=== PATIENT | female | born 1945 | race Caucasian/White ===

== ENCOUNTER 2016-08-13 10:20 | Outpatient (CLI) | payer OTHER ==
[2016-01-28 12:23] VITALS: BMI 27.9
--- NOTE | 2016-08-13 12:55 | DI ---
EXAM: Left shoulder three view HISTORY: Right shoulder pain COMPARISON: None FINDINGS: The bones are normal. The glenohumeral joint and acromioclavicular joint are normal. No f ocal soft tissue abnormality. Vi there is atherosclerosis in the aortic arch. There are surgical cl ips right neck. IMPERSSION: Normal examination right shoulder.
--- NOTE | 2016-08-13 13:04 | DI ---
EXAM: Two views of the right hip HISTORY: Right hip pain with no known injury. COMPARISON: Pelvic x-ray 10/23/2008 FINDINGS: There is no lytic or blastic lesion of the right hip. There is no displaced fracture or di slocation. Joint spaces are maintained. There is scattered osteophyte formation of the hip joint. The soft tissues are normal. IMPRESSION: Mild degenerative change of the right hip with no displaced fracture or dislocation.
--- NOTE | 2016-08-13 13:06 | DI ---
EXAM: Lumbar spine three view HISTORY: Back pain COMPARISON: 04/29/2015 TECHNIQUE: Three views lumbar spine were performed FINDINGS: Sacroiliac joints intact. Sacral arcuate intact. Mild leftward curvature lumbar spine. There are mild chronic compression deformities of L1, possibly L2 and L3, and L4, appear unchanged. Bones appear demineralized. No acute fracture. No subluxation. Multilevel marginal osteophyte fo rmation. Suggestion of facet arthrosis in the lower lumbar spine. Atherosclerotic vascular calcifi cation. IMPRESSION: 1. Chronic discogenic degenerative disease and facet arthrosis. 2. Multiple chronic compression deformities, unchanged. 3. Bones appear demineralized.
== END 2016-08-13 10:21 | disposition home or self-care (01) ==
LOC: RAD 10:20
PROVIDERS: ATTEND Internal Medicine
DX: M25.511 Pain in right shoulder (principal); M25.551 Pain in right hip; M54.9 Dorsalgia, unspecified

== ENCOUNTER 2016-10-21 09:06 | Outpatient (CLI) ==
[2016-01-28 12:23] VITALS: BMI 27.9
[2016-10-21] MEDS ORDERED: PROLIA SUBCUT STA (09:18)
[2016-10-21 09:19] VITALS: TEMP 98.4
== END 2016-10-21 09:07 | disposition home or self-care (01) ==
LOC: OPMED 09:06
PROVIDERS: ATTEND Internal Medicine
DX: M81.0 Age-related osteoporosis without current pathological fracture (principal)
CPT/HCPCS: 96372

== ENCOUNTER 2017-05-06 08:32 | Outpatient (CLI) ==
[2016-01-28 12:23] VITALS: BMI 27.9
[2017-05-06] MEDS ORDERED: PROLIA SUBCUT STA (09:11)
[2017-05-06 09:13] VITALS: BP 126/76; TEMP 97.8
== END 2017-05-06 08:33 | disposition home or self-care (01) ==
LOC: OPMED 08:32
PROVIDERS: ATTEND Internal Medicine
DX: M81.0 Age-related osteoporosis without current pathological fracture (principal)
CPT/HCPCS: 96372

== ENCOUNTER 2017-09-20 13:03 | Emergency (ER) ==
[2017-09-20 13:18] VITALS: TEMP 97; BMI 28.9
--- NOTE | 2017-09-20 13:50 | ED.PDOC ---
General ED Provider: Dr. ANTONIO ODOM Chief Complaint: Hypertension Stated Complaint: In to ER due to her Blood pressure noted to be elevated this am. She took her Morning dose of hyzaar 1/2 tablet 100/25 but when BP remained elevated additional therapy was take until total dosing of 200/50 mg Hyzar administerer. Time Seen by Physician: 15:15 Mode of Arrival: Walk-In Information Source: Patient, Family Primary Care Provider: RANDY GOEL Nursing and Triage Documentation Reviewed and Agree: Yes Reviewed sepsis parameters & appropriate labs ordered?: Yes System Inflammatory Response Syndrome: Not Applicable Sepsis Protocol: For patient's 13 years and over: Temp is 96.8 and below OR 101 and greater Pulse >90 BPM Resp >20/minute Acutely Altered Mental Status Are patient's symptoms suggestive of a new infection, such as: -Pneumonia -Skin, Soft Tissue -Endocarditis -UTI -Bone, Joint Infection -Implantable Device -Acute Abdominal Infection -Wound Infection -Meningitis -Blood Stream Catheter Infection -Unknown System Inflammatory Response Syndrome: Not Applicable Cardiovascular Complaint Exam - Hypertension Complaint/Exam Symptoms Are: Still present Timing: Intermittent Aggravating: Reports: Exertion, Position Alleviating: Reports: Rest Associated Signs and Symptoms: Reports: Anxiety, Headache (Head fullness). Denies: Chest pain, Vision changes, Recent stress, Numbness, Tingling, Weakness , Dizziness, Short of air, Swelling Related History: Reports: Similar episode, Current ARBs Related Surgical History: Reports: None Cardiac Risk Factors: Reports: Hypertension Recent Change in Medications: Yes (was recently started on prednisone for pleurodynia) A/V Nicking: No Review of Systems - Review Of Systems Constitutional: Reports: No symptoms Eyes: Reports: No symptoms Ears, Nose, Mouth, Throat: Reports: No symptoms Respiratory: Reports: No symptoms Cardiac: Reports: No symptoms GI: Reports: No symptoms : Reports: No symptoms Musculoskeletal: Reports: No symptoms Skin: Reports: No symptoms, Dryness Neurological: Reports: Headache All Other Systems: Reviewed and Negative Past Medical History - Past Medical History Previously Healthy: Yes Endocrine: Reports: Dyslipidemia Cardiovascular: Reports: Hypertension Respiratory: Reports: None Hematological: Reports: None Gastrointestinal: Reports: None Genitourinary: Reports: None Neuro/Psych: Reports: None Musculoskeletal: Reports: None Cancer: Reports: None Last Menstrual Period: Unknown - Surgical History General Surgical History: Reports: Hysterectomy, Cholecystectomy, Other ( Carotid endarterectomy november 2011) - Family History Family History: Reports: Hypertension - Social History Smoking Status: Former smoker Hx Substance Use: No Alcohol Screening: None - Immunizations Tetanus Shot up to Date: Yes Physical Exam - Physical Exam Appearance: Well-appearing Ill-appearing: Mild Pain Distress: None Eyes: EDWARD, EOMI, Conjunctiva clear, Conjunctiva inflammed ENT: Ears normal, Nose normal, Oropharynx normal Neck: Supple Respiratory: Airway patent, Breath sounds clear, Breath sounds equal Cardiovascular: RRR, Pulses normal, No rub, No murmur GI/: Soft, Nontender, No masses, Bowel sounds normal Musculoskeletal: Normal strength, ROM intact, No edema Skin: Warm, Dry, Normal color Neurological: Sensation intact, Motor intact, Alert, Oriented Psychiatric: Affect appropriate, Mood appropriate Critical Care Note - Critical Care Note Total Time (mins): 0 Course - Course Hematology/Chemistry: 09/20/17 15:53 09/20/17 15:53 Orders, Labs, Meds: Lab Review 09/20/17 09/20/17 15:53 15:53 WBC 12.39 H RBC 4.42 Hgb 13.1 Hct 38.5 MCV 87.1 MCH 29.6 MCHC 34.0 RDW Coeff of Cristiane 13.5 Plt Count 378 Immature Gran % (Auto) 0.6 Neut % (Auto) 84.4 Lymph % (Auto) 11.5 Sabine % (Auto) 3.1 Eos % (Auto) 0.1 Baso % (Auto) 0.3 Immature Gran # (Auto) 0.1 Neut # (Auto) 10.4 H Lymph # (Auto) 1.4 Sabine # (Auto) 0.4 Eos # (Auto) 0.0 Baso # (Auto) 0.0 Sodium 143 Potassium 3.7 Chloride 104 Carbon Dioxide 26 Anion Gap 16.7 BUN 19 H Creatinine 0.79 Estimated GFR (MDRD) 71.00 BUN/Creatinine Ratio 24.05 Glucose 122 H Calcium 9.8 Total Bilirubin 0.7 AST 13 L ALT 15 Alkaline Phosphatase 63 Total Protein 6.7 Albumin 3.1 L Globulin 3.6 Albumin/Globulin Ratio 0.86 Orders Category Date Time Status EKG-(ED ONLY) Stat CARDIO 09/20/17 15:33 Completed CBC W/ AUTO DIFF Stat LAB 09/20/17 15:53 Completed CMP [COMPREHENSIVE METABOLIC PANEL] Stat LAB 09/20/17 15:53 Completed Amlodipine Besylate [Norvasc] MEDS 09/20/17 17:58 Discontinued 5 mg PO ONCE STA CT HEAD W/O CONTRAST Stat RADS 09/20/17 17:20 Completed Medications Discontinued Medications Generic Name Dose Route Start Last Admin Trade Name Evan PRN Reason Stop Dose Admin Amlodipine Besylate 5 mg 09/20/17 17:58 09/20/17 18:05 Norvasc PO 09/20/17 17:59 5 mg ONCE STA Administration Vital Signs: Temp Pulse Resp BP Pulse Ox 09/20/17 18:45 186/78 H 09/20/17 18:38 197/86 H 09/20/17 18:00 149/69 H 09/20/17 17:45 186/71 H 09/20/17 17:30 179/92 H 09/20/17 17:15 178/71 H 09/20/17 17:00 178/79 H 09/20/17 13:05 97.0 F L 69 18 153/81 H 90 L FREDERIC Risk Score FREDERIC Risk Score: Risk Score Odds of by 30D 0 0.1 (0.1-0.2) 1 0.3 (0.2-0.3) 2 0.4 (0.3-0.5) 3 0.7 (0.6-0.9) 4 1.2 (1.0-1.5) 5 2.2 (1.9-2.6) 6 3.0 (2.5-3.6) 7 4.8 (3.8-6.1) Departure - Departure Time of Disposition: 19:00 Disposition: HOME SELF-CARE Discharge Problem: Uncontrolled hypertension Instructions: Hypertension (ED) Condition: Good Pt referred to PMD for follow-up: Yes (1 week) IPMP verified?: No Prescriptions: Amlodipine Besylate [Norvasc] 5 mg PO BEDTIME #30 tablet Allergies/Adverse Reactions: Allergies cefaclor [From Ceclor] Adverse Reaction (Verified 09/20/17 13:18) chlorzoxazone [From Parafon Forte] Adverse Reaction (Verified 09/20/17 13:18) Iodinated Contrast- Oral and IV Dye [Iodinated Contrast Media - IV Dye] Adverse Reaction (Verified 09/20/17 13:18) latex Adverse Reaction (Verified 09/20/17 13:18) nitrofurantoin macrocrystal [From Macrodantin] Adverse Reaction (Verified 13:18) Home Medications: Ambulatory Orders Calcium Carbonate [Calcium] 500 mg PO DAILY 10/08/13 Clopidogrel Bisulfate [Plavix] 75 mg PO DAILY 10/08/13 Carvedilol [Coreg] 12.5 mg PO BIDWM #30 tablet 10/10/13 Escitalopram Oxalate [Lexapro] 20 mg PO DAILY 10/01/14 Amlodipine Besylate [Norvasc] 5 mg PO BEDTIME #30 tablet 09/20/17 Ciprofloxacin HCl [Cipro] 250 mg PO DAILY 09/20/17 Losartan/Hydrochlorothiazide [Hyzaar 50-12.5 mg Tab] 1 tab PO BID 09/20/17 Prednisone 10 mg PO DAILYWM 09/20/17 Disposition Discussed With: Patient, Family (Instructed to attempt relaxation techniques as home) Additional Information: Recommended adding Amlodipine 5 mg daily beginning in ER department to better stabilize BP. Apparently pt has been taking 1/2 tablet Hyzar 100/[address] Goel who concurs with the addition of the Amlodipine 5 mg 1 dailyi in PM with 1 hyzar in the AM daily Discussed with Patient and her daughter.
[2017-09-20] MEDS ORDERED: NORVASC PO STA (17:58)
--- NOTE | 2017-09-20 18:27 | CT ---
EXAM: CT head without contrast 09/20/2017. Sagittal and coronal reformatted images obtained HISTORY: Head fullness. Elevated blood pressure COMPARISON: 02/05/2014 FINDINGS: There is no evidence of intracranial hemorrhage. The midline is maintained. There is no h ydrocephalus. Generalized atrophy and chronic small vessel ischemic changes. Chronic right basal ga nglia calcifications appear stable. No cerebellar tonsillar ectopia. Evaluation of the calvarium sh ows no fracture. The mastoid air cells are normally pneumatized. IMPRESSION: No acute intracranial abnormality. Stable chronic findings as described above.
[2017-09-20] MEDS ORDERED: CATAPRES PO STA (19:43)
[2017-09-20] MEDS ORDERED: CATAPRES ONE (19:44)
[2017-09-20 20:18] VITALS: BP 156/74
== END 2017-09-20 20:22 | disposition home or self-care (01) ==
LOC: ED 13:03
DX: I10 Essential (primary) hypertension (principal); R51 Headache; E78.5 Hyperlipidemia, unspecified; Z79.899 Other long term (current) drug therapy
CPT/HCPCS: 36415; 80053; 85025; 93005; 93010; 99283

== ENCOUNTER 2017-09-23 08:55 | Outpatient (CLI) ==
--- NOTE | 2017-09-23 11:10 | NM ---
EXAM: Renal flow and function study HISTORY: Hypertension COMPARISON: None. TECHNIQUE: Patient was injected 9 mCi of technetium 99m labeled Mag III intravenously. Renal flow an d function study was acquired. FINDINGS: Renal perfusion is normal. Left kidney functions normally. There is dilatation of the rig ht renal pelvis. The left renogram curve was normal. Right renogram curves suggests obstruction. S plit renal function is 42% on the right and 58% on the left. IMPRESSION: 1. Renal perfusion is normal. 2. Normally functioning left kidney. 3. Right hydronephrosis. Correlate with ultrasound.
== END 2017-09-23 08:56 | disposition home or self-care (01) ==
LOC: RAD 08:55
PROVIDERS: ATTEND Internal Medicine
DX: I10 Essential (primary) hypertension (principal); I70.1 Atherosclerosis of renal artery

== ENCOUNTER 2017-09-28 09:49 | Outpatient (CLI) ==
--- NOTE | 2017-09-28 12:35 | US ---
EXAM: Ultrasound retroperitoneal complete. HISTORY: Right hydronephrosis. COMPARISON: Nuclear medicine renal scan 09/23/2017. Abdominal CT 11/30/2011. TECHNIQUE: Multiple brito scale and color Doppler images. FINDINGS: Right kidney measures 9.7 x 3.4 x 3.5 cm. The left kidney measures 10.3 x 5.2 x 3.4 cm. There is mild right renal pelviectasis without caliectasis. Focal hyperechoic area in the lateral as pect of the mid left renal cortex noted which demonstrates posterior shadowing. There is no left hyd ronephrosis.. Urinary bladder is unremarkable. IMPRESSION: 1. Mild right pelviectasis which could represent an extrarenal pelvis given lack of caliectasis. Th ere is no significant right hydronephrosis to correspond to the abnormality on recent nuclear medicin e scan. 2. Left renal cortical calcification, not well characterized by ultrasound. 3. Abdominal CT would provide further characterization of the above findings.
== END 2017-09-28 09:50 | disposition home or self-care (01) ==
LOC: RAD 09:49
PROVIDERS: ATTEND Internal Medicine
DX: N13.30 Unspecified hydronephrosis (principal)
CPT/HCPCS: 76770

== ENCOUNTER 2017-09-30 07:56 | Outpatient (CLI) ==
--- NOTE | 2017-09-30 09:55 | CT ---
EXAM: CT ABDOMEN AND PELVIS HISTORY: Abnormal renal ultrasound indicating possible right hydronephrosis and left renal calculus. TECHNIQUE: CT abdomen and pelvis without intravenous contrast. Images were reconstructed using 3 mm section thickness. Reformations were prepared. COMPARISON: 11/30/2011 CT, review of recent ultrasound report. FINDINGS: Liver and spleen are within normal limits on this unenhanced exam. There is a round 4.3 mm calcificat ion in the splenic hilum which may represent a vascular calcification or a tiny splenic arterial aneu rysm. This is grossly stable since 2012. Gallbladder is absent. Pancreas and adrenal glands within normal limits. There is a round 5 mm calcification of the lateral left renal cortex. No other renal calcifications. Ureters are clear. No hydronephrosis. Moderate vascular calcifications. Tiny sliding hiatal hernia. Appendix has been removed per history. Normal bowel gas pattern. Minimal sigmoid diverticulosis. Urinary bladder is normal. No uterus is seen. There is no ascites. No ventral abdominal wall hernia. Degenerative disc and facet disease of the spine. Moderate Schmor l's node L1 superior endplate. Lung bases are clear. No pneumoperitoneum. IMPRESSION: 1. No right hydronephrosis identified. 2. There is a 5 mm calcification of the left kidney which is most likely parenchymal rather than a r enal stone. 3. Round 4.3 mm calcification in the splenic hilum which may represent a vascular calcification or a tiny splenic arterial aneurysm. This is grossly stable since 2012. 4. Tiny sliding hiatal hernia. 5. Moderate vascular calcifications especially of the aorta and iliac vessels may represent diabetic angiopathy and / or atherosclerosis.
== END 2017-09-30 07:57 | disposition home or self-care (01) ==
LOC: RAD 07:56
PROVIDERS: ATTEND Internal Medicine
DX: R93.429 Abnormal radiologic findings on diagnostic imaging of unspecified kidney (principal)

== ENCOUNTER 2018-01-09 10:44 | Outpatient (CLI) | payer OTHER ==
[2018-01-09 10:58] VITALS: BP 106/70; TEMP 97.2
[2018-01-09] MEDS ORDERED: PROLIA SUBCUT STA (11:01)
--- NOTE | 2018-01-09 12:02 | MAMMO ---
EXAM: Digital screening mammogram with tomosynthesis HISTORY: Screening COMPARISON: Screening FINDINGS: Digital MLO and CC views of the right and left breast were performed. Tomosynthesis was p erformed. Computer aided detection utilized. There are scattered fibroglandular densities. There is no evidence for mass, asymmetry, distortion, or suspicious calcifications in either breast. IMPRESSION: 1. No evidence of malignancy in the right or left breast. 2. Annual screening mammogram is recommended in one year. BIRADS category 1, negative examination
== END 2018-01-09 10:45 | disposition home or self-care (01) ==
LOC: RAD 10:44
PROVIDERS: ATTEND Internal Medicine
DX: Z12.31 Encounter for screening mammogram for malignant neoplasm of breast (principal); M81.0 Age-related osteoporosis without current pathological fracture
CPT/HCPCS: 77067; 96372

== ENCOUNTER 2018-03-13 15:00 | Outpatient (CLI) | payer OTHER ==
--- NOTE | 2018-03-13 16:56 | DI ---
EXAM: Three views of the left ankle. History: Left ankle swelling. Findings: No acute fracture or dislocation. No abnormal calcifications or radiopaque foreign bodies . Joint spaces are preserved. Mild diffuse subcutaneous edema. Impression: No acute osseous abnormality. Mild diffuse subcutaneous edema
== END 2018-03-13 15:01 | disposition home or self-care (01) ==
LOC: RAD 15:00
PROVIDERS: ATTEND Internal Medicine
DX: M25.572 Pain in left ankle and joints of left foot (principal); M25.472 Effusion, left ankle

== ENCOUNTER 2018-07-14 09:00 | Outpatient (CLI) ==
--- NOTE | 2018-07-14 09:53 | CT ---
EXAM: CT of the chest without contrast History: Chest pain. Comparison: Chest radiograph 07/06/2018, chest CT 06/21/2014 Technique: Multiplanar CT images through the thorax were obtained without the administration of IV c ontrast. 3-D reconstructions were also acquired Findings: Heart size is normal. No thoracic aortic aneurysm. No pericardial effusion. Atherosclero tic vascular calcifications of the thoracic aorta. No axillary lymphadenopathy. No pathologically e nlarged mediastinal or hilar lymph nodes. Calcified granulomas again seen within the thorax. Biapic al lung scarring again noted. Mild to moderate emphysema again appreciated. Scattered areas of subs egmental atelectasis similar to the prior study. No consolidated pneumonia. No pleural fluid and no pneumothorax. No suspicious lung masses or lung nodules. Within the visualized upper abdomen, status post cholecystectomy. No acute osseous abnormalities. A few old chronic compression deformities seen within the spine. Impression: 1. No acute intrathoracic process. 2. Emphysema. 3. No change in the biapical lung scarring and scattered areas of subsegmental atelectasis.
== END 2018-07-14 09:01 | disposition home or self-care (01) ==
LOC: RAD 09:00
PROVIDERS: ATTEND Internal Medicine
DX: R91.8 Other nonspecific abnormal finding of lung field (principal); R07.81 Pleurodynia
CPT/HCPCS: 36415

== ENCOUNTER 2018-07-21 10:09 | Outpatient (CLI) ==
[2018-07-21] MEDS ORDERED: PROLIA SUBCUT STA (10:25)
[2018-07-21 10:41] VITALS: BP 154/83; TEMP 97.2
== END 2018-07-21 10:33 | disposition home or self-care (01) ==
LOC: OPMED 10:09
PROVIDERS: ATTEND Internal Medicine
DX: M81.0 Age-related osteoporosis without current pathological fracture (principal)
CPT/HCPCS: 96372

== ENCOUNTER 2018-09-20 07:49 | Outpatient (CLI) | END 2018-09-20 07:50 | disposition home or self-care (01) | LOC: AMBL 07:49 | PROVIDERS: ATTEND Internal Medicine | DX: R42 Dizziness and giddiness (principal) ==

== ENCOUNTER 2019-03-06 08:08 | Outpatient (CLI) ==
--- NOTE | 2019-03-06 09:31 | DEXA ---
EXAM: Bone Densitometry DEXA HISTORY: Postmenopausal FINDINGS: DEXA scan of the lumbar spine was performed. Quality of the study is good. Bone mineral density is 0.85 a grams per square centimeter. T-score is negative 2.7. Z-score is negative 1.0. DEXA scan left hip was performed. Quality of the study is good. Bone marrow density is 0.875 with a T-score of negative 1.1 and a Z-score of 0.6. Bone marrow density of the femoral neck is 0.776 with a T-score of negative 1.9 and a Z-score of 0.0. DEXA scan right hip was performed. Quality of the study is good. Bone marrow density is 0.884 with a T-score of negative 1.0 and a Z-score of 0.7. Bone marrow density of the femoral neck is 0.777 wit h a T-score of negative 1.9 and a T-score of 0.0. IMPRESSION: 1. Lumbar spine: Osteoporosis. 2. Left hip: Osteopenia 3. Left femoral neck: Osteopenia 4. Right hip: Borderline osteopenia 5. Right femoral neck: Osteopenia 6. 10 year risk for major osteoporotic fracture is 19.3% and for hip fracture is 4.5%. Reference Values according to World Health Organization criteria: T score greater than -1 is normal T score -1 to -2.5 is osteopenia T score less than -2.5 is osteoporosis.
--- NOTE | 2019-03-07 09:25 | MAMMO ---
EXAM: Digital screening mammogram with Tomosynthesis HISTORY: Screening COMPARISON: 01/09/2018 FINDINGS: Digital MLO and CC views of the right and left breast were performed. Tomosynthesis was performed. Computer aided detection utilized. There are scattered fibroglandular densities. There i s no evidence for mass, asymmetry, distortion, or suspicious calcifications in either breast. IMPRESSION: 1. No evidence of malignancy in the right or left breast. 2. Annual screening mammogram is recommended in one year. BIRADS category 1, negative examination
== END 2019-03-06 08:09 | disposition home or self-care (01) ==
LOC: RAD 08:08
PROVIDERS: ATTEND Internal Medicine
DX: Z12.31 Encounter for screening mammogram for malignant neoplasm of breast (principal); Z78.0 Asymptomatic menopausal state

== ENCOUNTER 2019-03-09 12:17 | Emergency (ER) | payer OTHER ==
--- NOTE | 2019-03-09 12:20 | ED.PDOC ---
General ED Provider: Dr. ESPERANZA HENNING Chief Complaint: Back Pain Stated Complaint: Back pain - lower thoracic - pain radiating to bilateral ribs - hurts to take deep breath. Started 3 days ago - twisting getting out of car and felt an instantaneous pain. Hx of osteoporosis - on Prolia X 3 years. Time Seen by Physician: 12:37 Mode of Arrival: Wheelchair Information Source: Patient Exam Limitations: No limitations Primary Care Provider: RANDY GOEL Nursing and Triage Documentation Reviewed and Agree: Yes Does patient meet sepsis criteria?: No System Inflammatory Response Syndrome: Not Applicable Sepsis Protocol: For patient's 13 years and over: Temp is 96.8 and below OR 101 and greater Pulse >90 BPM Resp >20/minute Acutely Altered Mental Status Are patient's symptoms suggestive of a new infection, such as: -Pneumonia -Skin, Soft Tissue -Endocarditis -UTI -Bone, Joint Infection -Implantable Device -Acute Abdominal Infection -Wound Infection -Meningitis -Blood Stream Catheter Infection -Unknown Review of Systems - Review Of Systems Constitutional: Reports: No symptoms Respiratory: Reports: No symptoms Musculoskeletal: Reports: Back pain (Thoracic) All Other Systems: Reviewed and Negative Past Medical History - Past Medical History Previously Healthy: Yes Endocrine: Reports: Dyslipidemia Cardiovascular: Reports: Hypertension Respiratory: Reports: None Hematological: Reports: None Gastrointestinal: Reports: None Genitourinary: Reports: None Neuro/Psych: Reports: None Musculoskeletal: Reports: None Cancer: Reports: None - Surgical History General Surgical History: Reports: Hysterectomy, Cholecystectomy, Other ( Carotid endarterectomy november 2011) - Family History Family History: Reports: Hypertension - Social History Smoking Status: Former smoker Hx Substance Use: No Alcohol Screening: None Physical Exam - Physical Exam Appearance: Well-appearing Ill-appearing: None Pain Distress: Moderate (When lying still on exam bed) Respiratory: Airway patent, Breath sounds clear, Breath sounds diminished Cardiovascular: RRR, Pulses normal GI/: Soft, Nontender, No masses Musculoskeletal: Normal strength, ROM intact, No edema Skin: Warm, Dry, Normal color Neurological: Sensation intact, Motor intact, Alert, Oriented Psychiatric: Affect appropriate, Mood appropriate Interpretation - Radiology Interpretation Radiology Interpretation By: Radiologist Radiology Results: Positive (Age inderterminate compression FX T9 (new from )) Exam Interpreted: CT Scan (Thoracic) Critical Care Note - Critical Care Note Total Time (mins): 15 Course - Course Orders, Labs, Meds: Orders Category Date Time Status CT THORACIC SPINE W/O CONTRAST Stat RADS 03/09/19 12:47 Completed Vital Signs: Temp Pulse Resp BP Pulse Ox 03/09/19 12:17 97.8 F 67 20 160/84 H 91 L Departure - Departure Time of Disposition: 14:42 Disposition: HOME SELF-CARE Discharge Problem: Compression fracture of body of thoracic vertebra Osteoporosis Qualifiers: Osteoporosis type: unspecified Presence of current pathological fracture: unspecified Qualified Code(s): M81.0 - Age-related osteoporosis without current pathological fracture Instructions: Osteoporosis (ED) Condition: Stable Pt referred to PMD for follow-up: Yes (Make appointment) IPMP verified?: No (N/A) Additional Instructions: Follow up with Dr. Goel; call for appointment. Use pain medications as prescribed. Discuss with primary care provider the probability of a new compression fracture suggested by CT scan. Prescriptions: Tramadol HCl [Ultram] 50 mg PO Q6H #20 tablet Allergies/Adverse Reactions: Allergies cefaclor [From Ceclor] Adverse Reaction (Verified 03/09/19 12:26) chlorzoxazone [From Parafon Forte] Adverse Reaction (Verified 03/09/19 12:26) Iodinated Contrast Media [Iodinated Contrast Media - IV Dye] Adverse Reaction ( Verified 03/09/19 12:26) latex Adverse Reaction (Verified 03/09/19 12:26) nitrofurantoin macrocrystal [From Macrodantin] Adverse Reaction (Verified 12:26) Home Medications: Ambulatory Orders Calcium Carbonate [Calcium] 500 mg PO DAILY 10/08/13 Clopidogrel Bisulfate [Plavix] 75 mg PO DAILY 10/08/13 Escitalopram Oxalate [Lexapro] 20 mg PO DAILY 10/01/14 Carvedilol [Coreg] 12.5 mg PO BIDWM PRN 03/09/19 Denosumab [Prolia] 60 mg SQ DIRECTED 03/09/19 Ezetimibe [Zetia] 10 mg PO DAILY 03/09/19 Tramadol HCl [Ultram] 50 mg PO Q6H #20 tablet 03/09/19 Disposition Discussed With: Patient
[2019-03-09 12:25] VITALS: BP 160/84; TEMP 97.8; BMI 29.2
--- NOTE | 2019-03-09 14:19 | CT ---
EXAM: CT thoracic spine without contrast HISTORY: Upper back pain COMPARISON: CT chest 07/04/2018 TECHNIQUE: CT thoracic spine performed without intravenous contrast. Coronal and sagittal reformatt ed images obtained. FINDINGS: Bones appear demineralized. Mild chronic compression deformity L1 superior endplate. Mil d chronic compression deformity T7. Mild to moderate chronic compression deformity T8. Mild parveen ara fracture deformity T9 is age indeterminate and new from 07/04/2018. Mild multilevel chronic dis cogenic degenerative disease with intervertebral disc space narrowing and marginal osteophyte formati on. Several hemangiomas suggested. Mild rightward curvature thoracic spine. Emphysematous change. Atherosclerosis. Status post cholecystectomy. IMPRESSION: 1. Mild age indeterminate compression fracture T9 is new from 07/04/2018. 2. Additional mild to moderate chronic compression deformities T7, T8, L1. 3. Chronic discogenic degenerative disease. 4. Bones appear demineralized. 5. Emphysema.
== END 2019-03-09 15:20 | disposition home or self-care (01) ==
LOC: ED 12:17
DX: S22.070A Wedge compression fracture of T9-T10 vertebra, initial encounter for closed fracture (principal); S22.060A Wedge compression fracture of T7-T8 vertebra, initial encounter for closed fracture; S32.010A Wedge compression fracture of first lumbar vertebra, initial encounter for closed fracture; M81.0 Age-related osteoporosis without current pathological fracture
CPT/HCPCS: 99282

== ENCOUNTER 2023-08-10 02:05 | Inpatient (IN) ==
--- NOTE | 2023-08-10 02:40 | ED.PDOC ---
General ED Provider: Dr. MICHA ECHOLS DO Chief Complaint: Hypertension Stated Complaint: 78-year-old female presents to the ER complaining of elevated blood pressure. Blood pressure is 220s over 110s on presentation. She reports that she took her blood pressure because she started to get a headache tonight just prior to arrival. She has had a longstanding problem with hypertension and uncontrolled hypertension. She sees Dr. Goel. She reports compliance with her medications to include bisoprolol and triamterene hydrochlorothiazide. She denies chest pain or shortness of breath. Denies recent illness or fever. Denies any syncope, vision changes, hearing changes neck pain or other constitutional symptoms. She is on Plavix for carotid artery disease for which she has had 3 different surgeries the most recent one on July 02. Time Seen by Provider: 08/10/23 02:07 Mode of Arrival: Walk-In Information Source: Patient Primary Care Provider: RANDY GOEL MD Nursing and Triage Documentation Reviewed and Agree: Yes What is Opioid Naive?: *Opioid Naive implies the patient is not already taking opioids or not chronically receiving opioids on a daily basis. *PRN dosing is not "usually" associated with tolerance. *Patients are at higher risk of over-sedation and aspiration. What is Opioid Tolerant?: *Opioid Tolerance implies less than the expected response to an opioid. *Acquired tolerance is defined by the patient taking 60mg of oral morphine daily (or equianalgesic dose of another opioid) for 1 week or more. *Often associated with chronic pain. *May take more than usual dose to achieve desired pain control. Review of Systems Review Of Systems Constitutional: Reports No symptoms Eyes: Reports No symptoms Ears, Nose, Mouth, Throat: Reports No symptoms Respiratory: Reports No symptoms Cardiac: Reports No symptoms : Reports No symptoms Musculoskeletal: Reports No symptoms Skin: Reports No symptoms Neurological: Reports Headache; Denies Numbness, Tingling or Weakness Endocrine: Reports No symptoms Hematologic/Lymphatic: Reports No symptoms [facility] Medical History Hypertension 2013 I10 - Essential (primary) hypertension (ICD-10) Hyperlipidemia for a few years E78.5 - Hyperlipidemia, unspecified (ICD-10) Personal history of mental disorder of pain a few years Z86.59 - Personal history of other mental and behavioral disorders (ICD-10) Social History Smoking and tobacco status: Former smoker History of recent travel: No Surgical History History of gastrointestinal surgery 2012 gall bladder Z98.890 - Other specified postprocedural states (ICD-10) Female Reproductive History Menstrual Hx Hysterectomy: Yes Hx Tubal Ligation: No Physical Exam Physical Exam Appearance: Reports Well-appearing, No pain distress and Well-nourished Eyes: Reports EDWARD and EOMI ENT: Reports Nose normal and Oropharynx normal Neck: Supple Respiratory: Reports Airway patent and Breath sounds clear Cardiovascular: Reports RRR, Pulses normal and Other (Hypertensive) Musculoskeletal: Reports Normal strength, ROM intact and No edema Skin: Reports Warm, Dry and Normal color Neurological: Reports Sensation intact and Motor intact Psychiatric: Reports Affect appropriate and Mood appropriate Interpretation EKG Interpretation Time of EKG #1: 02:15 Rate: Normal Rhythm: Sinus Ectopy: None [place]: NL ST Segment: Normal Interpretation: Nonischemic EKG Course Course 08/10/23 02:08 08/10/23 02:08 Orders, Labs, Meds: Lab Review 08/10/23 08/10/23 08/10/23 02:08 03:14 Unknown WBC 7.10 RBC 4.55 Hgb 13.2 Hct 42.2 MCV 92.7 MCH 29.0 MCHC 31.3 L RDW Coeff of Cristiane 13.7 Plt Count 248 Immature Gran % (Auto) 0.3 Neut % (Auto) 59.3 Lymph % (Auto) 28.6 Humphreys % (Auto) 7.7 Eos % (Auto) 3.8 Baso % (Auto) 0.3 Neut # (Auto) 4.2 Lymph # (Auto) 2.0 Humphreys # (Auto) 0.6 Eos # (Auto) 0.3 Baso # (Auto) 0.0 Immature Gran # (Auto) 0.0 Sodium 138.8 Potassium 4.77 Chloride 106.4 Carbon Dioxide 20.1 L Anion Gap 17.07 BUN 17.0 Creatinine 0.67 Estimated GFR (MDRD) 85.00 BUN/Creatinine Ratio 25.37 Glucose 100.4 Calcium 9.15 Total Bilirubin 1.88 H AST 42.5 H ALT 17.6 Alkaline Phosphatase 41.3 L Troponin I 0.028 NT-Pro-B Natriuret Pep 589 H Total Protein 7.55 Albumin 4.30 Globulin 3.25 Albumin/Globulin Ratio 1.32 Urine Color Yellow Urine Clarity Clear Urine pH 6.5 Ur Specific Lookout 1.025 Urine Protein Negative Urine Glucose (UA) Negative Urine Ketones Negative Urine Blood Trace-intact H Urine Nitrite Negative Urine Bilirubin Negative Urine Urobilinogen 1.0 H Ur Leukocyte Esterase Trace H Urine Microscopic RBC 2-5 Ur Squamous Epith Cells 0-2 Orders Category Date Time Status EKG-(ED ONLY) Stat CARDIO 08/10/23 02:07 Completed CBC W/ AUTO DIFF Stat LAB 08/10/23 02:08 Completed CMP [COMPREHENSIVE METABOLIC PANEL] Stat LAB 08/10/23 02:08 Completed PROBNP ED [NT-PROBNP(ED)] Stat LAB 08/10/23 Completed TROPONIN I Stat LAB 08/10/23 02:08 Completed URINALYSIS C & S IF INDICATED Stat LAB 08/10/23 03:14 Completed Acetaminophen [Tylenol] Meds 08/10/23 02:44 Discontinued 500 mg PO ONCE ONE Clonidine HCl [Catapres] Meds 08/10/23 02:37 Discontinued 0.2 mg PO ONCE ONE Furosemide [Lasix] Meds 08/10/23 03:29 Stat 60 mg IVP ONCE STA Lorazepam [Ativan] Meds 08/10/23 02:40 Discontinued 0.25 mg IVP ONCE STA CHEST, 1V AP ONLY Stat RADS 08/10/23 02:08 Completed Medications Discontinued Medications Generic Name Dose Route Start Last Admin Trade Name Iftikharq PRN Reason Stop Dose Admin Acetaminophen 500 mg 08/10/23 02:44 08/10/23 03:01 Acetaminophen 500 Mg Tablet PO 08/10/23 02:45 500 mg ONCE ONE Administration Clonidine 0.2 mg 08/10/23 02:37 08/10/23 03:01 Clonidine Hcl 0.1 Mg Tablet PO 08/10/23 02:38 0.2 mg ONCE ONE Administration Lorazepam 0.25 mg 08/10/23 02:40 08/10/23 03:00 Lorazepam Inj 2 Mg/Ml Vial IVP 08/10/23 02:41 0.25 mg ONCE STA Administration Vital Signs: Temp Pulse Resp BP Pulse Ox 08/10/23 02:13 98.2 F 60 18 230/120 H 99 AMI Core Aspirin Reason for not ordering Aspirin: not indicated FREDERIC Risk Score Age >/= 65: Yes >/= 3 CAD Risk Factors: No Known CAD (Stenosis >/= 50%): Yes ASA Use in Past 7 Days: Yes Severe Angina (>/= 2 episodes in 24 hours): No EKG ST Changes >/= 0.5mm: No Postive Cardiac Marker: No FREDERIC Total Score: 3 FREDERIC Risk Score: Risk Score Odds of by 30D 0 0.1 (0.1-0.2) 1 0.3 (0.2-0.3) 2 0.4 (0.3-0.5) 3 0.7 (0.6-0.9) 4 1.2 (1.0-1.5) 5 2.2 (1.9-2.6) 6 3.0 (2.5-3.6) 7 4.8 (3.8-6.1) Physician Progress Note: 78-year-old female with history of hypertension presents to the ER hypertensive with headache. Nonfocal neuroexam with respect to cranial nerves, peripheral sensorimotor. Low suspicion for acute neurologic event to include but not limited to CVA, TIA, SAH, SDH, ICH. Afebrile nontoxic doubt infectious etiology. Denies chest pain or shortness of breath. Doubt acute cardiopulmonary processes to include not limited to ACS, MD, PE, pneumothorax, dissection or tamponade. Given age and risk factors however, will evaluate cardiac enzymes in addition to laboratory workup to assess for endorgan damage. Will trial clonidine initially as this was discussed with her in the past for breakthrough hypertension. Her headache is nearly gone but will give a dose of Tylenol as well as the clonidine. Will consider nitroglycerin. The patient has a heart rate between 60 and 65, suspect secondary to her beta-mandi usage, therefore other medications may drop the pulse more than I would prefer in the emergency department this evening. Will review her workup for disposition planning [] 0329: BNP mildly increased. Will give a dose of Lasix. She is currently on a diuretic at home as well. She does have some cardiomegaly on her chest x-ray. Otherwise no evidence of altagracia CHF exacerbation. She is not hypoxic in any distress. Her blood pressure has improved significantly with the clonidine. 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 She does have access to her primary physician as well therefore I feel this patient is stable for discharge at this time. Discharge Plan Discharge Patient Disposition: HOME SELF-CARE Discharge Problem: Hypertensive urgency, Elevated brain natriuretic peptide (BNP) level Instructions: Heart Failure (ED), Hypertensive Crisis (ED) Prescriptions: New clonidine HCl 0.1 mg tablet 0.1 mg PO Q8H PRN (Reason: breakthrough hypertention) Qty: 30 0RF No Action escitalopram oxalate 20 mg tablet See Rx Instructions .ROUTE .COMPLEX Qty: 30 2RF Dose Instruction: TAKE ONE TABLET DAILY GENERIC FOR LEXAPRO Rx Instructions: TAKE ONE TABLET DAILY GENERIC FOR LEXAPRO triamterene-hydrochlorothiazid 37.5-25 mg capsule See Rx Instructions .ROUTE .COMPLEX Qty: 15 3RF Dose Instruction: TAKE ONE CAPSULE THREE TO FOUR TIMES A WEEK FOR LEG EDEMA GENERIC FOR DYAZIDE Rx Instructions: TAKE ONE CAPSULE THREE TO FOUR TIMES A WEEK FOR LEG EDEMA GENERIC FOR DYAZIDE diphenoxylate-atropine [Lomotil] 2.5-0.025 mg tablet 1 tab PO TID PRN (Reason: diarrhea) Qty: 10 0RF clopidogrel [Plavix] 75 MG tablet 75 mg PO DAILY calcium carbonate [Calcium 500] 500 MG tablet 500 mg PO DAILY oxycodone-acetaminophen [Percocet] 2.5-325 mg Tablet 1 tab PO Q6H PRN (Reason: Pain) ferrous sulfate 325 mg (65 mg iron) tablet 325 mg PO BID omeprazole 20 mg capsule,delayed release(DR/EC) 20 mg PO QDAY bisoprolol fumarate 5 mg tablet 5 mg PO QDAY Qty: 30 2RF pravastatin 10 mg tablet 10 mg PO QDAY Did you review [place] 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
--- NOTE | 2023-08-10 02:41 | DI ---
EXAM: AP CHEST. HISTORY: Weakness. FINDINGS: The bones are unremarkable. The cardiac silhouette is enlarged. The pulmonary vasculature is within normal limits. There are calcified granulomas. There is minimal left basilar atelectasis . There is eventration of the right hemidiaphragm. Impression: Left basilar atelectasis. Cardiomegaly.
[2023-08-10 02:50] LABS: BASOPHILS % (AUTO) 0.3 % (0.0-3.0); EOSINOPHILS # (AUTO) 0.3 K/ul (0.0-0.7); EOSINOPHILS % (AUTO) 3.8 % (0.0-7.0); HEMATOCRIT 42.2 % (37.0-47.0); HEMOGLOBIN 13.2 g/dl (12.0-16.0); IMMATURE GRANULOCYTE % (AUTO) 0.3 % (0.0-5.0); LYMPHOCYTES % (AUTO) 28.6 (10.0-50.0); MEAN CORPUSCULAR HGB CONC 31.3 (31.8-35.4); MEAN CORPUSCULAR VOLUME 92.7 fl (81.0-99.0); MONOCYTES # (AUTO) 0.6 K/uL (0.4-2.0); MONOCYTES % (AUTO) 7.7 (0-10); NEUTROPHILS # (AUTO) 4.2 K/ul (2.0-6.9); NEUTROPHILS % (AUTO) 59.3 % (42.2-75.2); PLATELET COUNT 248 10^3/uL (140-440); RDW COEFFICIENT OF VARIATION 13.7 % (11.6-14.8); RED BLOOD COUNT 4.55 10^6/ul (4.20-5.40)
[2023-08-10] MEDS: ATIVAN IVP STA (03:00)
[2023-08-10] MEDS: CATAPRES PO ONE (03:01)
[2023-08-10] MEDS: TYLENOL PO ONE (03:01)
[2023-08-10 03:03] LABS: ALANINE AMINOTRANSFERASE 17.6 U/L (0-35); ALBUMIN 4.3 g/dL (3.5-5.0); ALKALINE PHOSPHATASE 41.3 U/L (53-141); ASPARTATE AMINO TRANSFERASE 42.5 U/L (14-36); BILIRUBIN,TOTAL 1.88 mg/dL (0.2-1.3); CALCIUM 9.15 mg/dL (8.4-10.2); CARBON DIOXIDE 20.1 mmol/L (22-30.0); CHLORIDE 106.4 mmol/L (98-107); CREATININE 0.67 mg/dL (0.60-1.30); GLUCOSE 100.4 mg/dL (74-106); POTASSIUM 4.77 mmol/L (3.5-5.1); SODIUM 138.8 mmol/L (134.5-145); TOTAL PROTEIN 7.55 g/dL (6.3-8.2)
[2023-08-10 03:14] LABS: TROPONIN I 0.028 ng/ml (0.0000-0.120)
[2023-08-10 03:21] LABS: BILIRUBIN,URINE Negative (NEGATIVE); CLARITY,URINE Clear (CLEAR); COLOR,URINE Yellow (YELLOW); GLUCOSE, URINE (UA) Negative (NEGATIVE); KETONES,URINE Negative (NEGATIVE); LEUKOCYTE ESTERASE ,URINE Trace (NEGATIVE); NITRITE,URINE Negative (NEGATIVE); PH,URINE 6.5 (5-9); PROTEIN,URINE Negative (NEGATIVE); URINE, BLOOD Trace-intact (NEGATIVE)
[2023-08-10 03:24] LABS: SQUAMOUS EPITHELIAL CELL,UR 0-2 (0-5)
[2023-08-10] MEDS: LASIX IVP STA (03:38)
[2023-08-10] MEDS: SODIUM CHLORIDE 500 ML IV ONE (04:12)
[2023-08-10] MEDS: ZOFRAN 4 MG/2 ML IVP STA (05:03)
[2023-08-10] MEDS: GLUCAGEN IVP STA (05:04)
[2023-08-10] MEDS: EPINEPHRINE 1 MG/10 ML SYRINGE ONE (05:10)
[2023-08-10] MEDS: SODIUM CHLORIDE IV SCH (05:44)
[2023-08-10] MEDS: EPINEPHRINE IV SCH (05:44)
[2023-08-10] MEDS: EPINEPHRINE 1 MG/ML AMP ONE (05:45)
[2023-08-10] MEDS: LEVOPHED 4 MG/250 ML NS 4 MG/250 ML BAG IV SCH (06:00)
[2023-08-10] MEDS: LEVOPHED 4 MG/250 ML NS 4 MG/250 ML BAG IV ONE (06:03)
[2023-08-10 06:38] LABS: SARS COV-2 RNA RAPID NAAT NEGATIVE (NEGATIVE)
[2023-08-10] MEDS: SODIUM CHLORIDE 1,000 ML IV ONE (07:05)
[2023-08-10 08:31] VITALS: BMI 28.9
[2023-08-10] MEDS: EPINEPHRINE 1 MG/10 ML SYRINGE IVP STA (09:18)
[2023-08-10] MEDS: DOPAMINE 400 MG/250 ML D5W 400 MG/250 ML BAG IV SCH (10:03)
[2023-08-10] MEDS: SODIUM CHLORIDE 1,000 ML IV SCH (10:13)
[2023-08-10] MEDS ORDERED: LOMOTIL PO PRN (11:05)
[2023-08-10] MEDS: PROTONIX PO SCH (15:22)
[2023-08-10] MEDS: PRILOSEC PO SCH (15:43)
[2023-08-10] MEDS: PRAVACHOL PO SCH ×2 (15:43→17:35)
[2023-08-10] MEDS: FERROUS SULFATE PO SCH (17:34)
[2023-08-10] MEDS: PLAVIX PO SCH (17:34)
[2023-08-10] MEDS ORDERED: NON-FORMULARY MEDICATION (Ferrous Sulfate 325 mg (65 mg iron) tablet) PO SCH (21:00)
[2023-08-11 06:30] LABS: BASOPHILS # (AUTO) 0.1 K/uL (0-0.2); BASOPHILS % (AUTO) 0.9 % (0.0-3.0); EOSINOPHILS # (AUTO) 0.3 K/ul (0.0-0.7); EOSINOPHILS % (AUTO) 4.5 % (0.0-7.0); HEMATOCRIT 37.1 % (37.0-47.0); HEMOGLOBIN 11.8 g/dl (12.0-16.0); IMMATURE GRANULOCYTE % (AUTO) 0.2 % (0.0-5.0); LYMPHOCYTES # (AUTO) 1.8 K/uL (0.60-3.4); MEAN CORPUSCULAR HEMOGLOBIN 29.5 pg (27.0-31.0); MEAN CORPUSCULAR HGB CONC 31.8 (31.8-35.4); MEAN CORPUSCULAR VOLUME 92.8 fl (81.0-99.0); MONOCYTES # (AUTO) 0.5 K/uL (0.4-2.0); MONOCYTES % (AUTO) 7.1 (0-10); NEUTROPHILS # (AUTO) 3.9 K/ul (2.0-6.9); NEUTROPHILS % (AUTO) 59.3 % (42.2-75.2); PLATELET COUNT 215 10^3/uL (140-440); RDW COEFFICIENT OF VARIATION 13.6 % (11.6-14.8); WHITE BLOOD COUNT 6.51 K/ul (4.6-10.2)
[2023-08-11 06:44] LABS: ALANINE AMINOTRANSFERASE 13.6 U/L (0-35); ALBUMIN 3.57 g/dL (3.5-5.0); ALKALINE PHOSPHATASE 51.8 U/L (53-141); ASPARTATE AMINO TRANSFERASE 26.5 U/L (14-36); BILIRUBIN,TOTAL 1.94 mg/dL (0.2-1.3); BLOOD UREA NITROGEN 14.1 mg/dL (7-17); CALCIUM 8.81 mg/dL (8.4-10.2); CHLORIDE 105.9 mmol/L (98-107); CREATININE 0.63 mg/dL (0.60-1.30); GLUCOSE 104.6 mg/dL (74-106); POTASSIUM 3.62 mmol/L (3.5-5.1); SODIUM 139.1 mmol/L (134.5-145); TOTAL PROTEIN 6.06 g/dL (6.3-8.2)
[2023-08-11 06:54] LABS: CARBON DIOXIDE 28.8 mmol/L (22-30.0)
[2023-08-11] MEDS: CALCIUM 500 + VIT D 5 MCG (200 IU) TABLET PO SCH (08:09)
[2023-08-11] MEDS: LEXAPRO PO SCH (08:10)
[2023-08-11] MEDS ORDERED: CALCIUM CARBONATE 500 MG PO SCH (09:00)
[2023-08-11] MEDS: DYAZIDE PO SCH (09:23)
[2023-08-11] MEDS: DECADRON IM ONE (09:24)
[2023-08-11] MEDS: COZAAR PO SCH (09:24)
--- NOTE | 2023-08-11 14:01 | HP ---
DATE OF SERVICE: 08/10/23 REASON FOR HOSPITALIZATION: Hypertension HISTORY OF PRESENT ILLNESS: 78 year old white female was seen in the emergency room early in the morning 08/10/23 with complaint of having severe hypertension noted at home. The patient's blood pressure was 220-240 at home. In the emergency room it was noted to be 230/120. Also had headache with it. The patient was given 0.2mg of Clonidine. The blood pressure bottomed out and was systolic of 60. The patient had mild dizziness with it. The patient had taken Clonidine PRN 0.1mg a couple of time a day for blood pressure over 160 in the past. PAST MEDICAL HISTORY/PAST SURGICAL HISTORY: History of labile hypertension for number of years Severe chronic lung disease from smoking in the past Compression fracture T9, T7 and T8 Back pain Severe osteoporosis Right carotid endarterectomy followed by vascular surgeon History of bilateral lung nodule Anemia followed by Dr. Baker Dyslipidemia Depression treated with Lexapro Status post cholecystectomy History of renal artery stenosis History of noncompliance REVIEW OF SYSTEMS: CONSTITUTIONAL: No night sweats. No fatigue, malaise, lethargy. No fever or chills. HEENT: Eyes: No visual changes. No eye pain. No eye discharge. ENT: No runny nose. No epistaxis. No sinus pain. No sore throat. No odynophagia. No ear pain. No congestion. RESPIRATORY: No cough, no congestion. No hemoptysis. No shortness of breath. CARDIOVASCULAR: No angina symptoms. No CHF symptoms. No atypical chest pain for CAD. No palpitations. No PND. No orthopnea. GASTROINTESTINAL: No abdominal pain. No nausea or vomiting. No diarrhea or constipation. No hematemesis. No hematochezia. GENITOURINARY: No urgency. No frequency. No dysuria. No hematuria. No obstructive symptoms. No discharge. No pain. No significant abnormal bleeding. MUSCULOSKELETAL: No musculoskeletal pain. No joint swelling. No arthritis. NEUROLOGICAL: No headache. No neck pain. No syncope. No seizures. No dizziness. PSYCHIATRIC: Not anxious. No depression. No suicidal thoughts. No homicidal thoughts. SKIN: No rash. No lesions. No wounds. ENDOCRINE: No unexplained weight loss. No weight gain. HEMATOLOGIC/LYMPHATIC: No anemia. No purpura. No petechiae. No prolonged or excessive bleeding. No palpable lymph nodes. PERSONAL/FAMILY/SOCIAL HISTORY: The patient is nonsmoker, used to be heavy smoker. Quit a few years ago. no alcohol abuse, , lives with the . She does all activity of daily living. MEDICATIONS: Calcium Carbonate Clopidogrel oxycodone Ferrous sulfate Omeprazole Lexapro Dyazide Lomotil Bisoprolol Pravastatin Clonidine PRN Oxycodone ALLERGIES: Cefaclor Iodinated contrast Latex Nitrofurantoin Sulfa Keflex PHYSICAL EXAMINATION: GENERAL: The patient is oriented to time, place and person. VITAL SIGNS: Temperature 97.6, pulse 70, respiratory rate 18, blood pressure 104/50 and pulse ox 95% on room air. The patient is on 2mcg Levophed drip. HEENT: Head normocephalic, atraumatic. Eyes: Extraocular muscles are intact. Pupils are equal, round and reactive to light and accommodation. Ears: No lesions. Nose appeared normal. Throat: No exudate or erythema. Kyphosis present. NECK: Supple. No JVD, no carotid bruit. No lymphadenopathy or thyromegaly. LUNGS: Decreased breath sounds with good air entry. Clear to auscultation. Percussion note normal. Chest symmetrical. HEART: S1, S2, no S3. No murmur. No cyanosis or clubbing. No ascites. Pulses: Dorsalis pedis and posterior tibial pulses +1 to +2 bilaterally. ABDOMEN: Soft. Nontender. Bowel sounds active. No CVA tenderness. No mass felt. EXTREMITIES: No edema. Full range of motion of all extremities, equal. NEUROLOGIC: No focal deficit. Cranial nerves II through XII are grossly intact. No headache, no double vision or headache. SKIN: Not dry. Intact. Turgor - normal. LYMPHATIC: No palpable lymph nodes/no lymphedema. MUSCULOSKELETAL: Normal joints with no swelling. Muscle tone is normal. LABS: EKG sinus rhythm, possible LVH. no acute changes. Hgb 13, hct 42, WBC 7,100 normal differential, creatinine 0.6, BUN 17, potassium 2.7, liver profile normal. PRO BNP 589. The patient was given IV Lasix and then Clonidine 0.2mg which blood pressure dropped to systolic 60. The patient is being given IV fluids. The patient is on Levophed drip with blood pressure systolic more than 100. Hypotension induced by Clonidine ASSESSMENT: 1. Hypotension induced by Clonidine 1. Hypertensive emergency systolic blood pressure of 220 in emergency room. 3. Labile hypertension 4. Severe generalized atherosclerosis 5. Dyslipidemia 6. Severe chronic lung disease with history of smoking 7. Compression fracture T7, [address] Ponce 8. Right carotid endarterectomy followed by vascular surgeon 9. Chronic anemia followed by Dr. Baker 10. Depression controlled with Lexapro PLAN: 1. Admit the patient to special care unit 2. Routine telemetry orders 3. Discontinue Levophed 4. Start the patient on Dopamine drip 5mcg per KG per minute, keep the systolic more than 100 5. The patient will undergo Artery blood flow studies. 6. The daughter is present in the room. 7. The patient is oriented to time, place and person. Discussed all the problems. At the present time the patient's condition it stable. Will follow. TIME SPENT: More than 75 minutes. ALAN
[2023-08-11] MEDS: TYLENOL PO ONE (20:37)
[2023-08-12 05:30] LABS: BASOPHILS % (AUTO) 0.4 % (0.0-3.0); EOSINOPHILS # (AUTO) 0.1 K/ul (0.0-0.7); EOSINOPHILS % (AUTO) 0.7 % (0.0-7.0); HEMATOCRIT 38.8 % (37.0-47.0); HEMOGLOBIN 12.3 g/dl (12.0-16.0); IMMATURE GRANULOCYTE % (AUTO) 0.4 % (0.0-5.0); LYMPHOCYTES # (AUTO) 1.9 K/uL (0.60-3.4); LYMPHOCYTES % (AUTO) 20.5 (10.0-50.0); MEAN CORPUSCULAR HEMOGLOBIN 28.9 pg (27.0-31.0); MEAN CORPUSCULAR HGB CONC 31.7 (31.8-35.4); MEAN CORPUSCULAR VOLUME 91.1 fl (81.0-99.0); MONOCYTES # (AUTO) 0.6 K/uL (0.4-2.0); MONOCYTES % (AUTO) 6.1 (0-10); NEUTROPHILS # (AUTO) 6.7 K/ul (2.0-6.9); NEUTROPHILS % (AUTO) 71.9 % (42.2-75.2); PLATELET COUNT 234 10^3/uL (140-440); RDW COEFFICIENT OF VARIATION 13.5 % (11.6-14.8); RED BLOOD COUNT 4.26 10^6/ul (4.20-5.40); WHITE BLOOD COUNT 9.35 K/ul (4.6-10.2)
[2023-08-12 05:41] LABS: ALANINE AMINOTRANSFERASE 14.9 U/L (0-35); ALBUMIN 4.23 g/dL (3.5-5.0); ALKALINE PHOSPHATASE 59.9 U/L (53-141); ASPARTATE AMINO TRANSFERASE 26.9 U/L (14-36); BILIRUBIN,TOTAL 1.53 mg/dL (0.2-1.3); BLOOD UREA NITROGEN 17.6 mg/dL (7-17); CALCIUM 9.71 mg/dL (8.4-10.2); CARBON DIOXIDE 27.3 mmol/L (22-30.0); CHLORIDE 104.4 mmol/L (98-107); CREATININE 0.68 mg/dL (0.60-1.30); POTASSIUM 4.07 mmol/L (3.5-5.1); SODIUM 136.9 mmol/L (134.5-145); TOTAL PROTEIN 7.08 g/dL (6.3-8.2)
[2023-08-12] MEDS: NORVASC PO ONE (12:39)
[2023-08-12] MEDS: ATIVAN PO SCH (20:30)
[2023-08-12] MEDS: NORVASC PO SCH (20:30)
[2023-08-13 05:47] LABS: BASOPHILS # (AUTO) 0.1 K/uL (0-0.2); BASOPHILS % (AUTO) 0.9 % (0.0-3.0); EOSINOPHILS # (AUTO) 0.3 K/ul (0.0-0.7); EOSINOPHILS % (AUTO) 3.7 % (0.0-7.0); HEMATOCRIT 39.8 % (37.0-47.0); HEMOGLOBIN 12.6 g/dl (12.0-16.0); IMMATURE GRANULOCYTE % (AUTO) 0.3 % (0.0-5.0); LYMPHOCYTES # (AUTO) 1.9 K/uL (0.60-3.4); LYMPHOCYTES % (AUTO) 26.5 (10.0-50.0); MEAN CORPUSCULAR HEMOGLOBIN 29.4 pg (27.0-31.0); MEAN CORPUSCULAR HGB CONC 31.7 (31.8-35.4); MEAN CORPUSCULAR VOLUME 92.8 fl (81.0-99.0); MONOCYTES # (AUTO) 0.5 K/uL (0.4-2.0); NEUTROPHILS # (AUTO) 4.3 K/ul (2.0-6.9); NEUTROPHILS % (AUTO) 61.6 % (42.2-75.2); PLATELET COUNT 217 10^3/uL (140-440); RDW COEFFICIENT OF VARIATION 13.8 % (11.6-14.8); RED BLOOD COUNT 4.29 10^6/ul (4.20-5.40); WHITE BLOOD COUNT 7.03 K/ul (4.6-10.2)
[2023-08-13 06:07] LABS: ALANINE AMINOTRANSFERASE 13.4 U/L (0-35); ALBUMIN 4.17 g/dL (3.5-5.0); ALKALINE PHOSPHATASE 58.9 U/L (53-141); ASPARTATE AMINO TRANSFERASE 21.9 U/L (14-36); BILIRUBIN,TOTAL 1.93 mg/dL (0.2-1.3); BLOOD UREA NITROGEN 21.4 mg/dL (7-17); CALCIUM 10.29 mg/dL (8.4-10.2); CARBON DIOXIDE 30.9 mmol/L (22-30.0); CHLORIDE 99.7 mmol/L (98-107); CREATININE 0.77 mg/dL (0.60-1.30); POTASSIUM 3.86 mmol/L (3.5-5.1); TOTAL PROTEIN 7.1 g/dL (6.3-8.2)
[2023-08-13] MEDS: NORVASC PO ONE (07:22)
[2023-08-13] MEDS: DESYREL PO SCH (20:40)
[2023-08-13] MEDS ORDERED: ATIVAN PO SCH (21:00)
[2023-08-14 06:30] LABS: BASOPHILS # (AUTO) 0.1 K/uL (0-0.2); BASOPHILS % (AUTO) 0.7 % (0.0-3.0); EOSINOPHILS # (AUTO) 0.1 K/ul (0.0-0.7); EOSINOPHILS % (AUTO) 1.6 % (0.0-7.0); HEMATOCRIT 39.4 % (37.0-47.0); HEMOGLOBIN 12.7 g/dl (12.0-16.0); IMMATURE GRANULOCYTE % (AUTO) 0.5 % (0.0-5.0); LYMPHOCYTES # (AUTO) 1.6 K/uL (0.60-3.4); LYMPHOCYTES % (AUTO) 19.7 (10.0-50.0); MEAN CORPUSCULAR HEMOGLOBIN 29.5 pg (27.0-31.0); MEAN CORPUSCULAR HGB CONC 32.2 (31.8-35.4); MEAN CORPUSCULAR VOLUME 91.6 fl (81.0-99.0); MONOCYTES # (AUTO) 0.7 K/uL (0.4-2.0); MONOCYTES % (AUTO) 8.5 (0-10); NEUTROPHILS # (AUTO) 5.7 K/ul (2.0-6.9); PLATELET COUNT 236 10^3/uL (140-440); WHITE BLOOD COUNT 8.21 K/ul (4.6-10.2)
[2023-08-14 06:36] LABS: ALANINE AMINOTRANSFERASE 15.3 U/L (0-35); ALBUMIN 4.22 g/dL (3.5-5.0); ALKALINE PHOSPHATASE 59.2 U/L (53-141); ASPARTATE AMINO TRANSFERASE 28.2 U/L (14-36); BILIRUBIN,TOTAL 2.22 mg/dL (0.2-1.3); BLOOD UREA NITROGEN 38.1 mg/dL (7-17); CALCIUM 9.65 mg/dL (8.4-10.2); CARBON DIOXIDE 27.3 mmol/L (22-30.0); CREATININE 1.82 mg/dL (0.60-1.30); GLUCOSE 127.7 mg/dL (74-106); SODIUM 136.2 mmol/L (134.5-145); TOTAL PROTEIN 7.15 g/dL (6.3-8.2)
[2023-08-14 06:38] LABS: POTASSIUM 4.44 mmol/L (3.5-5.1)
[2023-08-14 10:08] LABS: OCCULT BLOOD SAMPLE 1 NEGATIVE (NEGATIVE)
[2023-08-14 10:15] LABS: ALANINE AMINOTRANSFERASE 14.7 U/L (0-35); ALBUMIN 4.42 g/dL (3.5-5.0); ALKALINE PHOSPHATASE 61.3 U/L (53-141); ASPARTATE AMINO TRANSFERASE 23.7 U/L (14-36); BILIRUBIN,TOTAL 2.47 mg/dL (0.2-1.3); BLOOD UREA NITROGEN 40.3 mg/dL (7-17); CALCIUM 9.78 mg/dL (8.4-10.2); CARBON DIOXIDE 27.1 mmol/L (22-30.0); CHLORIDE 98.6 mmol/L (98-107); GLUCOSE 144.3 mg/dL (74-106); POTASSIUM 4.3 mmol/L (3.5-5.1); SODIUM 134.9 mmol/L (134.5-145); TOTAL PROTEIN 7.44 g/dL (6.3-8.2)
[2023-08-14] MEDS: DEXTROSE 5%-1/2NS IV SOLUTION 1,000 ML IV SCH (10:44)
[2023-08-14 14:55] LABS: OCCULT BLOOD SAMPLE 2 NEGATIVE (NEGATIVE); OCCULT BLOOD SAMPLE 3 NEGATIVE (NEGATIVE)
[2023-08-15 05:19] LABS: BASOPHILS % (AUTO) 0.6 % (0.0-3.0); EOSINOPHILS # (AUTO) 0.3 K/ul (0.0-0.7); EOSINOPHILS % (AUTO) 4.1 % (0.0-7.0); HEMATOCRIT 36.8 % (37.0-47.0); HEMOGLOBIN 11.8 g/dl (12.0-16.0); IMMATURE GRANULOCYTE % (AUTO) 0.3 % (0.0-5.0); LYMPHOCYTES # (AUTO) 1.6 K/uL (0.60-3.4); MEAN CORPUSCULAR HEMOGLOBIN 29.1 pg (27.0-31.0); MEAN CORPUSCULAR HGB CONC 32.1 (31.8-35.4); MEAN CORPUSCULAR VOLUME 90.6 fl (81.0-99.0); MONOCYTES # (AUTO) 0.6 K/uL (0.4-2.0); MONOCYTES % (AUTO) 7.9 (0-10); NEUTROPHILS # (AUTO) 4.5 K/ul (2.0-6.9); NEUTROPHILS % (AUTO) 64.1 % (42.2-75.2); PLATELET COUNT 216 10^3/uL (140-440); RDW COEFFICIENT OF VARIATION 13.8 % (11.6-14.8); RED BLOOD COUNT 4.06 10^6/ul (4.20-5.40); WHITE BLOOD COUNT 6.99 K/ul (4.6-10.2)
[2023-08-15 05:37] LABS: ALANINE AMINOTRANSFERASE 14.4 U/L (0-35); ALBUMIN 3.69 g/dL (3.5-5.0); ALKALINE PHOSPHATASE 54.6 U/L (53-141); ASPARTATE AMINO TRANSFERASE 30.4 U/L (14-36); BILIRUBIN,TOTAL 1.62 mg/dL (0.2-1.3); BLOOD UREA NITROGEN 39.8 mg/dL (7-17); CALCIUM 9.6 mg/dL (8.4-10.2); CARBON DIOXIDE 27.7 mmol/L (22-30.0); CHLORIDE 102.6 mmol/L (98-107); CREATININE 2.23 mg/dL (0.60-1.30); GLUCOSE 120.8 mg/dL (74-106); TOTAL PROTEIN 6.39 g/dL (6.3-8.2)
--- NOTE | 2023-08-15 08:23 | ECHO2D ---
Date of Exam: 08/12/2023 Ordering Physician: DR. RANDY GOEL Room #: SCU3 Reason for Echo: SOB, HTN M-Mode Normal Adult Results LV Dimensions Normal Adult Results AoV Opening excursions >1.6 >1.6 LVEDD-base- 3.5-5.8 3.6 Ao root dimensions 2.0-3.7 2.9 LVESD-base- 3.1-4.6 L. Atrium dimensions 1.9-3.8 4.1 Post. Wall thickness 0.8-1.1 1.3 IV septum (thickness) 0.7-1.2 1.3 Post. Wall excursion 0.72-1.3 NORMAL Septal motion NORMAL Systolic motion R. Ventricular cavity 1.5-2.0 3.9 LVEF 60% 61% Paradoxical septal wall motion NORMAL 2-D : 2-D M Mode Echocardiogram was performed using apical four chamber and left parasternal long and short axis views. Mitral, tricuspid and aortic valves appear to be normal. Contractility of the left ventricle seems to be normal, so is the cavity size. ENLARGED LEFT ATRIAL AND ENLARGED RIGHT VENTRICLE CAVITIES. Aortic root appears to be normal. There is no pericardial effusion. There is no thrombus noted in the left ventricle or left atrial cavity. M-MODE: MV: NORMAL AV: NORMAL TV: NORMAL PV: NORMAL CHAMBER SIZE: ENLARGED LEFT ATRIAL, RIGHT ATRIAL AND RIGHT VENTRICLE CAVITIES WALL MOTION: NORMAL PERICARDIUM: NORMAL INTERPRETATION: 1. LEFT VENTRICLE HYPERTROPHY WITH ENLARGED LEFT ATRIAL CAVITY 2. ENLARGED RIGHT ATRIAL AND RIGHT VENTRICLE CAVITIES 3. NORMAL LEFT VENTRICLE SIZE AND LEFT VENTRICLE CONTRACTILITY MTDD
[2023-08-15] MEDS: DEXTROSE 5%-1/2NS IV SOLUTION 1,000 ML IV SCH (08:26)
--- NOTE | 2023-08-15 09:09 | PCM.PROG ---
Attending Provider: ATTENDING PROVIDER: Dr. RANDY GOEL MD This patient is seen with Patty Paulino, Nurse Practitioner. DATE OF SERVICE: 08/15/23 SUBJECTIVE: This 78 year old /WHITE F was hospitalized 08/10/23. Blood pressure controlled this morning. Renal slightly function is slightly worse, Creatinine is 2.2 and BUN 39. Dyazide is on hold. She has renal ultrasound and Doppler ordered this morning. REVIEW OF SYSTEMS: CONSTITUTIONAL: No night sweats. No malaise, lethargy. No fever or chills. Weakness and fatigue. HEENT: Eyes: No visual changes. No eye pain. No eye discharge. ENT: No runny nose. No epistaxis. No sinus pain. No odynophagia. No congestion. RESPIRATORY: No cough, no congestion. No hemoptysis. Shortness of breath. CARDIOVASCULAR: No angina symptoms. No CHF symptoms. No atypical chest pain for CAD. No palpitations. No orthopnea.. GASTROINTESTINAL: No abdominal pain. No nausea or vomiting. No diarrhea or constipation. No hematemesis. No hematochezia. GENITOURINARY: No urgency. No frequency. No dysuria. No hematuria. No obstructive symptoms. No discharge. No pain. No significant abnormal bleeding. MUSCULOSKELETAL: No musculoskeletal pain; no joint swelling. NEUROLOGICAL: Awake, alert, oriented to time, place and person. No headache. No neck pain. No syncope. No seizures. No dizziness. PSYCHIATRIC: Not anxious. No depression. No suicidal thoughts. No homicidal thoughts. SKIN: No rash. No lesions. No wounds. ENDOCRINE: No unexplained weight loss. No weight gain. HEMATOLOGIC/LYMPHATIC: No anemia. No purpura. No petechiae. No prolonged or excessive bleeding. No palpable lymph nodes. PHYSICAL EXAMINATION: GENERAL: The patient is awake, alert and oriented, sitting in bed in no distress. VITAL SIGNS: Temperature 97.5 F, Pulse 74, Respiratory Rate 16, BP 120/72, Pulse Ox 97% HEENT: Head normocephalic, atraumatic. Eyes: Extraocular muscles are intact. Pupils are equal, round and reactive to light and accommodation. Ears: No lesions. Nose appeared normal. Throat: No exudate or erythema. NECK: Supple. No JVD, no carotid bruit. No lymphadenopathy or thyromegaly. LUNGS: Diminished breath sounds. Clear to auscultation. Percussion note normal. Chest symmetrical. HEART: S1, S2, no S3. No murmurs. No cyanosis or clubbing. No ascites. Pulses: Dorsalis pedis and posterior tibial pulses +1 to +2 both sides. ABDOMEN: Soft. Non-tender. Bowel sounds active. No CVA tenderness. No mass felt. EXTREMITIES: No edema. Full range of motion of all extremities, equal. NEUROLOGIC: No focal deficit. Cranial nerves II through XII are grossly intact. No headache. No double vision. SKIN: Not dry. Intact. Turgor-normal. LYMPHATIC: No palpable lymph nodes/no lymphedema. MUSCULOSKELETAL: Normal joints with no swelling. Muscle tone is normal. LAB REVIEW: 08/15/23 05:00 08/15/23 05:00 08/15/23 05:00: WBC 6.99, RBC 4.06 L, Hgb 11.8 L, Hct 36.8 L, MCV 90.6, MCH 29.1, MCHC 32.1, RDW Coeff of Cristiane 13.8, Plt Count 216, Immature Gran % (Auto) 0.3, Neut % (Auto) 64.1, Lymph % (Auto) 23.0, Greenlee % (Auto) 7.9, Eos % (Auto) 4.1, Baso % (Auto) 0.6, Neut # (Auto) 4.5, Lymph # (Auto) 1.6, Greenlee # (Auto) 0.6, Eos # (Auto) 0.3, Baso # (Auto) 0.0, Immature Gran # (Auto) 0.0, Sodium 135.0, Potassium 4.00, Chloride 102.6, Carbon Dioxide 27.7, Anion Gap 8.70, BUN 39.8 H, Creatinine 2.23 H, Estimated GFR (MDRD) 21.00, BUN/Creatinine Ratio 17.84, Glucose 120.8 H, Calcium 9.60, Total Bilirubin 1.62 H, AST 30.4, ALT 14.4, Alkaline Phosphatase 54.6, Total Protein 6.39, Albumin 3.69, Globulin 2.70, Albumin/Globulin Ratio 1.36 08/14/23 10:00: Sodium 134.9, Potassium 4.30, Chloride 98.6, Carbon Dioxide 27.1, Anion Gap 13.50, BUN 40.3 H, Creatinine 2.00 H, Estimated GFR (MDRD) 24.00, BUN/Creatinine Ratio 20.15, Glucose 144.3 H, Calcium 9.78, Total Bilirubin 2.47 H, AST 23.7, ALT 14.7, Alkaline Phosphatase 61.3, Total Protein 7.44, Albumin 4.42, Globulin 3.02, Albumin/Globulin Ratio 1.46 08/14/23 09:40: Stl Occult Blood (IFOB) Negative, Stool Occult Blood #2 Negative, Stool Occult Blood #3 Negative ASSESSMENT: Please see below. 1. Labile Hypertension 2. Acute renal failure 3. Carotid stenosis with recent endarterectomy 4. Former smoker 5. Dyslipidemia PLAN: 1. Decrease fluids at 83cc an hour 2. Continue to hold Dyazide and Losartan 3. Will do renal diagnostics this morning. Plan and coordination of the patient's care discussed in the presence of [employer] Driver and nurse. EDUCATION: CONDITION: SCRIBED BY: Todd ROQUE scribed while in presence of service performed by Patty Paulino APRN on 08/15/23 ([id number])
[2023-08-15] MEDS: PERCOCET 5-325 PO PRN (09:39)
--- NOTE | 2023-08-15 12:46 | US ---
EXAM: ULTRASOUND RETROPERITONEAL COMPLETE. HISTORY: Abnormal renal function tests. COMPARISON: 09/28/2017. CT 07/25/2020. TECHNIQUE: Multiple brito scale and color Doppler images. FINDINGS: Right kidney measures 10 x 3.8 x 5.1 cm. The left kidney measures 11 x 4.9 x 4.4 cm. Cor tical echogenicity in both kidneys is normal. There is no hydronephrosis. Urinary bladder is unremarkable. IMPRESSION: No acute sonographic abnormality of the kidneys or bladder.
--- NOTE | 2023-08-15 12:52 | US ---
EXAM: RENAL ARTERY DOPPLER ULTRASOUND. HISTORY: Elevated BUN and creatinine COMPARISON: None TECHNIQUE: Renal artery Doppler ultrasound was performed. Greyscale, color doppler, spectral dopple r imaging performed. FINDINGS: The aorta and inferior vena cava are patent. The aorta measures 1.7 cm at the level of the renal art eries. Peak systolic velocity in the aorta is 0.6 cm/sec. Areas of artifact limit evaluation of the kidneys The right kidney measures 10.1 cm in length. No hydronephrosis. Peak systolic velocities in the felipe n renal artery at the ostium, midportion, and renal hilum are 0.5, 0.4, and 0.3 cm/sec respectively. These values are not elevated. Doppler wave forms are normal. The arcuate artery resistive index m easures 0.79. This value is elevated. Right renal vein is patent. The left kidney measures 11.0 cm in length. No hydronephrosis. Peak systolic velocities in the main renal artery at the ostium, midportion, and renal hilum are 0.5 , 0.6 , and 1.0 cm/sec respectively. These values are not elevated. Doppler wave forms are normal. The arcuate artery resistive index measures 0.83. This value is elevated. Left renal vein is patent. Visualized liver is echogenic IMPRESSION: 1. No evidence for renal artery stenosis 2. Elevated resistive indices bilaterally, nonspecific. 3. Echogenic liver may relate to hepatic steatosis.
--- NOTE | 2023-08-15 13:48 | PN ---
DATE OF SERVICE: 08/11/23 SUBJECTIVE: 78 year old white female hospitalized with uncontrolled hypertension with hypertensive urgency. She was treated in the emergency room and give 0.2mg of Clonidine, reacted with hypotension. She was Levophed which later on switched to Dopamine drip. The patient's blood pressure is now 120-125 systolic with Dopamine. REVIEW OF SYSTEMS: CONSTITUTIONAL: No night sweats. No fatigue, malaise, lethargy. No fever or chills. HEENT: Eyes: No visual changes. No eye pain. No eye discharge. ENT: No runny nose. No epistaxis. No sinus pain. No sore throat. No odynophagia. No congestion. RESPIRATORY: No cough, no congestion. No hemoptysis. No shortness of breath. CARDIOVASCULAR: No angina symptoms. No CHF symptoms. No atypical chest pain for CAD. No palpitations. No PND. No orthopnea. GASTROINTESTINAL: No abdominal pain. No nausea or vomiting. No diarrhea or constipation. No hematemesis. No hematochezia. GENITOURINARY: No urgency. No frequency. No dysuria. No hematuria. No obstructive symptoms. No discharge. No pain. No significant abnormal bleeding. MUSCULOSKELETAL: No musculoskeletal pain; no joint swelling. NEUROLOGICAL: No headache. No neck pain. No syncope. No seizures. No dizziness. PSYCHIATRIC: Not anxious. No depression. No suicidal thoughts. No homicidal thoughts. SKIN: No rash. No lesions. No wounds. ENDOCRINE: No unexplained weight loss. No weight gain. HEMATOLOGIC/LYMPHATIC: No anemia. No purpura. No petechiae. No prolonged or excessive bleeding. No palpable lymph nodes. PHYSICAL EXAMINATION: VITAL SIGNS: Temperature 97.9, pulse 63, respiratory rate 18, blood pressure 140/50 and pulse ox 99% on 2 liters. HEENT: Head normocephalic, atraumatic. Eyes: Extraocular muscles are intact. Pupils are equal, round and reactive to light and accommodation. Ears: No lesions. Nose appeared normal. Throat: No exudate or erythema. NECK: Supple. No JVD, no carotid bruit. No lymphadenopathy or thyromegaly. LUNGS: Clear to auscultation. Percussion note normal. Chest symmetrical. HEART: S1, S2, no S3. No murmurs. No cyanosis or clubbing. No ascites. Pulses: Dorsalis pedis and posterior tibial pulses +1 to +2 bilaterally. ABDOMEN: Soft. Nontender. Bowel sounds active. No CVA tenderness. No mass felt. EXTREMITIES: No edema. Full range of motion of all extremities, equal. NEUROLOGIC: No focal deficit. Cranial nerves II through XII are grossly intact. No headache. No double vision. SKIN: Not dry. Intact. Turgor - normal. LYMPHATIC: No palpable lymph nodes/no lymphedema. MUSCULOSKELETAL: Normal joints with no swelling. Muscle tone is normal. LABS: Hgb 11.8, hct 37, WBC 6,500 normal differential, creatinine 0.6, BUN 14, potassium 3.6 ASSESSMENT: 1. Hypotension, medication induced seems to be responding to vasopressor 2. History of Hypertension 3. Mild chronic bronchitis PLAN: 1. Continue Dopamine for systolic blood pressure 80-90. Dopamine explained to the nursing staff. 2. 1/2cc Decadron for Chronic bronchitis otherwise other medications for blood pressure for now 3. Kidney functions are normal. TIME SPENT: More than 35 minutes. Plan and coordination of the patient's care discussed in the presence of nurse. ALAN
--- NOTE | 2023-08-15 14:02 | PN ---
DATE OF SERVICE: 08/12/23 SUBJECTIVE: The patient is doing well and feeling good. Appetite has improved. Advised to drink a lot of fluids. Regular diet. As usual the is in the room. Discussed all the reports. The patient's cardiovascular system all negative. REVIEW OF SYSTEMS: CONSTITUTIONAL: No night sweats. No fatigue, malaise, lethargy. No fever or chills. HEENT: Eyes: No visual changes. No eye pain. No eye discharge. ENT: No runny nose. No epistaxis. No sinus pain. No sore throat. No odynophagia. No congestion. RESPIRATORY: No cough, no congestion. No hemoptysis. No shortness of breath. CARDIOVASCULAR: No angina symptoms. No CHF symptoms. No atypical chest pain for CAD. No palpitations. No PND. No orthopnea. GASTROINTESTINAL: No abdominal pain. No nausea or vomiting. No diarrhea or constipation. No hematemesis. No hematochezia. GENITOURINARY: No urgency. No frequency. No dysuria. No hematuria. No obstructive symptoms. No discharge. No pain. No significant abnormal bleeding. MUSCULOSKELETAL: No musculoskeletal pain; no joint swelling. NEUROLOGICAL: No headache. No neck pain. No syncope. No seizures. No dizziness. PSYCHIATRIC: Not anxious. No depression. No suicidal thoughts. No homicidal thoughts. SKIN: No rash. No lesions. No wounds. ENDOCRINE: No unexplained weight loss. No weight gain. HEMATOLOGIC/LYMPHATIC: No anemia. No purpura. No petechiae. No prolonged or excessive bleeding. No palpable lymph nodes. PHYSICAL EXAMINATION: VITAL SIGNS: HEENT: Head normocephalic, atraumatic. Eyes: Extraocular muscles are intact. Pupils are equal, round and reactive to light and accommodation. Ears: No lesions. Nose appeared normal. Throat: No exudate or erythema. NECK: Supple. No JVD, no carotid bruit. No lymphadenopathy or thyromegaly. LUNGS: Clear to auscultation. Percussion note normal. Chest symmetrical. HEART: S1, S2, no S3. No murmurs. No cyanosis or clubbing. No ascites. Pulses: Dorsalis pedis and posterior tibial pulses +1 to +2 bilaterally. ABDOMEN: Soft. Nontender. Bowel sounds active. No CVA tenderness. No mass felt. EXTREMITIES: No edema. Full range of motion of all extremities, equal. NEUROLOGIC: No focal deficit. Cranial nerves II through XII are grossly intact. No headache. No double vision. SKIN: Not dry. Intact. Turgor - normal. LYMPHATIC: No palpable lymph nodes/no lymphedema. MUSCULOSKELETAL: Normal joints with no swelling. Muscle tone is normal. LABS: hgb 12.3, hct 38, WBC 9,300 normal differential, creatinine 0.6, BUN 17, potassium 4. ASSESSMENT: 1. Hypotension seems to have resolved, the patient is off Dopamine drip. Her blood pressure systolic 120-140. Systolic goal will be around 150. PLAN: 1. Continue the same medications 2. We may use Losartan and Norvasc and discontinue all the other medication as before. 3. Continue to monitor telemetry CARDIOVASCULAR STATUS: Stable TIME SPENT: More than 35 minutes. Plan and coordination of the patient's care discussed in the presence of nurse. ALAN
--- NOTE | 2023-08-15 14:18 | PN ---
DATE OF SERVICE: 08/13/23 SUBJECTIVE: 78 year old white female hospitalized with hypotension created with medication. She was in the ER with severe hypertension. In any case the patient's blood pressure is stable now with Losartan and Norvasc. Condition is improving. Family is sitting in the room, discussed all the problems. REVIEW OF SYSTEMS: CONSTITUTIONAL: No night sweats. No fatigue, malaise, lethargy. No fever or chills. HEENT: Eyes: No visual changes. No eye pain. No eye discharge. ENT: No runny nose. No epistaxis. No sinus pain. No sore throat. No odynophagia. No congestion. RESPIRATORY: No cough, no congestion. No hemoptysis. No shortness of breath. CARDIOVASCULAR: No angina symptoms. No CHF symptoms. No atypical chest pain for CAD. No palpitations. No PND. No orthopnea. GASTROINTESTINAL: No abdominal pain. No nausea or vomiting. No diarrhea or constipation. No hematemesis. No hematochezia. GENITOURINARY: No urgency. No frequency. No dysuria. No hematuria. No obstructive symptoms. No discharge. No pain. No significant abnormal bleeding. MUSCULOSKELETAL: No musculoskeletal pain; no joint swelling. NEUROLOGICAL: No headache. No neck pain. No syncope. No seizures. No dizziness. Insomnia. PSYCHIATRIC: Not anxious. No depression. No suicidal thoughts. No homicidal thoughts. SKIN: No rash. No lesions. No wounds. ENDOCRINE: No unexplained weight loss. No weight gain. HEMATOLOGIC/LYMPHATIC: No anemia. No purpura. No petechiae. No prolonged or excessive bleeding. No palpable lymph nodes. PHYSICAL EXAMINATION: VITAL SIGNS: Temperature 97.6, pulse 56, respiratory rate 12, blood pressure 134/50 and pulse ox 98% on 2 liters. HEENT: Head normocephalic, atraumatic. Eyes: Extraocular muscles are intact. Pupils are equal, round and reactive to light and accommodation. Ears: No lesions. Nose appeared normal. Throat: No exudate or erythema. NECK: Supple. No JVD, no carotid bruit. No lymphadenopathy or thyromegaly. LUNGS: Decreased breath sounds but clear to auscultation. Percussion note normal. Chest symmetrical. HEART: S1, S2, no S3. No murmurs. No cyanosis or clubbing. No ascites. Pulses: Dorsalis pedis and posterior tibial pulses +1 to +2 bilaterally. ABDOMEN: Soft. Nontender. Bowel sounds active. No CVA tenderness. No mass felt. EXTREMITIES: No edema. Full range of motion of all extremities, equal. NEUROLOGIC: No focal deficit. Cranial nerves II through XII are grossly intact. No headache. No double vision. SKIN: Not dry. Intact. Turgor - normal. LYMPHATIC: No palpable lymph nodes/no lymphedema. MUSCULOSKELETAL: Normal joints with no swelling. Muscle tone is normal. LABS: Creatinine 0.7, BUN 21, potassium 3.8. ASSESSMENT: 1. Hypotension, resolved 2. Hypertension, uncontrol PLAN: 1. Continue Losartan and Amlodipine 2.5mg twice a day 2. Discontinue Lorazepam 3. Trazodone 15mg PO at night to be tried for insomnia 4. The patient at night drops oxygen saturation to 87%-86%. So hypoxemia with possibility of sleep apnea on home oxygen 2-3 liters. Discussed with the patient and she is agreeable. CONDITION: Stable. TIME SPENT: More than 35 minutes. Plan and coordination of the patient's care discussed in the presence of nurse. ALAN
--- NOTE | 2023-08-15 14:39 | PN ---
DATE OF SERVICE: 08/14/23 SUBJECTIVE: 78 year old white female hospitalized with hypertension which was initially treated with Levophed then Dopamine. The patient's kidney functions were stable, so far but now they are showing creatinine of 2 with BUN of 40. After talking to the nursing staff, yesterday the patient did not have any probably any oral intake. She is very poor about having fluid intake for last couple days her intake is acceptable according to the nursing staff. There is no nausea and no vomiting. The patient had black tarry stool but Coag negative. The patient is on iron pill twice a day. REVIEW OF SYSTEMS: CONSTITUTIONAL: No night sweats. No fatigue, malaise, lethargy. No fever or chills. Mild weakness. HEENT: Eyes: No visual changes. No eye pain. No eye discharge. ENT: No runny nose. No epistaxis. No sinus pain. No sore throat. No odynophagia. No congestion. RESPIRATORY: No cough, no congestion. No hemoptysis. No shortness of breath. CARDIOVASCULAR: No angina symptoms. No CHF symptoms. No atypical chest pain for CAD. No palpitations. No PND. No orthopnea. GASTROINTESTINAL: No abdominal pain. No nausea or vomiting. No diarrhea or constipation. No hematemesis. No hematochezia. GENITOURINARY: No urgency. No frequency. No dysuria. No hematuria. No obstructive symptoms. No discharge. No pain. No significant abnormal bleeding. MUSCULOSKELETAL: No musculoskeletal pain; no joint swelling. NEUROLOGICAL: No headache. No neck pain. No syncope. No seizures. No dizziness. PSYCHIATRIC: Not anxious. No depression. No suicidal thoughts. No homicidal thoughts. SKIN: No rash. No lesions. No wounds. ENDOCRINE: No unexplained weight loss. No weight gain. HEMATOLOGIC/LYMPHATIC: No anemia. No purpura. No petechiae. No prolonged or excessive bleeding. No palpable lymph nodes. PHYSICAL EXAMINATION: VITAL SIGNS: Temperature 72, respiratory rate 16, blood pressure 127/62 and pulse ox 96% on 2 liters. HEENT: Head normocephalic, atraumatic. Eyes: Extraocular muscles are intact. Pupils are equal, round and reactive to light and accommodation. Ears: No lesions. Nose appeared normal. Throat: No exudate or erythema. NECK: Supple. No JVD, no carotid bruit. No lymphadenopathy or thyromegaly. LUNGS: Decreased breath sounds but clear to auscultation. Percussion note normal. Chest symmetrical. HEART: S1, S2, no S3. No murmurs. No cyanosis or clubbing. No ascites. Pulses: Dorsalis pedis and posterior tibial pulses +1 to +2 bilaterally. ABDOMEN: Soft. Nontender. Bowel sounds active. No CVA tenderness. No mass felt. EXTREMITIES: No edema. Full range of motion of all extremities, equal. NEUROLOGIC: No focal deficit. Cranial nerves II through XII are grossly intact. No headache. No double vision. SKIN: Intact. Turgor - normal. Likely skin seems to be somewhat dry. LYMPHATIC: No palpable lymph nodes/no lymphedema. MUSCULOSKELETAL: Normal joints with no swelling. Muscle tone is normal. LABS: Creatinine 2, BUN 40 which has double in 24 hours. ASSESSMENT: 1. Renal azotemia 2. Hypotension, resolved 3. Severe peripheral arterial disease, status post carotid endarterectomy left side a month ago 4. History of hypertension 5. Dyslipidemia PLAN: 1. Give 1000cc D5 1/2 normal saline, 125cc per hour for 3-4 hours and after that 100cc per hour, watch for fluid overload 2. Encouraged the patient to drink fluids 3. Hold her Losartan for now 4. No diuretic that needs to be held, discussed with nursing staff. The patient is going to be on Amlodipine for now 5. Monitor telemetry, labs with CMP CONDITION: Stable. TIME SPENT: More than 35 minutes. Plan and coordination of the patient's care discussed in the presence of nurse. ALAN
--- NOTE | 2023-08-15 14:44 | PN ---
DATE OF SERVICE: 08/15/23 SUBJECTIVE: Th patient was seen and examined with the Nurse Practitioner. The patient's condition is stable. Her kidney function has become somewhat more abnormal but the patient's overall condition is stable. We will watch the patient for fluid overload. She will undergo renal flow studies. The patient has history of renal stenosis. Cardiovascular status for now is stable. The patient had echocardiogram done day before yesterday which showed normal LV contractility with LVH, enlarged LA cavity. CONDITION: OTHERWISE STABLE The patient is DNR TIME SPENT: More than 35 minutes. Plan and coordination of the patient's care discussed in the presence of nurse. ALAN
[2023-08-16 05:10] LABS: BASOPHILS # (AUTO) 0.1 K/uL (0-0.2); BASOPHILS % (AUTO) 0.9 % (0.0-3.0); EOSINOPHILS # (AUTO) 0.4 K/ul (0.0-0.7); EOSINOPHILS % (AUTO) 5.3 % (0.0-7.0); HEMATOCRIT 37.5 % (37.0-47.0); HEMOGLOBIN 11.9 g/dl (12.0-16.0); IMMATURE GRANULOCYTE % (AUTO) 0.3 % (0.0-5.0); LYMPHOCYTES # (AUTO) 1.5 K/uL (0.60-3.4); LYMPHOCYTES % (AUTO) 22.5 (10.0-50.0); MEAN CORPUSCULAR HEMOGLOBIN 29.2 pg (27.0-31.0); MEAN CORPUSCULAR HGB CONC 31.7 (31.8-35.4); MEAN CORPUSCULAR VOLUME 92.1 fl (81.0-99.0); MONOCYTES # (AUTO) 0.5 K/uL (0.4-2.0); MONOCYTES % (AUTO) 7.1 (0-10); NEUTROPHILS # (AUTO) 4.2 K/ul (2.0-6.9); NEUTROPHILS % (AUTO) 63.9 % (42.2-75.2); PLATELET COUNT 208 10^3/uL (140-440); RDW COEFFICIENT OF VARIATION 13.8 % (11.6-14.8); RED BLOOD COUNT 4.07 10^6/ul (4.20-5.40); WHITE BLOOD COUNT 6.59 K/ul (4.6-10.2)
[2023-08-16 05:33] LABS: ALANINE AMINOTRANSFERASE 15.1 U/L (0-35); ALBUMIN 3.9 g/dL (3.5-5.0); ALKALINE PHOSPHATASE 54.4 U/L (53-141); BILIRUBIN,TOTAL 1.89 mg/dL (0.2-1.3); BLOOD UREA NITROGEN 35.9 mg/dL (7-17); CALCIUM 10.29 mg/dL (8.4-10.2); CARBON DIOXIDE 29.5 mmol/L (22-30.0); CHLORIDE 102.3 mmol/L (98-107); CREATININE 1.98 mg/dL (0.60-1.30); GLUCOSE 120.6 mg/dL (74-106); SODIUM 136.6 mmol/L (134.5-145); TOTAL PROTEIN 6.64 g/dL (6.3-8.2)
[2023-08-16 05:34] LABS: POTASSIUM 4.18 mmol/L (3.5-5.1)
--- NOTE | 2023-08-16 08:52 | PCM.PROG ---
Attending Provider: ATTENDING PROVIDER: Dr. RANDY GOEL MD This patient is seen with Patty Paulino, Nurse Practitioner. DATE OF SERVICE: 08/16/23 SUBJECTIVE: This 78 year old /WHITE F was hospitalized 08/10/23. BUN and creatinine slight improved today. Blood pressure has improved and has been controlled. Eating well. REVIEW OF SYSTEMS: CONSTITUTIONAL: No night sweats. No fatigue, malaise, lethargy. No fever or chills. Weakness. HEENT: Eyes: No visual changes. No eye pain. No eye discharge. ENT: No runny nose. No epistaxis. No sinus pain. No odynophagia. No congestion. RESPIRATORY: No cough, no congestion. No hemoptysis. Shortness of breath. CARDIOVASCULAR: No angina symptoms. No CHF symptoms. No atypical chest pain for CAD. No palpitations. No orthopnea.. GASTROINTESTINAL: No abdominal pain. No nausea or vomiting. No diarrhea or constipation. No hematemesis. No hematochezia. GENITOURINARY: No urgency. No frequency. No dysuria. No hematuria. No obstructive symptoms. No discharge. No pain. No significant abnormal bleeding. MUSCULOSKELETAL: No musculoskeletal pain; no joint swelling. NEUROLOGICAL: Awake, alert, oriented to time, place and person. No headache. No neck pain. No syncope. No seizures. No dizziness. PSYCHIATRIC: Not anxious. No depression. No suicidal thoughts. No homicidal thoughts. SKIN: No rash. No lesions. No wounds. ENDOCRINE: No unexplained weight loss. No weight gain. HEMATOLOGIC/LYMPHATIC: No anemia. No purpura. No petechiae. No prolonged or excessive bleeding. No palpable lymph nodes. PHYSICAL EXAMINATION: GENERAL: The patient is awake, alert and oriented, sitting in bed in no distress. VITAL SIGNS: Temperature 96.7 F, Pulse 76, Respiratory Rate 17, BP 101/59, Pulse Ox 92% HEENT: Head normocephalic, atraumatic. Eyes: Extraocular muscles are intact. Pupils are equal, round and reactive to light and accommodation. Ears: No lesions. Nose appeared normal. Throat: No exudate or erythema. NECK: Supple. No JVD, no carotid bruit. No lymphadenopathy or thyromegaly. LUNGS: Diminished breath sounds. Clear to auscultation. Percussion note normal. Chest symmetrical. HEART: S1, S2, no S3. No murmurs. No cyanosis or clubbing. No ascites. Pulses: Dorsalis pedis and posterior tibial pulses +1 to +2 both sides. ABDOMEN: Soft. Non-tender. Bowel sounds active. No CVA tenderness. No mass felt. EXTREMITIES: No edema. Full range of motion of all extremities, equal. NEUROLOGIC: No focal deficit. Cranial nerves II through XII are grossly intact. No headache. No double vision. SKIN: Not dry. Intact. Turgor-normal. LYMPHATIC: No palpable lymph nodes/no lymphedema. MUSCULOSKELETAL: Normal joints with no swelling. Muscle tone is normal. LAB REVIEW: 08/16/23 05:06 08/16/23 05:06 08/16/23 05:06: WBC 6.59, RBC 4.07 L, Hgb 11.9 L, Hct 37.5, MCV 92.1, MCH 29.2, MCHC 31.7 L, RDW Coeff of Cristiane 13.8, Plt Count 208, Immature Gran % (Auto) 0.3, Neut % (Auto) 63.9, Lymph % (Auto) 22.5, [place] % (Auto) 7.1, Eos % (Auto) 5.3, Baso % (Auto) 0.9, Neut # (Auto) 4.2, Lymph # (Auto) 1.5, [place] # (Auto) 0.5, Eos # (Auto) 0.4, Baso # (Auto) 0.1, Immature Gran # (Auto) 0.0, Sodium 136.6, Potassium 4.18, Chloride 102.3, Carbon Dioxide 29.5, Anion Gap 8.98, BUN 35.9 H, Creatinine 1.98 H, Estimated GFR (MDRD) 24.00, BUN/Creatinine Ratio 18.13, G lucose 120.6 H, Calcium 10.29 H, Total Bilirubin 1.89 H, AST 25.0, ALT 15.1, Alkaline Phosphatase 54.4, Total Protein 6.64, Albumin 3.90, Globulin 2.74, Albumin/Globulin Ratio 1.42 ASSESSMENT: Please see below. 1. Acute renal failure 2. Uncontrolled hypertension 3. Severe PAD 4. Dyslipidemia refuses treatment. PLAN: 1. Will discontinue IV fluids after this bag 2. Continue to monitor blood pressure Plan and coordination of the patient's care discussed in the presence of Senior Web Analyst and nurse. SCRIBED BY: JUAN J GRA[employer] scribed while in presence of service performed by Patty Paulino APRN on 08/16/23 ([id number])
[2023-08-16] MEDS: DEXTROSE 5%-1/2NS IV SOLUTION 1,000 ML IV SCH (13:46)
[2023-08-17 05:14] LABS: BASOPHILS % (AUTO) 0.6 % (0.0-3.0); EOSINOPHILS # (AUTO) 0.3 K/ul (0.0-0.7); EOSINOPHILS % (AUTO) 4.5 % (0.0-7.0); HEMATOCRIT 35.6 % (37.0-47.0); HEMOGLOBIN 11.5 g/dl (12.0-16.0); IMMATURE GRANULOCYTE % (AUTO) 0.3 % (0.0-5.0); LYMPHOCYTES # (AUTO) 1.7 K/uL (0.60-3.4); LYMPHOCYTES % (AUTO) 24.8 (10.0-50.0); MEAN CORPUSCULAR HEMOGLOBIN 29.4 pg (27.0-31.0); MEAN CORPUSCULAR HGB CONC 32.3 (31.8-35.4); MONOCYTES # (AUTO) 0.5 K/uL (0.4-2.0); MONOCYTES % (AUTO) 7.2 (0-10); NEUTROPHILS # (AUTO) 4.2 K/ul (2.0-6.9); NEUTROPHILS % (AUTO) 62.6 % (42.2-75.2); PLATELET COUNT 206 10^3/uL (140-440); RDW COEFFICIENT OF VARIATION 13.6 % (11.6-14.8); RED BLOOD COUNT 3.91 10^6/ul (4.20-5.40); WHITE BLOOD COUNT 6.69 K/ul (4.6-10.2)
[2023-08-17 05:32] LABS: ALANINE AMINOTRANSFERASE 14.8 U/L (0-35); ALBUMIN 3.92 g/dL (3.5-5.0); ALKALINE PHOSPHATASE 55.7 U/L (53-141); ASPARTATE AMINO TRANSFERASE 30.3 U/L (14-36); BILIRUBIN,TOTAL 1.54 mg/dL (0.2-1.3); BLOOD UREA NITROGEN 27.5 mg/dL (7-17); CALCIUM 10.97 mg/dL (8.4-10.2); CARBON DIOXIDE 32.4 mmol/L (22-30.0); CHLORIDE 101.6 mmol/L (98-107); CREATININE 1.5 mg/dL (0.60-1.30); GLUCOSE 122.2 mg/dL (74-106); POTASSIUM 4.1 mmol/L (3.5-5.1); SODIUM 136.1 mmol/L (134.5-145); TOTAL PROTEIN 6.68 g/dL (6.3-8.2)
--- NOTE | 2023-08-17 13:00 | PN ---
DATE OF SERVICE: 08/16/23 SUBJECTIVE: The patient was seen and examined with the Nurse Practitioner. The patient's kidney functions are improving. She is feeling somewhat better, she is off all of the antihypertensive medications. We will continue the IV fluids. Cardiovascular status is stable. The is present in the room, all the diagnosis discussed. The patient's daughter had put patient on some form of diet. She has lost 20 pounds prior to hospitalization. When the patient was discharged the patient was advised not to be any diet, regular meals next three weeks. TIME SPENT: More than 35 minutes. Plan and coordination of the patient's care discussed in the presence of nurse. ALAN
[2023-08-17] MEDS: DUONEB NEB PRN (13:08)
--- NOTE | 2023-08-17 13:21 | PN ---
DATE OF SERVICE: 08/17/23 SUBJECTIVE: 78 year old white female hospitalized with uncontrolled hypertension. Was given Clonidine 0.2mg in the emergency room, hypotension which lasted nearly couple of days. She was treated initially with Levophed and then Dopamine drip was used which last nearly 36 hours. The patient has been off since then. Her kidney started becoming abnormal 2-3 days ago. Now this morning creatinine is 1.5, BUN 27 which is a lot of improvement. The patient is feeling better. Blood pressure systolic was 70-80 in the morning and now it is up to 110. She is off all antihypertensive medications. REVIEW OF SYSTEMS: CONSTITUTIONAL: No night sweats. No fatigue, malaise, lethargy. No fever or chills. Mildly weak. HEENT: Eyes: No visual changes. No eye pain. No eye discharge. ENT: No runny nose. No epistaxis. No sinus pain. No sore throat. No odynophagia. No congestion. RESPIRATORY: No cough, no congestion. No hemoptysis. No shortness of breath. CARDIOVASCULAR: No angina symptoms. No CHF symptoms. No atypical chest pain for CAD. No palpitations. No PND. No orthopnea. GASTROINTESTINAL: No abdominal pain. No nausea or vomiting. No diarrhea or constipation. No hematemesis. No hematochezia. Appetite not up [place]. GENITOURINARY: No urgency. No frequency. No dysuria. No hematuria. No obstructive symptoms. No discharge. No pain. No significant abnormal bleeding. MUSCULOSKELETAL: No musculoskeletal pain; no joint swelling. NEUROLOGICAL: No headache. No neck pain. No syncope. No seizures. No dizziness. PSYCHIATRIC: Not anxious. No depression. No suicidal thoughts. No homicidal thoughts. SKIN: No rash. No lesions. No wounds. ENDOCRINE: No unexplained weight loss. No weight gain. HEMATOLOGIC/LYMPHATIC: No anemia. No purpura. No petechiae. No prolonged or excessive bleeding. No palpable lymph nodes. PHYSICAL EXAMINATION: VITAL SIGNS: Temperature 97.6, pulse 80, respiratory rate 170, pulse ox 92% on 2 liters. HEENT: Head normocephalic, atraumatic. Eyes: Extraocular muscles are intact. Pupils are equal, round and reactive to light and accommodation. Ears: No lesions. Nose appeared normal. Throat: No exudate or erythema. NECK: Supple. No JVD, no carotid bruit. No lymphadenopathy or thyromegaly. LUNGS: Decreased breath sounds but clear to auscultation. Percussion note normal. Chest symmetrical. HEART: S1, S2, no S3. No murmurs. No cyanosis or clubbing. No ascites. Pulses: Dorsalis pedis and posterior tibial pulses +1 to +2 bilaterally. ABDOMEN: Soft. Nontender. Bowel sounds active. No CVA tenderness. No mass felt. EXTREMITIES: No edema. Full range of motion of all extremities, equal. NEUROLOGIC: No focal deficit. Cranial nerves II through XII are grossly intact. No headache. No double vision. SKIN: Not dry. Intact. Turgor - normal. LYMPHATIC: No palpable lymph nodes/no lymphedema. MUSCULOSKELETAL: Normal joints with no swelling. Muscle tone is normal. LABS: Hgb 11.5, hct 35, WBC 6,600 normal differential, creatinine 1.5, BUN 27 ASSESSMENT: 1. Acute tubular necrosis seems to be resolving 2. Hypotension, medication induced seems to be resolving PLAN: 1. Restart all antihypertensive medication except of Dyazide and Losartan this morning 2. Discontinue IV fluids 3. The patient is advised to be up and about, advised to drink a lot of fluids CONDITION: Stable. TIME SPENT: More than 35 minutes. Plan and coordination of the patient's care discussed in the presence of nurse. ALAN
[2023-08-18 05:28] LABS: BASOPHILS # (AUTO) 0.1 K/uL (0-0.2); EOSINOPHILS # (AUTO) 0.2 K/ul (0.0-0.7); EOSINOPHILS % (AUTO) 2.6 % (0.0-7.0); HEMATOCRIT 35.5 % (37.0-47.0); HEMOGLOBIN 11.2 g/dl (12.0-16.0); IMMATURE GRANULOCYTE % (AUTO) 0.3 % (0.0-5.0); LYMPHOCYTES # (AUTO) 1.8 K/uL (0.60-3.4); LYMPHOCYTES % (AUTO) 24.7 (10.0-50.0); MEAN CORPUSCULAR HEMOGLOBIN 28.6 pg (27.0-31.0); MEAN CORPUSCULAR HGB CONC 31.5 (31.8-35.4); MEAN CORPUSCULAR VOLUME 90.8 fl (81.0-99.0); MONOCYTES # (AUTO) 0.5 K/uL (0.4-2.0); MONOCYTES % (AUTO) 7.1 (0-10); NEUTROPHILS # (AUTO) 4.7 K/ul (2.0-6.9); NEUTROPHILS % (AUTO) 64.3 % (42.2-75.2); PLATELET COUNT 237 10^3/uL (140-440); RDW COEFFICIENT OF VARIATION 13.9 % (11.6-14.8); RED BLOOD COUNT 3.91 10^6/ul (4.20-5.40)
[2023-08-18 05:40] LABS: ALANINE AMINOTRANSFERASE 12.9 U/L (0-35); ALBUMIN 4.02 g/dL (3.5-5.0); ALKALINE PHOSPHATASE 58.1 U/L (53-141); BILIRUBIN,TOTAL 1.61 mg/dL (0.2-1.3); BLOOD UREA NITROGEN 34.9 mg/dL (7-17); CALCIUM 10.96 mg/dL (8.4-10.2); CARBON DIOXIDE 30.8 mmol/L (22-30.0); CHLORIDE 98.3 mmol/L (98-107); CREATININE 1.51 mg/dL (0.60-1.30); POTASSIUM 4.5 mmol/L (3.5-5.1); SODIUM 134.9 mmol/L (134.5-145); TOTAL PROTEIN 6.81 g/dL (6.3-8.2)
[2023-08-18] MEDS: DUONEB NEB SCH (08:56)
[2023-08-18 09:02] LABS: ABG PH 7.53 (7.35-7.45); BEecf 12.4 (-2.0-3.0); COHb 2.7 (0.5-1.5); HCO3 35.1 (21-28); MetHb 0.9 (0-1.5); TCO2 36.4 (19-24); sO2 96.8 % (94-98)
[2023-08-18 09:03] LABS: ABG O2 HGB 94.2 % (95-100); tHb 11.5 g/dl (11.7-17.4)
--- NOTE | 2023-08-18 09:28 | PCM.PROG ---
Attending Provider: ATTENDING PROVIDER: Dr. RANDY GOEL MD This patient is seen with Patty Paulino, Nurse Practitioner. DATE OF SERVICE: 08/18/23 SUBJECTIVE: This 78 year old /WHITE F was hospitalized 08/10/23. Kidney function is better. Patient is more short of breath up to 4 liters nasal canula. Reporting dizziness up on getting up. REVIEW OF SYSTEMS: CONSTITUTIONAL: No night sweats. Fatigue. No fever or chills. Weakness. HEENT: Eyes: No visual changes. No eye pain. No eye discharge. ENT: No runny nose. No epistaxis. No sinus pain. No odynophagia. No congestion. RESPIRATORY: No cough, no congestion. No hemoptysis. No shortness of breath. CARDIOVASCULAR: No angina symptoms. No CHF symptoms. No atypical chest pain for CAD. No palpitations. No orthopnea.. GASTROINTESTINAL: No abdominal pain. No nausea or vomiting. No diarrhea or constipation. No hematemesis. No hematochezia. GENITOURINARY: No urgency. No frequency. No dysuria. No hematuria. No obstructive symptoms. No discharge. No pain. No significant abnormal bleeding. MUSCULOSKELETAL: No musculoskeletal pain; no joint swelling. NEUROLOGICAL: Awake, alert, oriented to time, place and person. No headache. No neck pain. No syncope. No seizures. Dizziness. PSYCHIATRIC: Not anxious. No depression. No suicidal thoughts. No homicidal thoughts. SKIN: No rash. No lesions. No wounds. ENDOCRINE: No unexplained weight loss. No weight gain. HEMATOLOGIC/LYMPHATIC: No anemia. No purpura. No petechiae. No prolonged or excessive bleeding. No palpable lymph nodes. PHYSICAL EXAMINATION: GENERAL: The patient is awake, alert and oriented, sitting in bed in no distress. VITAL SIGNS: Temperature 97.7 F, Pulse 80, Respiratory Rate 16, BP 116/51, Pulse Ox 92% HEENT: Head normocephalic, atraumatic. Eyes: Extraocular muscles are intact. Pupils are equal, round and reactive to light and accommodation. Ears: No lesions. Nose appeared normal. Throat: No exudate or erythema. NECK: Supple. No JVD, no carotid bruit. No lymphadenopathy or thyromegaly. LUNGS: Diminished breath sounds. Clear to auscultation. Percussion note normal. Chest symmetrical. HEART: S1, S2, no S3. No murmurs. No cyanosis or clubbing. No ascites. Pulses: Dorsalis pedis and posterior tibial pulses +1 to +2 both sides. ABDOMEN: Soft. Non-tender. Bowel sounds active. No CVA tenderness. No mass felt. EXTREMITIES: No edema. Full range of motion of all extremities, equal. NEUROLOGIC: No focal deficit. Cranial nerves II through XII are grossly intact. No headache. No double vision. SKIN: Not dry. Intact. Turgor-normal. LYMPHATIC: No palpable lymph nodes/no lymphedema. MUSCULOSKELETAL: Normal joints with no swelling. Muscle tone is normal. LAB REVIEW: 08/18/23 05:18 08/18/23 05:18 08/18/23 05:18: WBC 7.30, RBC 3.91 L, Hgb 11.2 L, Hct 35.5 L, MCV 90.8, MCH 28.6, MCHC 31.5 L, RDW Coeff of Cristiane 13.9, Plt Count 237, Immature Gran % (Auto) 0.3, Neut % (Auto) 64.3, Lymph % (Auto) 24.7, [place] % (Auto) 7.1, Eos % (Auto) 2.6, Baso % (Auto) 1.0, Neut # (Auto) 4.7, Lymph # (Auto) 1.8, [place] # (Auto) 0.5, Eos # (Auto) 0.2, Baso # (Auto) 0.1, Immature Gran # (Auto) 0.0, Sodium 134.9, Potassium 4.50, Chloride 98.3, Carbon Dioxide 30.8 H, Anion Gap 10.30, B UN 34.9 H, Creatinine 1.51 H, Estimated GFR (MDRD) 33.00, BUN/Creatinine Ratio 23.11, Glucose 109.0 H, Calcium 10.96 H, Total Bilirubin 1.61 H, AST 28.0, ALT 12.9, Alkaline Phosphatase 58.1, Total Protein 6.81, Albumin 4.02, Globulin 2.79, Albumin/Globulin Ratio 1.44 ASSESSMENT: Please see below. 1. Labile hypertension 2. Renal azotemia 3. Chronic respiratory failure 4. Cough PLAN: 1. Lasix 20mg IV 2. Chest x-ray 3. ABG on 4 liters 4. DUO NEBS TID Scheduled Plan and coordination of the patient's care discussed in the presence of Insole Bottom Filler and nurse. SCRIBED BY: JUAN J GRAVES Spinning Lathe Operator Automatic scribed while in presence of service performed by Patty Paulino APRN on 08/18/23 ([id number])
[2023-08-18] MEDS: DECADRON IVP ONE (09:48)
[2023-08-18] MEDS: LASIX IVP ONE (09:51)
[2023-08-18] MEDS: ZITHROMAX 500 MG in SODIUM CHLORIDE 250 ML IV SCH (11:01)
--- NOTE | 2023-08-18 13:08 | DI ---
EXAM: FRONTAL AND LATERAL CHEST RADIOGRAPH(S). 2 VIEWS. History:Cough Comparison: 08/10/2023 Findings: Heart size upper limits of normal. Aortic calcific atherosclerosis. Postsurgical changes in the lower neck. No pneumothorax or pleural effusion. Left basilar atelectasis.Chronic multilevel compression deformities in the mid thoracic spine. Impression: No change.
[2023-08-18] MEDS ORDERED: SOLU-CORTEF 100 MG IVP ONE (16:24)
--- NOTE | 2023-08-18 16:30 | US ---
EXAM: BILATERAL LOWER EXTREMITY DEEP VENOUS ULTRASOUND WITH DOPPLER IMAGING HISTORY: Pain. TECHNIQUE: Live-scale ultrasound with compression maneuvers and color and spectral Doppler ultrasound at rest and with augmentation of the veins was performed. Images were obtained and stored in a [facility] anent archive. COMPARISON: 01/07/2022 FINDINGS: RIGHT LOWER EXTREMITY: Common Femoral Vein: Normal compression. Normal flow on color Doppler images. Normal response to augm entation. Deep Femoral Vein: Normal compression. Normal flow on color Doppler images. Normal response to augmen tation. Femoral Vein: Normal compression. Normal flow on color Doppler images. Normal response to augmentatio n. Popliteal Vein: Normal compression. Normal flow on color Doppler images. Normal response to augmentat ion. Peroneal Vein: Normal compression. Normal flow on color Doppler images. Posterior Tibial Vein: Normal compression. Normal flow on color Doppler images. Anterior Tibial Vein: Normal compression. Normal flow on color Doppler images. Greater Saphenous Vein (Superficial): Normal compression. Normal flow on color Doppler images. LEFT LOWER EXTREMITY: Common Femoral Vein: Normal compression. Normal flow on color Doppler images. Normal response to augm entation. Deep Femoral Vein: Normal compression. Normal flow on color Doppler images. Normal response to augmen tation. Femoral Vein: Normal compression. Normal flow on color Doppler images. Normal response to augmentatio n. Popliteal Vein: Normal compression. Normal flow on color Doppler images. Normal response to augmentat ion. Peroneal Vein: Normal compression. Normal flow on color Doppler images. Posterior Tibial Vein: Normal compression. Normal flow on color Doppler images. Anterior Tibial Vein: Normal compression. Normal flow on color Doppler images. Greater Saphenous Vein (Superficial): Normal compression. Normal flow on color Doppler images. IMPRESSION: No deep venous thrombosis (DVT) in the bilateral lower extremities.
[2023-08-18] MEDS: SOLU-CORTEF 250 MG IVP ONE (16:42)
[2023-08-19 06:52] LABS: BASOPHILS % (AUTO) 0.1 % (0.0-3.0); HEMATOCRIT 35.7 % (37.0-47.0); HEMOGLOBIN 11.5 g/dl (12.0-16.0); IMMATURE GRANULOCYTE # (AUTO) 0.1 (0.0-1.0); IMMATURE GRANULOCYTE % (AUTO) 0.5 % (0.0-5.0); LYMPHOCYTES # (AUTO) 1.1 K/uL (0.60-3.4); LYMPHOCYTES % (AUTO) 8.2 (10.0-50.0); MEAN CORPUSCULAR HEMOGLOBIN 29.2 pg (27.0-31.0); MEAN CORPUSCULAR HGB CONC 32.2 (31.8-35.4); MEAN CORPUSCULAR VOLUME 90.6 fl (81.0-99.0); MONOCYTES # (AUTO) 0.8 K/uL (0.4-2.0); MONOCYTES % (AUTO) 5.6 (0-10); NEUTROPHILS # (AUTO) 11.5 K/ul (2.0-6.9); NEUTROPHILS % (AUTO) 85.6 % (42.2-75.2); PLATELET COUNT 302 10^3/uL (140-440); RDW COEFFICIENT OF VARIATION 13.9 % (11.6-14.8); RED BLOOD COUNT 3.94 10^6/ul (4.20-5.40)
[2023-08-19 06:53] LABS: WHITE BLOOD COUNT 13.48 K/ul (4.6-10.2)
[2023-08-19 07:04] LABS: ALANINE AMINOTRANSFERASE 15.8 U/L (0-35); ALBUMIN 4.47 g/dL (3.5-5.0); ALKALINE PHOSPHATASE 61.4 U/L (53-141); ASPARTATE AMINO TRANSFERASE 24.9 U/L (14-36); BILIRUBIN,TOTAL 1.19 mg/dL (0.2-1.3); BLOOD UREA NITROGEN 55.1 mg/dL (7-17); CALCIUM 10.69 mg/dL (8.4-10.2); CARBON DIOXIDE 27.5 mmol/L (22-30.0); CHLORIDE 97.5 mmol/L (98-107); CREATININE 1.66 mg/dL (0.60-1.30); GLUCOSE 143.1 mg/dL (74-106); POTASSIUM 4.16 mmol/L (3.5-5.1); SODIUM 133.6 mmol/L (134.5-145); TOTAL PROTEIN 7.51 g/dL (6.3-8.2)
[2023-08-19] MEDS: TYLENOL PO ONE (07:14)
[2023-08-19] MEDS: PERCOCET 5-325 PO ONE (07:47)
[2023-08-19] MEDS ORDERED: SOLU-CORTEF 250 MG IVP ONE (08:59)
[2023-08-19] MEDS: DULCOLAX PO PRN (09:27)
[2023-08-19] MEDS: DEXTROSE 5%-1/2NS IV SOLUTION 1,000 ML IV SCH (10:47)
[2023-08-19] MEDS: SOLU-CORTEF 250 MG IVP ONE (11:26)
[2023-08-19] MEDS ORDERED: SOLU CORTEF IV STA (20:26)
[2023-08-19] MEDS ORDERED: SODIUM CHLORIDE IV STA (20:26)
[2023-08-19] MEDS ORDERED: SOLU-CORTEF 100 MG ONE (21:19)
[2023-08-19] MEDS: SOLU-CORTEF 100 MG IVP ONE (22:06)
[2023-08-19] MEDS ORDERED: SOLU-CORTEF 100 MG IVP ONE (22:15)
[2023-08-20 05:34] LABS: BASOPHILS % (AUTO) 0.1 % (0.0-3.0); EOSINOPHILS % (AUTO) 0.1 % (0.0-7.0); HEMATOCRIT 34.5 % (37.0-47.0); HEMOGLOBIN 10.8 g/dl (12.0-16.0); IMMATURE GRANULOCYTE # (AUTO) 0.1 (0.0-1.0); IMMATURE GRANULOCYTE % (AUTO) 0.6 % (0.0-5.0); LYMPHOCYTES # (AUTO) 1.1 K/uL (0.60-3.4); LYMPHOCYTES % (AUTO) 10.6 (10.0-50.0); MEAN CORPUSCULAR HEMOGLOBIN 28.7 pg (27.0-31.0); MEAN CORPUSCULAR HGB CONC 31.3 (31.8-35.4); MEAN CORPUSCULAR VOLUME 91.8 fl (81.0-99.0); MONOCYTES # (AUTO) 0.4 K/uL (0.4-2.0); MONOCYTES % (AUTO) 3.8 (0-10); NEUTROPHILS % (AUTO) 84.8 % (42.2-75.2); PLATELET COUNT 275 10^3/uL (140-440); RDW COEFFICIENT OF VARIATION 13.9 % (11.6-14.8); RED BLOOD COUNT 3.76 10^6/ul (4.20-5.40); WHITE BLOOD COUNT 10.56 K/ul (4.6-10.2)
[2023-08-20 05:46] LABS: ALANINE AMINOTRANSFERASE 14.2 U/L (0-35); ALBUMIN 4.15 g/dL (3.5-5.0); ALKALINE PHOSPHATASE 52.5 U/L (53-141); ASPARTATE AMINO TRANSFERASE 20.4 U/L (14-36); BILIRUBIN,TOTAL 0.83 mg/dL (0.2-1.3); BLOOD UREA NITROGEN 53.2 mg/dL (7-17); CALCIUM 9.96 mg/dL (8.4-10.2); CARBON DIOXIDE 28.5 mmol/L (22-30.0); CHLORIDE 98.5 mmol/L (98-107); CREATININE 1.28 mg/dL (0.60-1.30); GLUCOSE 150.5 mg/dL (74-106); POTASSIUM 4.12 mmol/L (3.5-5.1); SODIUM 134.9 mmol/L (134.5-145); TOTAL PROTEIN 7.01 g/dL (6.3-8.2)
[2023-08-20] MEDS ORDERED: SODIUM CHLORIDE IV ONE (07:00)
[2023-08-20] MEDS ORDERED: SOLU CORTEF IV ONE (07:00)
[2023-08-20] MEDS: SOLU-CORTEF 100 MG IVP ONE (08:30)
[2023-08-20 08:36] LABS: ABG O2 HGB 85.1 % (95-100); ABG PH 7.44 (7.35-7.45); BEecf 10.4 (-2.0-3.0); COHb 2.3 (0.5-1.5); HCO3 34.6 (21-28); TCO2 36.2 (19-24); sO2 89.4 % (94-98); tHb 11.4 g/dl (11.7-17.4)
[2023-08-20 10:41] VITALS: BP 128/60; PULSE 74; RESP 14; TEMP 97.5
[2023-08-20] MEDS ORDERED: PERCOCET 5-325 PO PRN (11:45)
[2023-08-20] MEDS ORDERED: DUONEB NEB SCH (14:00)
[2023-08-20] MEDS ORDERED: DESYREL PO SCH (21:00)
[2023-08-21] MEDS ORDERED: PREDNISONE PO SCH (07:30)
--- NOTE | 2023-08-23 09:07 | PN ---
DATE OF SERVICE: 08/18/23 SUBJECTIVE: The patient was seen and examined with the Nurse Practitioner. The patient's condition is stable at present time but now her respiratory status seems to be deteriorating to some extent. In the course of a few hours the patient's saturation dropped to 88% on 3-4 liters. Venturi mask was tried at 40% with practically no change. The saturation dropped by a double of points. The patient was put back on 4 liters with 90% saturation. was present at the time, he was explained that her overall condition deteriorating because of weakness and practically having very poor appetite, respiratory muscles external tiring out. The patient was given IV Lasix in the morning and had good urine output. The patient was also given 1cc Decadron and antibiotic Azithromycin because of bronchitis. Later on during the day given 125mg IV Solu-Cortef. Unable to do any CT angiogram for kidney functions being allergic to iodinated dye. In any case I don't suspect it. Deterioration of her respiratory status and doesn't have any swelling of the legs. We will do bilateral venous scan. ADDENDUM: The patient's venous scan was done which didn't show any DVT. Later on around 6:30 the patient's saturation noted to be 91-94. She sat up at the bedside and ate. She was reported as comfortable. Daughter has already been explained about the patient's condition which is critical. This morning I had talked to the patient about her respiratory status and she indicated that in case there is a deterioration she doesn't want any intubation, respirator. The family is aware of the fact that she doesn't want intubation or respirator or resuscitation in case of cardiopulmonary arrest. TIME SPENT: More than 35 minutes. Plan and coordination of the patient's care discussed in the presence of nurse. ALAN
--- NOTE | 2023-08-23 11:06 | PN ---
DATE OF SERVICE: 08/20/23 Discharge note SUBJECTIVE: 78 year old white female hospitalized with hypotension. Originally the patient had come to the emergency room with hypertensive crisis with systolic blood pressure of 220. The patient symptomatic and complained of having some headache and dizziness. She has been checking her blood pressure at home and it has been consistently over 200 for past several hours. In emergency room the patient was given Clonidine 0.2mg and the blood pressure dropped to 60 systolic. The patient at that point was practically asymptomatic and put on Levophed drip which was discontinued. It was later on switched to Dopamine while she was admitted to the floor. The patient stayed on vasopressors for a day and a half and then she was weaned off. After 2-3 days after acute tubular necrosis with creatinine of 2.3 and BUN 60, the patient then was given IV fluids. The patient was taken off antihypertensive medication because the patient started becoming hypotensive and after the fluid resuscitation the patient's creatinine is 1.2 and BUN is 53 at the time of discharge. The patient is up and about and the appetite is practically back to normal. She is feeling better. The patient is advised physical therapy to get some strength but she declined, she would like to go home. The patient is DNR. At the time of discharge the patient's antihypertensive medications like Dyazide, Bisoprolol are discontinued. She was advised not to take Clonidine as instructed before. New medications were Prednisone 10mg one a day for 10 days along with Trazodone 50mg at night for insomnia. The patient was advised to continue other medication as before that is, Omeprazole, Iron pill, Oxycodone for pain, Lexapro for depression, Metoprolol for peripheral arterial disease and carotid occlusive disease with status post carotid endarterectomy near 4-5 weeks ago. The patient hgb was 10.8 at the time of discharge with hct of 34.5. There is no evidence of GI bleed. Her hgb more or as been stable. Hemodilution and poor appetite throughout the stay in the hospital. The patient has dropped some hgb but not significant. She has stayed in the hospital for nearly 10 days. During the stay in the hospital, the patient had developed hypoxemia, secondary to weakness of external muscle like intercostal with underline severe chronic lung disease with kyphosis. The patient also had bronchitis which is more or less chronic. In any case she was treated with Azithromycin 500mg IV times three doses. Steroids were used, going to be tapered off steroids. She was also put on NEBS treatment which she is going to continue. Condition at the time of discharge is stable. She is going to be seen in 3-4 days after discharge. The patient will have home oxygen 2-3 liters. On day of discharge her arterial blood gasses done on room air showed 88% saturation. Depression is well controlled with Lexapro, good family support. ADMISSION DAY: LEVEL 5 REST OF THE DAYS: INTERMEDIATE/A COUPLE OF DAYS IN BETWEEN WERE EXTENSIVE FINAL DAY: D IN DISCHARGE LABS: Hgb 10.8, hct 34.5, WBC 10,000 with normal differential, creatinine 1.28 with BUN of 53 and potassium 4.1. The patient was strongly advised to drink lots of fluids and advised to eat her meals on regular basis.The patient was on some form of diet for 2-3 month administered by her daughter. She is advised not to follow any diet for new 2-3 months. TIME SPENT: More than 35 minutes. Plan and coordination of the patient's care discussed in the presence of nurse. ALAN
--- NOTE | 2023-08-23 13:32 | DS ---
DATE OF SERVICE: 08/20/23 FINAL DIAGNOSIS: 1. Hypotension drug induced, Clonidine 2. Hypertensive emergency, history of hypertension 3. Acute tubular necrosis 4. Chronic bronchitis 5. Severe chronic lunch disease 6. Chronic respiratory failure 7. Peripheral arterial disease with severe generalized atherosclerosis 8. Post bilateral carotid endarterectomy 9. Dyslipidemia 10. Generalized osteoporosis with kyphosis 11. Depression 12. Chronic anemia DISCHARGE INSTRUCTIONS: Discharge home. No antihypertensive medications for now. Come back to the office on Tuesday at 10am on followup. The patient is going to be on home oxygen 2-3 liters per cannula per minute. NEBS treatment with DUO NEBS TID as needed at home. MEDICATIONS AT DISCHARGE: Clopidogrel Oxycodone Ferrous sulfate Omeprazole Lexapro Pravastatin NEW PRESCRIPTIONS: Prednisone 10mg daily for 10 days Trazodone 50mg PO at night HOSPITAL COURSE: 78 year old white female hospitalized with hypotension. Originally the patient had come to the emergency room with hypertensive crisis with systolic blood pressure of 220. The patient symptomatic and complained of having some headache and dizziness. She has been checking her blood pressure at home and it has been consistently over 200 for past several hours. In emergency room the patient was given Clonidine 0.2mg and the blood pressure dropped to 60 systolic. The patient at that point was practically asymptomatic and put on Levophed drip which was discontinued. It was later on switched to Dopamine while she was admitted to the floor. The patient stayed on vasopressors for a day and a half and then she was weaned off. After 2-3 days after acute tubular necrosis with creatinine of 2.3 and BUN 60, the patient then was given IV fluids. The patient was taken off antihypertensive medication because the patient started becoming hypotensive and after the fluid resuscitation the patient's creatinine is 1.2 and BUN is 53 at the time of discharge. The patient is up and about and the appetite is practically back to normal. She is feeling better. The patient is advised physical therapy to get some strength but she declined, she would like to go home. The patient is DNR. At the time of discharge the patient's antihypertensive medications like Dyazide, Bisoprolol are discontinued. She was advised not to take Clonidine as instructed before. New medications were Prednisone 10mg one a day for 10 days along with Trazodone 50mg at night for insomnia. The patient was advised to continue other medication as before that is, Omeprazole, Iron pill, Oxycodone for pain, Lexapro for depression, Metoprolol for peripheral arterial disease and carotid occlusive disease with status post carotid endarterectomy near 4-5 weeks ago. The patient hgb was 10.8 at the time of discharge with hct of 34.5. There is no evidence of GI bleed. Her hgb more or as been stable. Hemodilution and poor appetite throughout the stay in the hospital. The patient has dropped some hgb but not significant. She has stayed in the hospital for nearly 10 days. During the stay in the hospital, the patient had developed hypoxemia, secondary to weakness of external muscle like intercostal with underline severe chronic lung disease with kyphosis. The patient also had bronchitis which is more or less chronic. In any case she was treated with Azithromycin 500mg IV times three doses. Steroids were used, going to be tapered off steroids. She was also put on NEBS treatment which she is going to continue. Condition at the time of discharge is stable. She is going to be seen in 3-4 days after discharge. The patient will have home oxygen 2-3 liters. On day of discharge her arterial blood gasses done on room air showed 88% saturation. Depression is well controlled with Lexapro, good family support. TIME SPENT: 70 minutes MTDD
== END 2023-08-20 13:00 | disposition home or self-care (01) | DRG 683 ==
LOC: ED 02:05 → SCU 02:05 → OBSVTOIN 05:57 → SCU 07:52
PROVIDERS: ADMIT Internal Medicine; ATTEND Internal Medicine
DX: J96.10 Chronic respiratory failure, unspecified whether with hypoxia or hypercapnia; D63.8 Anemia in other chronic diseases classified elsewhere; Z87.891 Personal history of nicotine dependence; J44.9 Chronic obstructive pulmonary disease, unspecified; I70.91 Generalized atherosclerosis; F32.A Depression, unspecified; R05.1 Acute cough; I10 Essential (primary) hypertension; S22.000A Wedge compression fracture of unspecified thoracic vertebra, initial encounter for closed fracture; J20.9 Acute bronchitis, unspecified; I16.1 Hypertensive emergency; Z79.899 Other long term (current) drug therapy; Z98.62 Peripheral vascular angioplasty status; N17.0 Acute kidney failure with tubular necrosis; E78.5 Hyperlipidemia, unspecified; I25.10 Atherosclerotic heart disease of native coronary artery without angina pectoris; I95.2 Hypotension due to drugs; I51.7 Cardiomegaly; Z79.01 Long term (current) use of anticoagulants

== ENCOUNTER 2023-11-02 16:20 | Inpatient (IN) ==
[2023-11-02] MEDS ORDERED: VANCOMYCIN VIAL (IF PREGNANT) 1 GM in SODIUM CHLORIDE 250 ML IV ONE (16:45)
[2023-11-02] MEDS: TYLENOL PO STA (16:52)
[2023-11-02] MEDS: DUONEB NEB STA (17:00)
[2023-11-02 17:01] LABS: BASOPHILS # (AUTO) 0.1 K/uL (0-0.2); BASOPHILS % (AUTO) 0.4 % (0.0-3.0); EOSINOPHILS % (AUTO) 0.1 % (0.0-7.0); HEMATOCRIT 38.7 % (37.0-47.0); HEMOGLOBIN 12.3 g/dl (12.0-16.0); IMMATURE GRANULOCYTE # (AUTO) 0.1 (0.0-1.0); IMMATURE GRANULOCYTE % (AUTO) 0.7 % (0.0-5.0); LYMPHOCYTES # (AUTO) 1.1 K/uL (0.60-3.4); LYMPHOCYTES % (AUTO) 6.7 (10.0-50.0); MEAN CORPUSCULAR HEMOGLOBIN 30.3 pg (27.0-31.0); MEAN CORPUSCULAR HGB CONC 31.8 (31.8-35.4); MEAN CORPUSCULAR VOLUME 95.3 fl (81.0-99.0); MONOCYTES # (AUTO) 0.7 K/uL (0.4-2.0); MONOCYTES % (AUTO) 4.3 (0-10); NEUTROPHILS # (AUTO) 14.4 K/ul (2.0-6.9); NEUTROPHILS % (AUTO) 87.8 % (42.2-75.2); PLATELET COUNT 272 10^3/uL (140-440); RDW COEFFICIENT OF VARIATION 12.8 % (11.6-14.8); RED BLOOD COUNT 4.06 10^6/ul (4.20-5.40); WHITE BLOOD COUNT 16.36 K/ul (4.6-10.2)
[2023-11-02 17:12] LABS: PROTHROMBIN TIME 10.2 SEC (9.3-11.0)
[2023-11-02 17:14] LABS: ALANINE AMINOTRANSFERASE 17.4 U/L (0-35); ALBUMIN 4.78 g/dL (3.5-5.0); BILIRUBIN,TOTAL 1.84 mg/dL (0.2-1.3); BLOOD UREA NITROGEN 17.5 mg/dL (7-17); CALCIUM 9.51 mg/dL (8.4-10.2); CARBON DIOXIDE 21.7 mmol/L (22-30.0); CHLORIDE 101.8 mmol/L (98-107); CREATININE 0.67 mg/dL (0.60-1.30); GLUCOSE 125.8 mg/dL (74-106); POTASSIUM 3.98 mmol/L (3.5-5.1); SODIUM 132.4 mmol/L (134.5-145); TOTAL PROTEIN 7.73 g/dL (6.3-8.2)
[2023-11-02] MEDS: ZOFRAN 4 MG/2 ML IVP STA (17:14)
[2023-11-02] MEDS: PEPCID IVP ONE (17:15)
[2023-11-02] MEDS: SODIUM CHLORIDE 1,000 ML IV ONE (17:16)
[2023-11-02] MEDS: TORADOL IVP STA (17:16)
[2023-11-02] MEDS: ZOSYN 3.375 GM 3.375 GM in SODIUM CHLORIDE 100ML 100 ML IV ONE (17:19)
[2023-11-02 17:20] LABS: MOLECULAR FLU A NEGATIVE BY NAAT (NEGATIVE); MOLECULAR FLU B NEGATIVE BY NAAT (NEGATIVE); RSV MOLECULAR NEGATIVE BY NAAT (NEGATIVE); SARS COV-2 RNA RAPID NAAT NEGATIVE (NEGATIVE)
[2023-11-02 17:25] LABS: TROPONIN I 0.033 ng/ml (0.0000-0.120)
--- NOTE | 2023-11-02 17:53 | DI ---
EXAM: FRONTAL AND LATERAL VIEWS OF THE CHEST. HISTORY: Sepsis COMPARISON: 08/18/2019 for FINDINGS: Aortic atherosclerosis. Cardiac silhouette is enlarged. Lungs are hyperexpanded. No consolidating infiltrate. Linear stranding lung bases bilaterally may r eflect atelectasis or early infiltrate. Postoperative change in the neck. No pneumothorax. Small effusion not excluded. No acute osseous abnormality. IMPRESSION: 1. Chronic-appearing findings with superimposed atelectasis or early infiltrate lung bases.
[2023-11-02] MEDS: VANCOMYCIN 1 GRAM/200 ML PREMIX 1 GM/200 ML BAG IV ONE (17:56)
[2023-11-02] MEDS: LACTATED RINGERS 1,000 ML IV STA (18:14)
--- NOTE | 2023-11-02 18:22 | ED.PDOC ---
General ED Provider: Dr. MICHA ECHOLS DO Chief Complaint: Nausea/Vomiting Stated Complaint: 78-year-old female presents to the ER complaining of cough, generalized weakness, subjective fever and lightheadedness. The symptoms started shortly prior to arrival. She was seen by her primary physician earlier this morning and was feeling fine but then started feeling poorly later in the day. She denies any sick contacts but does report an occasional cough. She has a history of very fragile blood pressure and was recently hospitalized for several weeks to try and control her blood pressure. She denies chest pain, shortness of breath, abdominal pain, GI or issues. She also has a recent history of congestive heart failure. Patient arrives febrile, tachycardic and mildly hypotensive, sepsis alert flagged Time Seen by Provider: 11/02/23 16:23 Information Source: Patient and Family Primary Care Provider: RANDY GOEL MD Nursing and Triage Documentation Reviewed and Agree: Yes What is Opioid Naive?: *Opioid Naive implies the patient is not already taking opioids or not chronically receiving opioids on a daily basis. *PRN dosing is not "usually" associated with tolerance. *Patients are at higher risk of over-sedation and aspiration. What is Opioid Tolerant?: *Opioid Tolerance implies less than the expected response to an opioid. *Acquired tolerance is defined by the patient taking 60mg of oral morphine daily (or equianalgesic dose of another opioid) for 1 week or more. *Often associated with chronic pain. *May take more than usual dose to achieve desired pain control. Review of Systems Review Of Systems Constitutional: Reports Fever, Malaise, Weakness and Sweats Respiratory: Reports Cough; Denies Shortness of Breath All Other Systems: Reviewed and Negative [facility] Medical History Compression fracture of L1 vertebra Dr. Ponce S32.010A - Wedge compression fracture of first lumbar vertebra, initial encounter for closed fracture (ICD-10) Compression fracture of T8 vertebra Dr. Ponce S22.060A - Wedge compression fracture of T7-T8 vertebra, initial encounter for closed fracture (ICD-10) Compression fracture of T7 vertebra Dr. Ponce S22.060A - Wedge compression fracture of T7-T8 vertebra, initial encounter for closed fracture (ICD-10) Compression fracture of T9 vertebra Dr. Ponce S22.070A - Wedge compression fracture of T9-T10 vertebra, initial encounter for closed fracture (ICD-10) Diverticulitis K57.92 - Diverticulitis of intestine, part unspecified, without perforation or abscess without bleeding (ICD-10) Chest pain R07.9 - CHEST PAIN, UNSPECIFIED (ICD-10) Lumbar compression fracture S32.000A - WEDGE COMPRESSION FRACTURE OF UNSP LUMBAR VERTEBRA, INIT (ICD-10) Adult general medical exam Z00.00 - Encounter for general adult medical examination without abnormal findings (ICD-10) Left carotid artery occlusion I65.22 - Occlusion and stenosis of left carotid artery (ICD-10) Hypertension 2013 I10 - Essential (primary) hypertension (ICD-10) Hyperlipidemia for a few years E78.5 - Hyperlipidemia, unspecified (ICD-10) Personal history of mental disorder of pain a few years Z86.59 - Personal history of other mental and behavioral disorders (ICD-10) Family History SISTER Psychosis Mother Cerebral aneurysm FATHER Cardiovascular disease Social History Smoking and tobacco status: Former smoker Alcohol intake: former Substance use type: does not use Special chet needs: No Agree to transfusion: Yes Adopted: No Caregiver/support person: No Foster care: No Household members: spouse Housing: house Marital status: M Lives independently: Yes Daycare: no daycare service: No detention: No History of recent travel: No Do you think of yourself as: straight/heterosexual Current gender identity: female Seatbelt use: always Drives intoxicated or rides with intoxicated clark driver: No Water heater temperature set < 120 degrees: Yes Working smoke detector in home: Yes Fire extinguisher in home: Yes Carbon monoxide detector in home: Yes Surgical History (Updated 09/15/23 @ 09:37 by ELIZABETH RUSH) Status post carotid endarterectomy 2012 Ranral glem Z98.890 - Other specified postprocedural states (ICD-10) History of carotid endarterectomy left; 07/02/23 Z98.890 - Other specified postprocedural states (ICD-10) History of gastrointestinal surgery 2013 gall bladder Z98.890 - Other specified postprocedural states (ICD-10) Female Reproductive History Menstrual Hx Hysterectomy: Yes Hx Tubal Ligation: No Physical Exam Physical Exam Appearance: Reports Well-appearing, No pain distress and Well-nourished Eyes: Reports EDWARD and EOMI ENT: Reports Nose normal and Oropharynx normal Neck: Supple Respiratory: Reports Airway patent, Breath sounds diminished and Respirations nonlabored; Denies Crackles or Retractions Cardiovascular: Reports Pulses normal and Tachycardia; Denies RRR GI/: Reports Soft and Nontender Musculoskeletal: Reports Normal strength, ROM intact and No edema Skin: Reports Warm, Dry and Normal color Neurological: Reports Sensation intact, Motor intact, Alert and Oriented Psychiatric: Reports Affect appropriate and Mood appropriate Interpretation EKG Interpretation EKG Interpretation By: ED Physician Time of EKG #1: 16:51 Rate: Tachy Rhythm: Sinus Ectopy: None [place]: NL ST Segment: Normal Interpretation: Nonischemic EKG Critical Care Note Critical Care Note Total Critical Care Time (mins): 120 Comments: Critical care due to patient having sepsis alert requiring propped recognition, evaluation, treatment. Constant cardiac monitoring, multiple bedside reassessments, prompt fluid resuscitation with careful consideration for fluid overload. Course Course 11/02/23 16:55 11/02/23 16:55 Orders, Labs, Meds: Lab Review 11/02/23 11/02/23 11/02/23 16:44 16:55 17:02 WBC 16.36 H D RBC 4.06 L Hgb 12.3 Hct 38.7 MCV 95.3 MCH 30.3 MCHC 31.8 RDW Coeff of Cristiane 12.8 Plt Count 272 Immature Gran % (Auto) 0.7 Neut % (Auto) 87.8 H Lymph % (Auto) 6.7 L Shannon % (Auto) 4.3 Eos % (Auto) 0.1 Baso % (Auto) 0.4 Neut # (Auto) 14.4 H Lymph # (Auto) 1.1 Shannon # (Auto) 0.7 Eos # (Auto) 0.0 Baso # (Auto) 0.1 Immature Gran # (Auto) 0.1 PT 10.2 INR 0.98 Sodium 132.4 L Potassium 3.98 Chloride 101.8 Carbon Dioxide 21.7 L Anion Gap 12.88 BUN 17.5 H Creatinine 0.67 Estimated GFR (MDRD) 85.00 BUN/Creatinine Ratio 26.11 Glucose 125.8 H Lactic Acid 1.58 Calcium 9.51 Total Bilirubin 1.84 H AST 24.0 ALT 17.4 Alkaline Phosphatase 72.0 Troponin I 0.033 NT-Pro-B Natriuret Pep 498 H Total Protein 7.73 Albumin 4.78 Globulin 2.95 Albumin/Globulin Ratio 1.62 Procalcitonin < 0.05 Influ A Molecular Assay Negative by naat Influ B Molecular Assay Negative by naat RSV Antigen Negative by naat SARS CoV-2 RNA Rapid VANESSA Negative Orders Category Date Time Status EKG-(ED ONLY) Stat CARDIO 11/02/23 16:23 Completed NEBULIZER TREATMENT Stat CARDIO 11/02/23 16:46 Completed Glucose [ED ACCUCHECK ASSESSMENT] .ONCE EMERGENCY 11/02/23 16:24 Active OXYGEN [ED APPLY O2] .ONCE EMERGENCY 11/02/23 17:15 Active BLOOD CULTURE (ED ONLY) Stat LAB 11/02/23 16:55 Received CBC W/ AUTO DIFF Stat LAB 11/02/23 16:55 Completed CMP [COMPREHENSIVE METABOLIC PANEL] Stat LAB 11/02/23 16:55 Completed COVID [SARS COV-2 RNA RAPID VANESSA] Stat LAB 11/02/23 16:44 Completed ED PROBNP [NT-PROBNP(ED)] Stat LAB 11/02/23 17:07 Received FLU A & B MOLECULAR [FLU A/B MOLECULAR] Stat LAB 11/02/23 16:44 Completed LACTIC ACID Stat LAB 11/02/23 16:55 Completed NT-PROBNP(ED) Stat LAB 11/02/23 16:55 Completed PROCALCITONIN Stat LAB 11/02/23 17:02 Completed PT WITH INR Stat LAB 11/02/23 16:55 Completed RSV Stat LAB 11/02/23 16:44 Completed TROPONIN I Stat LAB 11/02/23 16:55 Completed URINALYSIS C & S IF INDICATED Stat LAB 11/02/23 16:24 Uncollected Acetaminophen [Tylenol] Meds 11/02/23 16:38 Discontinued 500 mg PO ONCE STA Famotidine Inj [Pepcid] Meds 11/02/23 16:23 Discontinued 20 mg IVP ONCE ONE Ipratropium/Albuterol Neb [Duoneb] Meds 11/02/23 16:46 Discontinued 3 ml NEB ONCE STA Ketorolac Tromethamine [Toradol] Meds 11/02/23 16:38 Discontinued 15 mg IVP ONCE STA Ondansetron HCl/Pf [Zofran 4 mg/2 ml] Meds 11/02/23 16:23 Discontinued 4 mg IVP ONCE STA Piperacillin Sodium/Tazobactam [Zosyn 3.375 gm] 3.375 Meds 11/02/23 16:45 Discontinued gm 0.9 % Sodium Chloride [Sodium Chloride 100Ml] 100 ml IV ONCE Ringers Lactated Solution [Lactated Ringers] 1,000 ml Meds 11/02/23 16:36 Discontinued IV BOLUS Sodium Chloride 0.9% [Sodium Chloride] 1,000 ml Meds 11/02/23 16:23 Discontinued IV BOLUS Vancomycin/Water For Inj (Peg) [Vancomycin 1 Gram/200 Meds 11/02/23 17:00 Discontinued ml Premix] 1 gm in 200 ml IV ONCE CHEST, 2 VIEWS PA & LAT Stat RADS 11/02/23 16:37 Completed Medications Discontinued Medications Generic Name Dose Route Start Last Admin Trade Name Freq PRN Reason Stop Dose Admin Acetaminophen 500 mg 11/02/23 16:38 11/02/23 16:52 Acetaminophen 500 Mg Tablet PO 11/02/23 16:39 Not Given ONCE STA Albuterol/Ipratropium 3 ml 11/02/23 16:46 11/02/23 17:00 Ipratropium/Albuterol Vial.Neb NEB 11/02/23 16:47 3 ml ONCE STA Administration Famotidine 20 mg 11/02/23 16:23 11/02/23 17:15 Famotidine Inj 20 Mg/2 Ml Vial IVP 11/02/23 16:24 20 mg ONCE ONE Administration Sodium Chloride 1,000 mls @ 1,000 mls/hr 11/02/23 16:23 11/02/23 17:16 Sodium Chloride IV 11/02/23 17:22 1,000 mls/hr BOLUS ONE Administration Lactated Ringer's 1,000 mls @ 1,000 mls/hr 11/02/23 16:36 Lactated Ringers IV 11/02/23 17:35 BOLUS STA Piperacillin Sod/Tazobactam 100 mls @ 200 mls/hr 11/02/23 16:45 11/02/23 17:19 Sod 3.375 gm/ Sodium Chloride IV 11/02/23 17:14 200 mls/hr ONCE ONE Administration VANCOMYCIN/WATER FOR INJ (PEG) 1 gm in 200 mls @ 200 mls/hr 11/02/23 17:00 11/02/23 17:56 Vancomycin 1 Gram/200 Ml Premix IV 11/02/23 17:59 200 mls/hr ONCE ONE Administration Ketorolac Tromethamine 15 mg 11/02/23 16:38 11/02/23 17:16 Ketorolac Tromethamine 15 Mg/Ml Vial IVP 11/02/23 16:39 15 mg ONCE STA Administration Ondansetron HCl 4 mg 11/02/23 16:23 11/02/23 17:14 Ondansetron Hcl/Pf 4 Mg/2 Ml Sdv IVP 11/02/23 16:24 4 mg ONCE STA Administration Vital Signs: Temp Pulse Resp BP Pulse Ox O2 Flow Rate 11/02/23 17:44 4 11/02/23 17:39 3 11/02/23 17:18 2 11/02/23 16:22 102.2 F H 107 H 20 82/57 L 92 L Discharge Plan Discharge Patient Disposition: ADMITTED INPATIENT Discharge Problem: Acute and chronic respiratory failure Qualifiers: Respiratory failure complication: hypoxia Qualified Code(s): J96.21 - Acute and chronic respiratory failure with hypoxia Sepsis Qualifiers: Sepsis type: sepsis due to unspecified organism Sepsis acute organ dysfunction status: without acute organ dysfunction Qualified Code(s): A41.9 - Sepsis, unspecified organism Pneumonia Qualifiers: Pneumonia type: due to unspecified organism Laterality: bilateral Lung location: lower lobe of lung Qualified Code(s): J18.9 - Pneumonia, unspecified organism Prescriptions: No Action alprazolam [Xanax] 0.25 mg tablet 0.25 mg PO BID PRN (Reason: anxiety) Qty: 20 1RF clopidogrel [Plavix] 75 MG tablet 75 mg PO DAILY oxycodone-acetaminophen 5-325 mg tablet 1 tab PO Q6H PRN (Reason: pain) ipratropium-albuterol 0.5 mg-3 mg(2.5 mg base)/3 mL solution for nebulization 3 ml inhalation TID Qty: 90 0RF clonidine HCl 0.1 mg tablet 0.1 mg PO Q8H PRN (Reason: hypertensive emergency) ferrous sulfate 325 mg (65 mg iron) tablet 325 mg PO EVERY OTHER DAY triamterene-hydrochlorothiazid 37.5-25 mg tablet 1 tab PO QDAY PRN (Reason: hypertension) Rx Instructions: if blood pressure over 170 systolic per family polyethylene glycol 3350 [Miralax] 17 gram/dose powder 17 g PO DAILY PRN (Reason: constipation) trazodone 50 mg tablet See Rx Instructions .ROUTE .COMPLEX Qty: 30 1RF Dose Instruction: TAKE ONE TABLET AT BEDTIME Rx Instructions: TAKE ONE TABLET AT BEDTIME Did you review [place] [employer] for ALL controlled substances?: Not Applicable ED Provider: MICHA ECHOLS Physician Progress Note: [] 78-year-old female presents to the ER with sepsis alert. Suspect respiratory etiology such as pneumonia. Will obtain viral swabs in addition to laboratory workup in accordance with sepsis protocols. Will use extreme caution with fluid bolus as she does have a history of congestive heart failure and although I do not feel her symptoms are attributed to that currently, I do not want this to become a concurrent issue. We will try to fluid resuscitate as aggressively as possible pain close attention for fluid overload as she is mildly hypotensive and tachycardic upon presentation. Patient be given IV Toradol for antipyretic. She took Tylenol prior to arrival. She will receive broad-spectrum antibiotics she does have a couple allergies that limit some of her choices. Low suspicion for other acute cardiopulmonary processes to include but not limited to ACS, [place], PE, pneumothorax, dissection or tamponade. Patient does require oxygen at night but she is mildly hypoxic as well in the upper 80s therefore supplemental oxygen provided to maintain saturation over 92% which she did quite well in the emergency department. I spoke with her primary physician who requested me to contact the hospitalist service for admission for further management and treatment he is otherwise aware. 1820: Patient reassessment improved. Blood pressure and tachycardia have both improved. Tissue perfusion adequate. Utilized labs and vital signs as well as visual evaluation of the patient
--- NOTE | 2023-11-02 19:47 | CT ---
EXAM: CHEST CT WITHOUT CONTRAST HISTORY: Hypoxia. Fever. TECHNIQUE: CT acquisition of the chest from the thoracic inlet to the upper abdomen without IV contra st administration. 2-D coronal and sagittal reformatted images were obtained from the axial source i mages. IV Contrast: None. CT Dose Reduction Techniques Performed: Yes. COMPARISON: 07/14/2018 FINDINGS: Surgical clips in the right neck, again noted. Apparent vascular stent in the left carotid artery, o nly partially imaged. Interval development of mildly enlarged precarinal node. Measures 1.0 cm in s hort axis dimension. No enlarged hilar or axillary nodes identified. Several calcified right hilar nodes, again noted, secondary to old granulomatous disease. Heart size is normal. No significant pe ricardial fluid/thickening. No pleural fluid. Visualized portions of the upper abdomen included in this examination of the chest show a punctate no nobstructing stone of the partially visualized left kidney. Cholecystectomy, again noted. Lung window images again show mild to moderate emphysema. Stable biapical focal fibrosis, right grea ter than left. Interval development of moderate peribronchovascular consolidation and ground glass o f the right lower lobe. 3 mm pulmonary nodule in the left upper lobe on image number 33, stable sinc e June 2010, benign. Calcified granuloma of the right middle lobe, again noted. Bone window images show no significant lytic or sclerotic bone lesions. Stable mild scoliosis, conve x to the right. Stable chronic mild T6 and T7 and mild to moderate L1 superior endplate compression fractures. Interval development of mild T8 and T9 probably chronic chronic mild compression fracture s. Probable hemangioma of the T12 vertebral body, stable. IMPRESSION: 1. Moderate pneumonia of the right lower lobe. Follow-up CT chest in 1 month is recommended to show improvement. 2. Interval development of mildly enlarged mediastinal nodes, probably reactive. Attention to the n ode in the follow- up scan in 1 month. 3. Stable mild to moderate emphysema. All CT scans are performed using dose optimization techniques as appropriate to the performed exam an d include at least one of the following: Automated exposure control, adjustment of the mA and/or kV according t o size, and the use of iterative reconstruction technique.
[2023-11-02 19:58] LABS: BILIRUBIN,URINE Negative (NEGATIVE); CLARITY,URINE Clear (CLEAR); COLOR,URINE Yellow (YELLOW); GLUCOSE, URINE (UA) Negative (NEGATIVE); KETONES,URINE Negative (NEGATIVE); LEUKOCYTE ESTERASE ,URINE Negative (NEGATIVE); NITRITE,URINE Negative (NEGATIVE); PH,URINE 6.5 (5-9); PROTEIN,URINE Negative (NEGATIVE); URINE, BLOOD Trace-intact (NEGATIVE); UROBILINOGEN,URINE 0.2 (0.2)
[2023-11-02 20:07] LABS: URINE RBC, MICROSCOPIC 0-2 (0-2)
[2023-11-02 20:20] VITALS: BMI 28.2
[2023-11-02] MEDS ORDERED: XANAX PO PRN (20:40)
[2023-11-02] MEDS ORDERED: MIRALAX PO PRN (21:00)
[2023-11-02] MEDS: DESYREL PO SCH (21:10)
[2023-11-02] MEDS: PERCOCET 5-325 PO PRN (21:10)
[2023-11-03] MEDS: ZOSYN 4.5 GM 4.5 GM in SODIUM CHLORIDE 100ML 100 ML IV SCH (00:36)
[2023-11-03] MEDS: DUONEB NEB SCH ×2 (04:42→05:22)
[2023-11-03] MEDS: VANCOMYCIN 1 GRAM/200 ML PREMIX 1 GM/200 ML BAG IV SCH (05:03)
[2023-11-03 05:27] LABS: BASOPHILS # (AUTO) 0.1 K/uL (0-0.2); BASOPHILS % (AUTO) 0.4 % (0.0-3.0); EOSINOPHILS # (AUTO) 0.1 K/ul (0.0-0.7); EOSINOPHILS % (AUTO) 0.9 % (0.0-7.0); HEMOGLOBIN 10.4 g/dl (12.0-16.0); IMMATURE GRANULOCYTE # (AUTO) 0.1 (0.0-1.0); IMMATURE GRANULOCYTE % (AUTO) 0.4 % (0.0-5.0); LYMPHOCYTES # (AUTO) 1.1 K/uL (0.60-3.4); LYMPHOCYTES % (AUTO) 9.8 (10.0-50.0); MEAN CORPUSCULAR HEMOGLOBIN 30.4 pg (27.0-31.0); MEAN CORPUSCULAR HGB CONC 30.6 (31.8-35.4); MEAN CORPUSCULAR VOLUME 99.4 fl (81.0-99.0); MONOCYTES # (AUTO) 0.6 K/uL (0.4-2.0); MONOCYTES % (AUTO) 5.4 (0-10); NEUTROPHILS # (AUTO) 9.6 K/ul (2.0-6.9); NEUTROPHILS % (AUTO) 83.1 % (42.2-75.2); PLATELET COUNT 208 10^3/uL (140-440); RDW COEFFICIENT OF VARIATION 13.2 % (11.6-14.8); RED BLOOD COUNT 3.42 10^6/ul (4.20-5.40); WHITE BLOOD COUNT 11.58 K/ul (4.6-10.2)
[2023-11-03 05:38] LABS: ALBUMIN 3.55 g/dL (3.5-5.0); ALKALINE PHOSPHATASE 50.8 U/L (53-141); ASPARTATE AMINO TRANSFERASE 20.2 U/L (14-36); BILIRUBIN,TOTAL 3.04 mg/dL (0.2-1.3); BLOOD UREA NITROGEN 18.5 mg/dL (7-17); CALCIUM 7.92 mg/dL (8.4-10.2); CARBON DIOXIDE 25.1 mmol/L (22-30.0); CHLORIDE 105.7 mmol/L (98-107); CREATININE 0.83 mg/dL (0.60-1.30); GLUCOSE 113.4 mg/dL (74-106); POTASSIUM 3.9 mmol/L (3.5-5.1); SODIUM 135.5 mmol/L (134.5-145); TOTAL PROTEIN 5.99 g/dL (6.3-8.2)
[2023-11-03] MEDS: PLAVIX PO SCH (08:07)
[2023-11-03] MEDS: DYAZIDE PO SCH (08:07)
--- NOTE | 2023-11-03 10:52 | PCM ---
Date of Service Date Seen by Provider: 11/03/23 Time Seen by Provider: 08:50 Admit Day/Time Admission Date: 11/02/23 Admission Time: 19:57 Reason for Admission Chief Complaint: SEPSIS,PNEUMONIA Hospital Provider Hospital Provider: CHRIS BURNS PA-C, [facility] [place] Primary Care Physician: RANDY BRICENO MD History of Present Illness History of Present Illness: Patient is a 78 year old female with pmhx of hypertension, osteoporosis, DJD, ATN, chronic respiratory failure on 4L at night, anemia, COPD, depression, ASHD, GERD who presents to the ER with fever, cough, SOB. Patient states she had a pcp apt yesterday morning and felt fine, it was just a routine check up. She went to eat at a [email or web address] restaurant but was feeling terrible all of a sudden with chills. By time she got home she vomited and she decided to go to ER. In ER she was found to have 102 temp. WBC elevated at 16. Procal negative. CXR showed questionable infiltrates. She met sepsis criteria and was given fluids, zosyn, and vanc. She was admitted to med surg. CT chest was ordered showing right sided pneumonia. Case Discussed With Case Discussed With: Patient's case was discussed with the ER Physicians, Dr. Min. [facility] Medical History Compression fracture of L1 vertebra Dr. Ponce S32.010A - Wedge compression fracture of first lumbar vertebra, initial encounter for closed fracture (ICD-10) Compression fracture of T8 vertebra Dr. Ponce S22.060A - Wedge compression fracture of T7-T8 vertebra, initial encounter for closed fracture (ICD-10) Compression fracture of T7 vertebra Dr. Ponce S22.060A - Wedge compression fracture of T7-T8 vertebra, initial encounter for closed fracture (ICD-10) Compression fracture of T9 vertebra Dr. Ponce S22.070A - Wedge compression fracture of T9-T10 vertebra, initial encounter for closed fracture (ICD-10) Diverticulitis K57.92 - Diverticulitis of intestine, part unspecified, without perforation or abscess without bleeding (ICD-10) Chest pain R07.9 - CHEST PAIN, UNSPECIFIED (ICD-10) Lumbar compression fracture S32.000A - WEDGE COMPRESSION FRACTURE OF UNSP LUMBAR VERTEBRA, INIT (ICD-10) Adult general medical exam Z00.00 - Encounter for general adult medical examination without abnormal findings (ICD-10) Left carotid artery occlusion I65.22 - Occlusion and stenosis of left carotid artery (ICD-10) Hypertension 2013 I10 - Essential (primary) hypertension (ICD-10) Hyperlipidemia for a few years E78.5 - Hyperlipidemia, unspecified (ICD-10) Personal history of mental disorder of pain a few years Z86.59 - Personal history of other mental and behavioral disorders (ICD-10) Surgical History Status post carotid endarterectomy 2012 Ranral glem Z98.890 - Other specified postprocedural states (ICD-10) History of carotid endarterectomy left; 07/02/23 Z98.890 - Other specified postprocedural states (ICD-10) History of gastrointestinal surgery 2013 gall bladder Z98.890 - Other specified postprocedural states (ICD-10) Family History SISTER Psychosis Mother Cerebral aneurysm FATHER Cardiovascular disease Social History Smoking and tobacco status: Former smoker Alcohol intake: former Substance use type: does not use Special chet needs: No Agree to transfusion: Yes Adopted: No Caregiver/support person: No Foster care: No Household members: spouse Housing: house Marital status: M Lives independently: Yes Daycare: no daycare service: No skilled nursing: No History of recent travel: No Do you think of yourself as: straight/heterosexual Current gender identity: female Seatbelt use: always Drives intoxicated or rides with intoxicated driver wheelchair: No Water heater temperature set < 120 degrees: Yes Working smoke detector in home: Yes Fire extinguisher in home: Yes Carbon monoxide detector in home: Yes Allergies Allergies Allergy/AdvReac Type Severity Reaction Status Date / Time cefaclor [From Ceclor] AdvReac Difficulty Verified 11/02/23 16:30 Breathing cephalexin [From Keflex] AdvReac Verified 11/02/23 16:30 chlorzoxazone AdvReac Anaphylaxis Verified 11/02/23 16:30 [From Parafon Forte] Iodinated Contrast Media AdvReac Difficulty Verified 11/02/23 16:30 [Iodinated Contrast Media - Breathing IV Dye] latex AdvReac Difficulty Verified 11/02/23 16:30 Breathing nitrofurantoin macrocrystal AdvReac Rash Verified 11/02/23 16:30 [From Macrodantin] [id number] Reductase AdvReac muscle Verified 11/02/23 16:30 Inhibitor cramps Sulfa (Sulfonamide AdvReac Unknown Verified 11/02/23 16:30 Antibiotics) keflex AdvReac Unknown Unknown Uncoded 11/02/23 16:30 Current Medications Home Medications clopidogrel 75 mg tablet (Plavix) 75 mg PO DAILY 10/08/13 [History Confirmed 11/02/23 Last Taken 03/02/19 07:00] oxycodone-acetaminophen 5 mg-325 mg tablet 1 tab PO Q6H PRN pain 08/10/23 [History Confirmed 11/02/23 Last Taken Unknown] ipratropium 0.5 mg-albuterol 3 mg (2.5 mg base)/3 mL nebulization soln 3 ml inhalation TID #90 mL 08/20/23 [Rx Confirmed 11/02/23 Last Taken Unknown] clonidine HCl 0.1 mg tablet 0.1 mg PO Q8H PRN hypertensive emergency 09/05/23 [History Confirmed 11/02/23 Last Taken Unknown] alprazolam 0.25 mg tablet (Xanax) 0.25 mg PO BID PRN anxiety #20 tabs 09/20/23 [Rx Confirmed 11/02/23 Last Taken Unknown] ferrous sulfate 325 mg (65 mg iron) tablet 325 mg PO EVERY OTHER DAY 11/02/23 [History Confirmed 11/02/23 Last Taken Unknown] polyethylene glycol 3350 17 gram/dose oral powder (Miralax) 17 g PO DAILY PRN constipation 11/02/23 [History Confirmed 11/02/23 Last Taken Unknown] trazodone 50 mg tablet See Rx Instructions .Route .COMPLEX #30 tabs 11/02/23 [Rx Confirmed 11/02/23 Last Taken Unknown] triamterene 37.5 mg-hydrochlorothiazide 25 mg tablet 1 tab PO QDAY PRN hypertension 11/02/23 [History Confirmed 11/02/23 Last Taken Unknown] Home Acetaminophen (Acetaminophen 325 Mg Tablet) 650 mg PO Q4H PRN PRN Reason: Mild Pain Last Admin: 11/03/23 11:07 Dose: 650 mg Albuterol/Ipratropium (Ipratropium/Albuterol Vial.Neb) 3 ml NEB RTTID [facility] Last Admin: 11/03/23 05:22 Dose: 3 ml Alprazolam (Alprazolam 0.25 Mg Tablet) 0.25 mg PO BID PRN PRN Reason: Anxiety Clopidogrel Bisulfate (Clopidogrel Bisulfate 75 Mg Tablet) 75 mg PO DAILY [facility] Last Admin: 11/03/23 08:07 Dose: 75 mg Doxycycline Hyclate (Doxycycline Hyclate 100 Mg Capsule) 100 mg PO Q12HR [facility] Stop: 11/06/23 20:59 Enoxaparin Sodium (Enoxaparin Sodium 40 Mg/0.4 Ml Syr) 40 mg SUBCUT DAILY [facility] Ferrous Sulfate (Ferrous Sulfate 324 Mg Tablet.Dr) 324 mg PO EVERY OTHER DAY [facility] Guaifenesin (Guaifenesin 600 Mg Tablet.Er) 600 mg PO Q12HR [facility] Last Admin: 11/03/23 11:13 Dose: 600 mg Piperacillin Sod/Tazobactam (Sod 4.5 gm/ Sodium Chloride) 100 mls @ 200 mls/hr IV Q6HR [facility] Stop: 11/06/23 00:00 Last Admin: 11/03/23 13:02 Dose: 200 mls/hr Oxycodone/Acetaminophen (Oxycodone/Acetaminophen 5/325 Mg Tablet) 1 tab PO Q6H PRN PRN Reason: MODERATE PAIN Last Admin: 11/03/23 12:14 Dose: 1 tab Polyethylene Glycol (Polyethylene Glycol 17 Gm Powd.Pack) 17 gm PO DAILY PRN PRN Reason: Constipation Saccharomyces Boulardii (Saccharomyces Boulardii 250 Mg Capsule) 250 mg PO BID [facility] Last Admin: 11/03/23 11:13 Dose: 250 mg Sodium Chloride (0.9% Sodium Chloride 10 Ml Disp.Syrin) 1 syr IVF Q8HR [facility] Last Admin: 11/03/23 13:10 Dose: 1 syr Trazodone HCl (Trazodone Hcl 50 Mg Tablet) 50 mg PO BEDTIME [facility] Last Admin: 11/02/23 21:10 Dose: 50 mg Triamterene/Hydrochlorothiazide (Triamterene/Hydrochlorothiazid 37.5/25 Mg Capsule) 1 cap PO EVERY OTHER DAY [facility] Last Admin: 11/03/23 08:07 Dose: 1 cap Discontinued Medications Acetaminophen (Acetaminophen 500 Mg Tablet) 500 mg PO ONCE STA Stop: 11/02/23 16:39 Last Admin: 11/02/23 16:52 Dose: Not Given Albuterol/Ipratropium (Ipratropium/Albuterol Vial.Neb) 3 ml NEB ONCE STA Stop: 11/02/23 16:47 Last Admin: 11/02/23 17:00 Dose: 3 ml Albuterol/Ipratropium (Ipratropium/Albuterol Vial.Neb) 3 ml NEB TID [facility] Last Admin: 11/03/23 04:42 Dose: Not Given Famotidine (Famotidine Inj 20 Mg/2 Ml Vial) 20 mg IVP ONCE ONE Stop: 11/02/23 16:24 Last Admin: 11/02/23 17:15 Dose: 20 mg Sodium Chloride (Sodium Chloride) 1,000 mls @ 1,000 mls/hr IV BOLUS ONE Stop: 11/02/23 17:22 Last Infusion: 11/02/23 18:21 Dose: Infused Lactated Ringer's (Lactated Ringers) 1,000 mls @ 1,000 mls/hr IV BOLUS STA Stop: 11/02/23 17:35 Last Admin: 11/02/23 18:14 Dose: 30 mls/hr Piperacillin Sod/Tazobactam (Sod 3.375 gm/ Sodium Chloride) 100 mls @ 200 mls/hr IV ONCE ONE Stop: 11/02/23 17:14 Last Admin: 11/02/23 17:19 Dose: 200 mls/hr VANCOMYCIN/WATER FOR INJ (PEG) (Vancomycin 1 Gram/200 Ml Premix) 1 gm in 200 mls @ 200 mls/hr IV ONCE ONE Stop: 11/02/23 17:59 Last Admin: 11/02/23 17:56 Dose: 200 mls/hr VANCOMYCIN/WATER FOR INJ (PEG) (Vancomycin 1 Gram/200 Ml Premix) 1 gm in 200 mls @ 200 mls/hr IV Q12H MICHAEL Stop: 11/03/23 10:00 Last Admin: 11/03/23 05:03 Dose: 200 mls/hr Ketorolac Tromethamine (Ketorolac Tromethamine 15 Mg/Ml Vial) 15 mg IVP ONCE STA Stop: 11/02/23 16:39 Last Admin: 11/02/23 17:16 Dose: 15 mg Ondansetron HCl (Ondansetron Hcl/Pf 4 Mg/2 Ml Sdv) 4 mg IVP ONCE STA Stop: 11/02/23 16:24 Last Admin: 11/02/23 17:14 Dose: 4 mg Opioid Naive vs. Tolerant Does Patient Take Opioids?: Yes Is Patient Opioid Naive?: No What is Opioid Naive?: *Opioid Naive implies the patient is not already taking opioids or not chronically receiving opioids on a daily basis. *PRN dosing is not "usually" associated with tolerance. *Patients are at higher risk of over-sedation and aspiration. What is Opioid Tolerant?: *Opioid Tolerance implies less than the expected response to an opioid. *Acquired tolerance is defined by the patient taking 60mg of oral morphine daily (or equianalgesic dose of another opioid) for 1 week or more. *Often associated with chronic pain. *May take more than usual dose to achieve desired pain control. Review of Systems Constitutional: Reports Fever, Fatigue and Weakness Head: Reports Normocephalic and Atraumatic Cardiovascular: Denies Chest pain, Chest Pressure or Edema Respiratory: Reports Cough and Shortness of air Gastrointestinal: Denies Nausea, Vomiting, Diarrhea, Abdominal pain or Melena Genitourinary: Denies Dysuria or Frequency Musculoskeletal: Reports Other (+chronic back pain) Dermatologic: Denies Rashes Neurological: Reports Weakness; Denies Headache Physical examination Most Recent Vital Signs: Most Recent Vital Signs Temperature 97.7 F 11/03/23 10:00 Temperature Source Temporal Artery Scan 11/03/23 10:00 Temperature Source Infrared 11/02/23 16:22 Pulse Rate 70 11/03/23 10:00 Respiratory Rate 14 11/03/23 10:00 Blood Pressure 113/64 11/03/23 10:00 Blood Pressure Mean 80 11/03/23 10:00 Blood Pressure Right Arm 115/70 11/02/23 19:57 Blood Pressure Location Right Arm 11/03/23 10:00 Blood Pressure Position Sitting 11/03/23 10:00 O2 Sat by Pulse Oximetry 96 11/03/23 10:00 Oxygen Delivery Method Nasal Cannula 11/03/23 10:00 Oxygen Flow Rate 3 11/03/23 10:00 Height 5 ft 11/02/23 19:57 Weight 144 lb 8 oz 11/02/23 19:57 Telemetry Type Remote Telemetry 11/03/23 07:00 Telemetry Monitoring Continues 11/03/23 07:00 Telemetry Heart Rate 74 11/03/23 07:00 Telemetry SPO2 94 08/20/23 07:00 EKG AK Interval 0.24 H 11/03/23 07:00 EKG QRS Interval 0.04 L 11/03/23 07:00 Telemetry Strip Reading SR with 1 AVB 11/03/23 07:00 Appearance: Positive Well-appearing, Well-nourished, No Apparent Distress and Alert and Oriented x3 Skin: Positive [place], Warm and Good Turgor; Negative Rashes HEENT: Positive Normocephalic and Atraumatic Neck: Positive Supple and Midline Trachea Chest/Lungs: Positive Symmetrical With Equal Breath Sounds and Rhonci (right sided) Heart: Positive RRR GI/: Positive Soft, Nontender, Bowel Sounds Normal and No Distention Extremities: Negative Edema Neurological: Positive Motor intact, Cranial Nerves Intact, Alert, Oriented and Other (+generalized weakness ) Psychiatric: Positive Oriented x4, Appropriate Mood and Appropriate Affect Labs This Visit Labs This Visit: Labs This Visit 11/02/23 11/02/23 11/02/23 16:44 16:55 17:02 WBC 16.36 H D RBC 4.06 L Hgb 12.3 Hct 38.7 MCV 95.3 MCH 30.3 MCHC 31.8 RDW Coeff of Cristiane 12.8 Plt Count 272 Immature Gran % (Auto) 0.7 Neut % (Auto) 87.8 H Lymph % (Auto) 6.7 L Stephens % (Auto) 4.3 Eos % (Auto) 0.1 Baso % (Auto) 0.4 Neut # (Auto) 14.4 H Lymph # (Auto) 1.1 Stephens # (Auto) 0.7 Eos # (Auto) 0.0 Baso # (Auto) 0.1 Immature Gran # (Auto) 0.1 PT 10.2 INR 0.98 Sodium 132.4 L Potassium 3.98 Chloride 101.8 Carbon Dioxide 21.7 L Anion Gap 12.88 BUN 17.5 H Creatinine 0.67 Estimated GFR (MDRD) 85.00 BUN/Creatinine Ratio 26.11 Glucose 125.8 H Lactic Acid 1.58 Calcium 9.51 Total Bilirubin 1.84 H AST 24.0 ALT 17.4 Alkaline Phosphatase 72.0 Troponin I 0.033 NT-Pro-B Natriuret Pep 498 H Total Protein 7.73 Albumin 4.78 Globulin 2.95 Albumin/Globulin Ratio 1.62 Procalcitonin < 0.05 Urine Color Urine Clarity Urine pH Ur Specific Corinne Urine Protein Urine Glucose (UA) Urine Ketones Urine Blood Urine Nitrite Urine Bilirubin Urine Urobilinogen Ur Leukocyte Esterase Urine Microscopic RBC Ur Squamous Epith Cells Influ A Molecular Assay Negative by naat Influ B Molecular Assay Negative by naat RSV Antigen Negative by naat SARS CoV-2 RNA Rapid VANESSA Negative 11/02/23 11/02/23 11/02/23 17:07 19:50 20:00 WBC RBC Hgb Hct MCV MCH MCHC RDW Coeff of Cristiane Plt Count Immature Gran % (Auto) Neut % (Auto) Lymph % (Auto) Stephens % (Auto) Eos % (Auto) Baso % (Auto) Neut # (Auto) Lymph # (Auto) Stephens # (Auto) Eos # (Auto) Baso # (Auto) Immature Gran # (Auto) PT INR Sodium Potassium Chloride Carbon Dioxide Anion Gap BUN Creatinine Estimated GFR (MDRD) BUN/Creatinine Ratio Glucose Lactic Acid Calcium Total Bilirubin AST ALT Alkaline Phosphatase Troponin I 0.045 NT-Pro-B Natriuret Pep 488 H Total Protein Albumin Globulin Albumin/Globulin Ratio Procalcitonin Urine Color Yellow Urine Clarity Clear Urine pH 6.5 Ur Specific Corinne 1.015 Urine Protein Negative Urine Glucose (UA) Negative Urine Ketones Negative Urine Blood Trace-intact H Urine Nitrite Negative Urine Bilirubin Negative Urine Urobilinogen 0.2 Ur Leukocyte Esterase Negative Urine Microscopic RBC 0-2 Ur Squamous Epith Cells Not Reportable Influ A Molecular Assay Influ B Molecular Assay RSV Antigen SARS CoV-2 RNA Rapid VANESSA 11/03/23 05:01 WBC 11.58 H RBC 3.42 L Hgb 10.4 L Hct 34.0 L MCV 99.4 H MCH 30.4 MCHC 30.6 L RDW Coeff of Cristiane 13.2 Plt Count 208 Immature Gran % (Auto) 0.4 Neut % (Auto) 83.1 H Lymph % (Auto) 9.8 L Stephens % (Auto) 5.4 Eos % (Auto) 0.9 Baso % (Auto) 0.4 Neut # (Auto) 9.6 H Lymph # (Auto) 1.1 Stephens # (Auto) 0.6 Eos # (Auto) 0.1 Baso # (Auto) 0.1 Immature Gran # (Auto) 0.1 PT INR Sodium 135.5 Potassium 3.90 Chloride 105.7 Carbon Dioxide 25.1 Anion Gap 8.60 BUN 18.5 H Creatinine 0.83 Estimated GFR (MDRD) 66.00 BUN/Creatinine Ratio 22.28 Glucose 113.4 H Lactic Acid Calcium 7.92 L Total Bilirubin 3.04 H AST 20.2 ALT 13.0 Alkaline Phosphatase 50.8 L Troponin I NT-Pro-B Natriuret Pep Total Protein 5.99 L Albumin 3.55 Globulin 2.44 Albumin/Globulin Ratio 1.45 Procalcitonin Urine Color Urine Clarity Urine pH Ur Specific Corinne Urine Protein Urine Glucose (UA) Urine Ketones Urine Blood Urine Nitrite Urine Bilirubin Urine Urobilinogen Ur Leukocyte Esterase Urine Microscopic RBC Ur Squamous Epith Cells Influ A Molecular Assay Influ B Molecular Assay RSV Antigen SARS CoV-2 RNA Rapid VANESSA Imaging Imaging: EXAM: FRONTAL AND LATERAL VIEWS OF THE CHEST. HISTORY: Sepsis COMPARISON: 08/18/2019 for FINDINGS: Aortic atherosclerosis. Cardiac silhouette is enlarged. Lungs are hyperexpanded. No consolidating infiltrate. Linear stranding lung bases bilaterally may reflect atelectasis or early infiltrate. Postoperative change in the neck. No pneumothorax. Small effusion not excluded. No acute osseous abnormality. IMPRESSION: 1. Chronic-appearing findings with superimposed atelectasis or early infiltrate lung bases. EXAM: CHEST CT WITHOUT CONTRAST HISTORY: Hypoxia. Fever. TECHNIQUE: CT acquisition of the chest from the thoracic inlet to the upper abdomen without IV contrast administration. 2-D coronal and sagittal reformatted images were obtained from the axial source images. IV Contrast: None. CT Dose Reduction Techniques Performed: Yes. COMPARISON: 07/14/2018 FINDINGS: Surgical clips in the right neck, again noted. Apparent vascular stent in the left carotid artery, only partially imaged. Interval development of mildly enlarged precarinal node. Measures 1.0 cm in short axis dimension. No enlarged hilar or axillary nodes identified. Several calcified right hilar nodes, again noted, secondary to old granulomatous disease. Heart size is normal. No significant pericardial fluid/thickening. No pleural fluid. Visualized portions of the upper abdomen included in this examination of the chest show a punctate nonobstructing stone of the partially visualized left kidney. Cholecystectomy, again noted. Lung window images again show mild to moderate emphysema. Stable biapical focal fibrosis, right greater than left. Interval development of moderate peribronchovascular consolidation and ground glass of the right lower lobe. 3 mm pulmonary nodule in the left upper lobe on image number 33, stable since June 2010, benign. Calcified granuloma of the right middle lobe, again noted. Bone window images show no significant lytic or sclerotic bone lesions. Stable mild scoliosis, convex to the right. Stable chronic mild T6 and T7 and mild to moderate L1 superior endplate compression fractures. Interval development of mild T8 and T9 probably chronic chronic mild compression fractures. Probable hemangioma of the T12 vertebral body, stable. IMPRESSION: 1. Moderate pneumonia of the right lower lobe. Follow-up CT chest in 1 month is recommended to show improvement. 2. Interval development of mildly enlarged mediastinal nodes, probably reactive. Attention to the node in the follow- up scan in 1 month. 3. Stable mild to moderate emphysema. Review Statement Review Statement: I have independently reviewed and interpreted the labs/EKGs/imaging that were ordered by the ER provider. I have reviewed all outside records that are available currently in our EMR including imaging/notes/labs from previous visits. Plan Plan: 1. Acute hypoxic respiratory failure in setting of CAP - RT consult, wean O2 w hen able, wears 4L at nighttime at baseline, does not wear through the day usually. 2. Community acquired pneumonia, right - Deescalate abx, stop vanc. Will cont zosyn based on allergies, add doxy. Strep pneumo and legionella ordered. MRSA swab. Wean O2 when able. Florastor and mucinex. 3. Sepsis in setting of CAP - BC pending. WBC count improved. Procal and LA neg. 4. Chronic pain - Cont home meds 5. Hypertension - Cont home meds. Pt has labile BPs at baseline. 6. Asthenia - PTOT DVT Prophylaxis: Lovenox Time Spent: Greater than 80 minutes spent with patient, 50% of the time spent with this patient was devoted to counseling and coordination of care. [facility] minutes spent discussing advance care planning. Admit to: Inpatient Discussed Plan of Care with Dr. Rissa Briceno. Medications Medication Orders: Medications Ordered Category Date Time Status 0.9 % Sodium Chloride [Saline Flush] Meds 11/03/23 13:00 Active 1 syr IVF Q8HR Acetaminophen [Tylenol] Meds 11/02/23 18:34 Active 650 mg PO Q4H PRN Alprazolam [Xanax] Meds 11/02/23 20:40 Active 0.25 mg PO BID PRN Clopidogrel Bisulfate [Plavix] Meds 11/03/23 09:00 Active 75 mg PO DAILY Doxycycline Hyclate Meds 11/03/23 21:00 Ordered 100 mg PO Q12HR Ferrous Sulfate Meds 11/04/23 09:00 Active 324 mg PO EVERY OTHER DAY Guaifenesin [Mucinex] Meds 11/03/23 10:50 Ordered 600 mg PO Q12HR Ipratropium/Albuterol Neb [Duoneb] Meds 11/03/23 06:00 Active 3 ml NEB RTTID Oxycodone-Acetaminophen [Percocet 5-325] Meds 11/02/23 20:40 Active 1 tab PO Q6H PRN Piperacillin Sodium/Tazobactam [Zosyn 4.5 gm] 4.5 gm Meds 11/03/23 00:00 Active 0.9 % Sodium Chloride [Sodium Chloride 100Ml] 100 ml IV Q6HR Polyethylene Glycol 3350 [Miralax] Meds 11/02/23 21:00 Active 17 gm PO DAILY PRN Saccharomyces Boulardii [Florastor] Meds 11/03/23 10:50 Ordered 250 mg PO BID Trazodone HCl [Desyrel] Meds 11/02/23 21:00 Active 50 mg PO BEDTIME Triamterene/Hydrochlorothiazid [Dyazide] Meds 11/03/23 09:00 Active 1 cap PO EVERY OTHER DAY
[2023-11-03] MEDS: TYLENOL PO PRN (11:07)
[2023-11-03] MEDS: MUCINEX PO SCH (11:13)
[2023-11-03] MEDS: FLORASTOR PO SCH (11:13)
[2023-11-03] MEDS: MOTRIN PO ONE (14:17)
[2023-11-03] MEDS: DOXYCYCLINE HYCLATE PO SCH (20:05)
[2023-11-04 05:38] LABS: BASOPHILS # (AUTO) 0.1 K/uL (0-0.2); BASOPHILS % (AUTO) 0.8 % (0.0-3.0); EOSINOPHILS # (AUTO) 0.2 K/ul (0.0-0.7); EOSINOPHILS % (AUTO) 2.1 % (0.0-7.0); HEMATOCRIT 35.7 % (37.0-47.0); IMMATURE GRANULOCYTE % (AUTO) 0.5 % (0.0-5.0); LYMPHOCYTES # (AUTO) 0.8 K/uL (0.60-3.4); LYMPHOCYTES % (AUTO) 9.4 (10.0-50.0); MEAN CORPUSCULAR HEMOGLOBIN 30.1 pg (27.0-31.0); MEAN CORPUSCULAR HGB CONC 30.8 (31.8-35.4); MEAN CORPUSCULAR VOLUME 97.8 fl (81.0-99.0); MONOCYTES # (AUTO) 0.4 K/uL (0.4-2.0); MONOCYTES % (AUTO) 5.1 (0-10); NEUTROPHILS # (AUTO) 6.9 K/ul (2.0-6.9); NEUTROPHILS % (AUTO) 82.1 % (42.2-75.2); PLATELET COUNT 223 10^3/uL (140-440); RDW COEFFICIENT OF VARIATION 13.2 % (11.6-14.8); RED BLOOD COUNT 3.65 10^6/ul (4.20-5.40); WHITE BLOOD COUNT 8.39 K/ul (4.6-10.2)
[2023-11-04 05:52] LABS: ALANINE AMINOTRANSFERASE 14.5 U/L (0-35); ALBUMIN 3.68 g/dL (3.5-5.0); ALKALINE PHOSPHATASE 57.2 U/L (53-141); ASPARTATE AMINO TRANSFERASE 19.4 U/L (14-36); BILIRUBIN,TOTAL 2.63 mg/dL (0.2-1.3); BLOOD UREA NITROGEN 15.1 mg/dL (7-17); CALCIUM 8.86 mg/dL (8.4-10.2); CARBON DIOXIDE 24.2 mmol/L (22-30.0); CHLORIDE 107.2 mmol/L (98-107); CREATININE 0.78 mg/dL (0.60-1.30); GLUCOSE 117.9 mg/dL (74-106); POTASSIUM 3.91 mmol/L (3.5-5.1); SODIUM 138.9 mmol/L (134.5-145); TOTAL PROTEIN 6.57 g/dL (6.3-8.2)
[2023-11-04] MEDS: LOVENOX SUBCUT SCH (08:33)
[2023-11-04] MEDS: FERROUS SULFATE PO SCH (08:44)
[2023-11-04] MEDS ORDERED: VANCOMYCIN 1.25 GM/250 ML BAG 1.25 GM/250 ML BAG IV SCH (09:00)
--- NOTE | 2023-11-04 09:38 | PCM.PROG ---
Date/Time Seen Date Seen by Provider: 11/04/23 Time Seen by Provider: 08:30 Provider Provider: CHRIS BURNS PA-C, [facility] Chief Complaint Chief Complaint: SEPSIS,PNEUMONIA Subjective Subjective: Patient states she feels better today. Breathing feels better. Going to work with therapy today. at bedside. Objective Appearance: Positive Well-appearing, Well-nourished, No Apparent Distress and Alert and Oriented x3 Chest/Lungs: Positive Symmetrical With Equal Breath Sounds and Rhonci (+improved ); Negative Rales or Wheezes Heart: Positive RRR GI/: Positive Soft, Nontender, Bowel Sounds Normal and No Distention Neurological: Positive Cranial Nerves Intact, Alert, Oriented and Other (+generalized weakness ) Vital Signs Vital Signs: Vital Signs: Last 24 Hours 11/03/23 10:00 11/03/23 10:00 11/03/23 12:15 Temperature 97.7 F 100.1 F Temperature Source Temporal Artery Scan Temporal Artery Scan Pulse Rate 70 Respiratory Rate 14 Blood Pressure 113/64 Blood Pressure Mean 80 Blood Pressure Location Right Arm Blood Pressure Position Sitting O2 Sat by Pulse Oximetry 98 96 Oxygen Delivery Method Nasal Cannula Nasal Cannula Nasal Cannula Oxygen Flow Rate 3.5 3 3.5 Telemetry Type Telemetry Monitoring Telemetry Heart Rate EKG NM Interval EKG QRS Interval Telemetry Strip Reading 11/03/23 13:00 11/03/23 13:05 11/03/23 14:00 Temperature 100 F 98.8 F Temperature Source Temporal Artery Scan Temporal Artery Scan Pulse Rate 93 Respiratory Rate 18 Blood Pressure 108/53 L Blood Pressure Mean 71 Blood Pressure Location Right Arm Blood Pressure Position Sitting O2 Sat by Pulse Oximetry 95 Oxygen Delivery Method Nasal Cannula Nasal Cannula Oxygen Flow Rate 3.5 3 Telemetry Type Bedside Monitor Telemetry Monitoring Continues Telemetry Heart Rate 90 EKG NM Interval 0.16 EKG QRS Interval 0.05 L Telemetry Strip Reading SR 11/03/23 14:00 11/03/23 14:15 11/03/23 15:08 Temperature 99 F 98.9 F Temperature Source Oral Pulse Rate Respiratory Rate Blood Pressure 90/60 Blood Pressure Mean 70 Blood Pressure Location Right Arm Blood Pressure Position Sitting O2 Sat by Pulse Oximetry 94 L Oxygen Delivery Method Nasal Cannula Nasal Cannula Nasal Cannula Oxygen Flow Rate 3 3 Telemetry Type Telemetry Monitoring Telemetry Heart Rate EKG NM Interval EKG QRS Interval Telemetry Strip Reading 11/03/23 18:00 11/03/23 19:00 11/03/23 19:44 Temperature 97.8 F Temperature Source Temporal Artery Scan Pulse Rate 94 92 Respiratory Rate 18 Blood Pressure 90/62 100/70 Blood Pressure Mean 71 80 Blood Pressure Location Right Arm Right Arm Blood Pressure Position Supine O2 Sat by Pulse Oximetry 95 Oxygen Delivery Method Nasal Cannula Nasal Cannula Oxygen Flow Rate 3 3 Telemetry Type Remote Telemetry Telemetry Monitoring Continues Telemetry Heart Rate 82 EKG NM Interval 0.25 H EKG QRS Interval 0.08 Telemetry Strip Reading SR WITH 1ST DEGREE AVB 11/03/23 20:00 11/03/23 20:23 11/03/23 20:25 Temperature 98.6 F Temperature Source Temporal Artery Scan Pulse Rate 86 Respiratory Rate 18 Blood Pressure 90/64 Blood Pressure Mean 72 Blood Pressure Location Right Arm Blood Pressure Position Supine O2 Sat by Pulse Oximetry 95 92 L Oxygen Delivery Method Nasal Cannula Nasal Cannula Nasal Cannula Oxygen Flow Rate 3 3 3 Telemetry Type Telemetry Monitoring Telemetry Heart Rate EKG NM Interval EKG QRS Interval Telemetry Strip Reading 11/04/23 01:00 11/04/23 01:41 11/04/23 05:10 Temperature 98.9 F Temperature Source Temporal Artery Scan Pulse Rate 75 Respiratory Rate 16 Blood Pressure 94/62 92/62 Blood Pressure Mean 72 72 Blood Pressure Location Right Arm Right Arm Blood Pressure Position Supine O2 Sat by Pulse Oximetry 95 Oxygen Delivery Method Nasal Cannula Nasal Cannula Oxygen Flow Rate 3 3 Telemetry Type Remote Telemetry Telemetry Monitoring Continues Telemetry Heart Rate 74 EKG NM Interval 0.22 H EKG QRS Interval 0.07 Telemetry Strip Reading SR WITH 1ST DEGREE AVB 11/04/23 05:25 Temperature Temperature Source Pulse Rate Respiratory Rate Blood Pressure Blood Pressure Mean Blood Pressure Location Blood Pressure Position O2 Sat by Pulse Oximetry 92 L Oxygen Delivery Method Nasal Cannula Oxygen Flow Rate 3 Telemetry Type Telemetry Monitoring Telemetry Heart Rate EKG NM Interval EKG QRS Interval Telemetry Strip Reading Lab Results Lab Results: Lab Results: Last 24 Hours 11/04/23 04:52 WBC 8.39 RBC 3.65 L Hgb 11.0 L Hct 35.7 L MCV 97.8 MCH 30.1 MCHC 30.8 L RDW Coeff of Cristiane 13.2 Plt Count 223 Immature Gran % (Auto) 0.5 Neut % (Auto) 82.1 H Lymph % (Auto) 9.4 L [place] % (Auto) 5.1 Eos % (Auto) 2.1 Baso % (Auto) 0.8 Neut # (Auto) 6.9 Lymph # (Auto) 0.8 [place] # (Auto) 0.4 Eos # (Auto) 0.2 Baso # (Auto) 0.1 Immature Gran # (Auto) 0.0 Sodium 138.9 Potassium 3.91 Chloride 107.2 H Carbon Dioxide 24.2 Anion Gap 11.41 BUN 15.1 Creatinine 0.78 Estimated GFR (MDRD) 71.00 BUN/Creatinine Ratio 19.35 Glucose 117.9 H Calcium 8.86 Total Bilirubin 2.63 H AST 19.4 ALT 14.5 Alkaline Phosphatase 57.2 Total Protein 6.57 Albumin 3.68 Globulin 2.89 Albumin/Globulin Ratio 1.27 Additional Comments Additional Comments: I have independently reviewed and interpreted the labs/EKGs/imaging ordered during this hospital stay. I have reviewed outside records that are available in our EMR that pertain to medical stay including imaging/notes/labs from previous visits. Active Medications Active Medications: Medications Generic Name Dose Route Start Last Admin Trade Name Freq PRN Reason Stop Dose Admin Acetaminophen 650 mg 11/02/23 18:34 11/03/23 11:07 Acetaminophen 325 Mg Tablet PO 650 mg Q4H PRN Administration Mild Pain Albuterol/Ipratropium 3 ml 11/03/23 06:00 11/04/23 05:23 Ipratropium/Albuterol Vial.Neb NEB 3 ml RTTID MICHAEL Administration Alprazolam 0.25 mg 11/02/23 20:40 Alprazolam 0.25 Mg Tablet PO BID PRN Anxiety Clopidogrel Bisulfate 75 mg 11/03/23 09:00 11/04/23 08:32 Clopidogrel Bisulfate 75 Mg Tablet PO 75 mg DAILY MICHAEL Administration Doxycycline Hyclate 100 mg 11/03/23 21:00 11/04/23 08:32 Doxycycline Hyclate 100 Mg Capsule PO 11/06/23 20:59 100 mg Q12HR MICHAEL Administration Enoxaparin Sodium 40 mg 11/04/23 09:00 11/04/23 08:33 Enoxaparin Sodium 40 Mg/0.4 Ml Syr SUBCUT 40 mg DAILY MICHAEL Administration Ferrous Sulfate 324 mg 11/04/23 09:00 11/04/23 08:44 Ferrous Sulfate 324 Mg Tablet.Dr PO 324 mg EVERY OTHER DAY MICHAEL Administration Guaifenesin 600 mg 11/03/23 10:50 11/04/23 08:32 Guaifenesin 600 Mg Tablet.Er PO 600 mg Q12HR MICHAEL Administration Piperacillin Sod/Tazobactam 100 mls @ 200 mls/hr 11/03/23 00:00 11/04/23 05 :13 Sod 4.5 gm/ Sodium Chloride IV 11/06/23 00:00 200 mls/hr Q6HR MICHAEL Administration Oxycodone/Acetaminophen 1 tab 11/02/23 20:40 11/03/23 12:14 Oxycodone/Acetaminophen 5/325 Mg Tablet PO 1 tab Q6H PRN Administration MODERATE PAIN Polyethylene Glycol 17 gm 11/02/23 21:00 Polyethylene Glycol 17 Gm Powd.Pack PO DAILY PRN Constipation Saccharomyces Boulardii 250 mg 11/03/23 10:50 11/04/23 08:32 Saccharomyces Boulardii 250 Mg Capsule PO 250 mg BID MICHAEL Administration Sodium Chloride 1 syr 11/03/23 13:00 11/04/23 05:13 0.9% Sodium Chloride 10 Ml Disp.Syrin IVF 1 syr Q8HR MICHAEL Administration Trazodone HCl 50 mg 11/02/23 21:00 11/03/23 20:05 Trazodone Hcl 50 Mg Tablet PO 50 mg BEDTIME MICHAEL Administration Triamterene/Hydrochlorothiazide 1 cap 11/03/23 09:00 11/03/23 08:07 Triamterene/Hydrochlorothiazid 37.5/25 Mg Capsule PO 1 cap EVERY OTHER DAY MICHAEL Administration Plan Plan: 1. Acute hypoxic respiratory failure in setting of CAP - RT consult, wean O2 when able, wears 4L at nighttime at baseline, does not wear through the day usually. 2. Community acquired pneumonia, right - Cont zosyn based on allergies, and doxy. Strep pneumo and legionella ordered. MRSA swab. Wean O2 when able. Florastor and mucinex. 3. Sepsis in setting of CAP - BC pending. WBC count improved. Procal and LA neg. 4. Chronic pain - Cont home meds 5. Hypertension - Cont home meds. Pt has labile BPs at baseline. 6. Asthenia - PTOT DVT Prophylaxis: Lovenox Review Statement Review Statement: I have personally discussed and reviewed the patient's visit/currently labs/imaging/decision making with Dr. Briceno, my supervising attending. Greater that 50 minutes spent with patient, 50% of the time spent with this patient was devoted to counseling and coordination of care.
--- NOTE | 2023-11-04 10:56 | RS.PTINEVL ---
Subjective Patient information Date of Evaluation: 11/04/23 Date of Arrival on Unit: 11/02/23 Admitted From:: Home Diagnosis: pneumonia Usual Living Arrangement: With Spouse Living Arrangement Comments: daughter currently lives with them Home Environment: House and Stairs (few) Medical History: Hypertension and COPD Medical History Comments:: depression, osteoporosis, DJD, chronic respiratory failure, ASHD, GERD, L1 compression fx as well as thoracic compression fx, mental disorder LATEX ALLERGY?: No Surgical History: Cholecystectomy Surgical History Comments:: CEA Medications: see chart Subjective Information/ Patient Comments:: pt states that she has been up to bathroom without difficulty since being in hospital. States she has a rwx at home but does not use it. Level of function Prior to this admission, the patient could do the following:: Independent Selfcare, Independent ADL's, Independent Ambulation (without AD ) and Participated in Social Activities Outside home Current Level of Function: Independent Current Equipment Used at Home: rwx Interventions Objective Patient Orientation: Person, Place, Time and Situation Current Interventions: IV's and Oxygen (2 lites ) Observation: pulse ox 94% during amb dropped to 91-92% and after treatment was 96% with O2 in place. Range of Motion ROM Right Upper Extremity AROM: WFL's Left Upper Extremity AROM: WFL's Right Lower Extremity AROM: WFL's Left Lower Extremity AROM: WFL's Muscle Strength Muscle Strength Right Upper Extremity: Normal Left Upper Extremity: Normal Right Lower Extremity: Mild Weakness (4+/5) Left Lower Extremity: Mild Weakness (4+/5) Sensation Sensation Right Upper Extremity: Intact/Normal Left Upper Extremity: Intact/Normal Right Lower Extremity: Intact/Normal Left Lower Extremity: Intact/Normal Palpation Palpation Findings: None/Normal Balance Sitting Balance and Reactions Static Sitting Balance: Good Dynamic Sitting Balance: Good Standing Balance and Reactions Static Standing Balance: Good Dynamic Standing Balance: Fair (fair+) Comments Balance Assessment Comments: Tinetti score 26/28 Functional Mobility Bed Mobility Rolling R/L: Independent Scooting: Independent Supine to Sit: Independent Sit to Supine: Independent Transfers Sit to Stand: Independent Stand to Sit: Independent Stand Pivot Transfers: Supervision Safety Awareness Safety Awareness: Fair LUTHER INDEX SCORE: n/a Ambulation Ambulation Assistive Device Used: Gait belt Orthotic/Prosthetic Device: No Distance: 140ft Assistance needed with Ambulation: Supervision Ambulation Comments: pt with occasional deviation from path however able to correct on her own. Factors Affecting Ambulation: Weakness and Limited Endurance Treatment time Units charged Gait trainin Time with patient Length of Evaluation: 17 Total treatment time: 27 Patient Education Education Patient Education: Activity Modification and Education of Plan of Care Teaching Recipient: Patient Teaching Methods: Discussion Comments: discussion regarding POC Assessment Assessment Problem List:: Weakness Rehab Potential: Good Further Therapy Indicated?: Yes Candidate for Swing Bed for Therapy Services?: pt is not a candidate for swing bed for therapy Evaluation Complexity: HISTORY: Medium, EXAM OF BODY SYSTEMS: Medium, CLINICAL PRESENTATION: Medium and CLINICAL DECISION MAKING: Medium Patient's Goal(s): to return home Penitentiary Goals GOAL #1: pt verbalize and demonstrate understanding of HEP. Goal to be met by: 11/05/23 GOAL #2: pt amb without AD and maintain path SBA Goal to be met by: 11/05/23 GOAL #3: pt verbalize understanding of home safety precautions. Goal to be met by: 11/05/23 Plan Plan of Care: Therapeutic EX and Therapeutic Activity Frequency of Treatment: 1-2 X day, as tolerated Duration of Treatment: 1 day Anticipated Discharge Destination: Home Treatment Diagnosis (ICD 10 Codes): muscle weakness M62.81 gai difficulty R 26.2 Has the Physician been added for Co-signature?: Yes
--- NOTE | 2023-11-04 10:57 | RS.OTINEVL ---
Subjective Patient information Date of Evaluation: 11/04/23 Date of Arrival on Unit: 11/02/23 Admitted From:: Home Diagnosis: Sepsis, Pneumonia PRECAUTIONS: Fall risk Usual Living Arrangement: With Spouse Living Arrangement Comments: home with spouse Home Environment: House Medical History: Hypertension Medical History Comments:: Sepsis, Pneumonia, Chronic respiratory failure, hypotension, anxiety, DJD, GERD, Lung nodule Medications: Refer to chart Subjective Information/ Patient Comments:: "I have a walker at home but I do not use it." Level of function Prior to this admission, the patient could do the following:: Independent Selfcare, Independent ADL's and Independent Ambulation Abilities prior to this admission: Daughter has moved in and cooks for the patient and her . Current Level of Function: Independent Current Equipment Used at Home: Nothing Pain Assessment Pain Pain Score: 0 Interventions Objective Patient Orientation: Person, Place and Situation Current Interventions: IV's, Oxygen and Telemetry Observation: Pt is I with supine to sitting EOB. Pt is I with sit EOB to stand. Pt does not use an Assistive device to walk. Pt does use Oxygen. Interventions ROM Right Upper Extremity AROM: WFL's Left Upper Extremity AROM: WFL's Strength Right Upper Extremity: Normal Left Upper Extremity: Normal Comments:: BUE 4/5. Sensation Right Upper Extremity: Intact/Normal Left Upper Extremity: Intact/Normal Balance Sitting Balance Static Sitting Balance: Normal Dynamic Sitting Balance: Normal Standing Balance Static Standing Balance: Normal Dynamic Standing Balance: Normal ADL Skills Self Feeding Self Feeding: Independent Grooming Grooming: Independent Grooming Set-up: Standing Bathing Bathing UE: Independent Bathing LE: Independent Bathing Set-up: Shower Dressing Dressing UE: Independent Dressing LE: Independent Toilet Management Toilet Hygiene: Independent Toilet Clothing Management: Independent Functional Mobility Bed Mobility Rolling R/L: Independent Scooting: Independent Supine to Sit: Independent Sit to Supine: Independent Transfers Sit to Stand: Independent Stand to Sit: Independent Stand Pivot Transfers: Independent Ambulation Weight Bearing Status: FWB Assistance needed with Ambulation: Independent Safety Awareness Safety Awareness: Good LUTHER INDEX SCORE: . Additional Treatment Performed Time with patient Length of Evaluation: 17 Total treatment time: 20 Activities Do you enjoy playing games?: Yes Would you be interested in leaving your room for activities?: Yes Would you enjoy group activities?: Yes Do you have difficulty with your vision?: Yes Patient Interests:: Watching Television and Visiting/Socializing Patient Education Patient Education: Education of diagnosis, Home Safety and Education of Plan of Care Teaching Recipient: Patient Teaching Methods: Teach Back Method Used and Discussion Assessment Rehab Potential: Good Candidate for Swing Bed for Therapy Services?: No Evaluation Complexity: HISTORY: Medium, EXAM OF BODY SYSTEMS: Medium and CLINICAL DECISION MAKING: Medium Patient's Goal(s): To go home as soon as possible. Short Term Goals Goals GOAL 1: No goals at this time. Snf Goals GOAL 1: No goals at this time. Plan Anticipated Discharge Destination: Home Treatment Diagnosis (ICD 10 Codes): . Has the Physician been added for Co-signature?: Yes
[2023-11-05 04:25] LABS: BASOPHILS % (AUTO) 0.5 % (0.0-3.0); EOSINOPHILS # (AUTO) 0.3 K/ul (0.0-0.7); EOSINOPHILS % (AUTO) 3.4 % (0.0-7.0); HEMATOCRIT 34.7 % (37.0-47.0); HEMOGLOBIN 10.6 g/dl (12.0-16.0); IMMATURE GRANULOCYTE % (AUTO) 0.5 % (0.0-5.0); LYMPHOCYTES # (AUTO) 0.9 K/uL (0.60-3.4); LYMPHOCYTES % (AUTO) 11.6 (10.0-50.0); MEAN CORPUSCULAR HEMOGLOBIN 29.9 pg (27.0-31.0); MEAN CORPUSCULAR HGB CONC 30.5 (31.8-35.4); MONOCYTES # (AUTO) 0.4 K/uL (0.4-2.0); MONOCYTES % (AUTO) 5.7 (0-10); NEUTROPHILS % (AUTO) 78.3 % (42.2-75.2); PLATELET COUNT 216 10^3/uL (140-440); RED BLOOD COUNT 3.54 10^6/ul (4.20-5.40); WHITE BLOOD COUNT 7.67 K/ul (4.6-10.2)
[2023-11-05 04:36] LABS: ALANINE AMINOTRANSFERASE 14.1 U/L (0-35); ALBUMIN 3.64 g/dL (3.5-5.0); ALKALINE PHOSPHATASE 56.8 U/L (53-141); ASPARTATE AMINO TRANSFERASE 29.7 U/L (14-36); BILIRUBIN,TOTAL 1.78 mg/dL (0.2-1.3); BLOOD UREA NITROGEN 16.7 mg/dL (7-17); CALCIUM 9.65 mg/dL (8.4-10.2); CARBON DIOXIDE 25.4 mmol/L (22-30.0); CHLORIDE 107.4 mmol/L (98-107); CREATININE 0.75 mg/dL (0.60-1.30); GLUCOSE 118.9 mg/dL (74-106); POTASSIUM 3.91 mmol/L (3.5-5.1); SODIUM 139.5 mmol/L (134.5-145); TOTAL PROTEIN 6.6 g/dL (6.3-8.2)
[2023-11-05 05:09] VITALS: RESP 20; TEMP 98.5
[2023-11-05 06:31] VITALS: BP 114/73; PULSE 92
--- NOTE | 2023-11-05 09:03 | DCSUM ---
Admission Date Admission Date: 11/02/23 Discharge Date Discharge Date: 11/05/23 Admission Diagnosis Admission Diagnosis: 1. Acute hypoxic respiratory failure in setting of CAP 2. Community acquired pneumonia, right 3. Sepsis in setting of CAP Discharge Diagnosis Discharge Diagnosis: 1. Acute hypoxic respiratory failure in setting of CAP, improved 2. Community acquired pneumonia, right 3. Sepsis in setting of CAP, ruled out 4. Chronic pain 5. Hypertension 6. COPD, chronic Hospital Provider Hospital Provider: CHRIS BURNS PA-C, [facility] Primary Care Physician Primary Care Physician: RANDY GOEL MD Summary of History and Physical Summary of History and Physical: Patient is a 78 year old female with pmhx of hypertension, osteoporosis, DJD, ATN, chronic respiratory failure on 4L at night, anemia, COPD, depression, ASHD, GERD who presents to the ER with fever, cough, SOB. Patient states she had a pcp apt yesterday morning and felt fine, it was just a routine check up. She went to eat at a [employer] restaurant but was feeling terrible all of a sudden with chills. By time she got home she vomited and she decided to go to ER. In ER she was found to have 102 temp. WBC elevated at 16. Procal negative. CXR showed questionable infiltrates. She met sepsis criteria and was given fluids, zosyn, and vanc. She was admitted to med surg. CT chest was ordered showing right sided pneumonia. Hospital Course Subjective: Patient was treated with zosyn and vanc initially due to meeting sepsis criteria. Vanc was discontinued and doxy was started on day 2. Patient was left on zosyn due to her allergies to cephalosporins. Patients labs improved. She ran a low grade fever initially but this resolved. She is feeling at her baseline and asking to go home to get better rest through the night. She feels she can care for herself at home. Did really well with therapy yesterday. She required up to 4L during the day and this was weaned. However she did require O2 especially with ambulation, as she dropped to 88% with the 3 step. Portable ox ygen ordered for patient. Will discharge home on remainder of doxycycline and augmentin, patient states she has tolerated pcns well in the past. Will complete a 5 day regimen. Patient declined home health. Legionella and strep pneumo urine antigen still pending. Of note, chest CT did recommend repeating in 1 month to ensure resolution. This was communicated to patient and granddaughter. Appearance: Pleasant, No Apparent Distress, Alert and Well-appearing HEENT: MMM CVS: No Murmur Abdomen: Soft, Non-Tender and No Distention Respiratory: Other (+nonlabored, completes full sentences, rhonchi much improved, no wheezing. ) Extremities: Other (+trace edema ) Vital Signs: Most Recent Vital Signs Temperature 98.5 F 11/05/23 05:06 Temperature Source Temporal Artery Scan 11/05/23 05:06 Temperature Source Infrared 11/02/23 16:22 Pulse Rate 92 11/05/23 06:30 Respiratory Rate 20 11/05/23 05:06 Blood Pressure 114/73 11/05/23 06:30 Blood Pressure Mean 86 11/05/23 06:30 Blood Pressure Right Arm 115/70 11/02/23 19:57 Blood Pressure Location Right Arm 11/05/23 06:30 Blood Pressure Position Supine 11/05/23 06:30 O2 Sat by Pulse Oximetry 97 11/05/23 06:30 Oxygen Delivery Method Nasal Cannula 11/05/23 08:00 Oxygen Flow Rate 3 11/05/23 08:00 Height 5 ft 11/02/23 19:57 Weight 144 lb 8 oz 11/02/23 19:57 Telemetry Type Remote Telemetry 11/05/23 06:49 Telemetry Monitoring Continues 11/05/23 06:49 Telemetry Heart Rate 90 11/05/23 06:49 Telemetry SPO2 100 11/05/23 06:49 EKG ND Interval 0.22 H 11/05/23 06:49 EKG QRS Interval 0.08 11/05/23 06:49 Telemetry Strip Reading SR with 1st degree AVB 11/05/23 06:49 Imaging: EXAM: FRONTAL AND LATERAL VIEWS OF THE CHEST. HISTORY: Sepsis COMPARISON: 08/18/2019 for FINDINGS: Aortic atherosclerosis. Cardiac silhouette is enlarged. Lungs are hyperexpanded. No consolidating infiltrate. Linear stranding lung bases bilaterally may reflect atelectasis or early infiltrate. Postoperative change in the neck. No pneumothorax. Small effusion not excluded. No acute osseous abnormality. IMPRESSION: 1. Chronic-appearing findings with superimposed atelectasis or early infiltrate lung bases. EXAM: CHEST CT WITHOUT CONTRAST HISTORY: Hypoxia. Fever. TECHNIQUE: CT acquisition of the chest from the thoracic inlet to the upper abdomen without IV contrast administration. 2-D coronal and sagittal reformatted images were obtained from the axial source images. IV Contrast: None. CT Dose Reduction Techniques Performed: Yes. COMPARISON: 07/14/2018 FINDINGS: Surgical clips in the right neck, again noted. Apparent vascular stent in the left carotid artery, only partially imaged. Interval development of mildly enlarged precarinal node. Measures 1.0 cm in short axis dimension. No enlarged hilar or axillary nodes identified. Several calcified right hilar nodes, again noted, secondary to old granulomatous disease. Heart size is normal. No significant pericardial fluid/thickening. No pleural fluid. Visualized portions of the upper abdomen included in this examination of the chest show a punctate nonobstructing stone of the partially visualized left kidney. Cholecystectomy, again noted. Lung window images again show mild to moderate emphysema. Stable biapical focal fibrosis, right greater than left. Interval development of moderate peribronchovascular consolidation and ground glass of the right lower lobe. 3 mm pulmonary nodule in the left upper lobe on image number 33, stable since June 2010, benign. Calcified granuloma of the right middle lobe, again noted. Bone window images show no significant lytic or sclerotic bone lesions. Stable mild scoliosis, convex to the right. Stable chronic mild T6 and T7 and mild to moderate L1 superior endplate compression fractures. Interval development of mild T8 and T9 probably chronic chronic mild compression fractures. Probable hemangioma of the T12 vertebral body, stable. IMPRESSION: 1. Moderate pneumonia of the right lower lobe. Follow-up CT chest in 1 month is recommended to show improvement. 2. Interval development of mildly enlarged mediastinal nodes, probably reactive. Attention to the node in the follow- up scan in 1 month. 3. Stable mild to moderate emphysema. Lab Results Last 24 Hours: 11/05/23 04:18 WBC 7.67 RBC 3.54 L Hgb 10.6 L Hct 34.7 L MCV 98.0 MCH 29.9 MCHC 30.5 L RDW Coeff of Cristiane 13.0 Plt Count 216 Immature Gran % (Auto) 0.5 Neut % (Auto) 78.3 H Lymph % (Auto) 11.6 Daggett % (Auto) 5.7 Eos % (Auto) 3.4 Baso % (Auto) 0.5 Neut # (Auto) 6.0 Lymph # (Auto) 0.9 Daggett # (Auto) 0.4 Eos # (Auto) 0.3 Baso # (Auto) 0.0 Immature Gran # (Auto) 0.0 Sodium 139.5 Potassium 3.91 Chloride 107.4 H Carbon Dioxide 25.4 Anion Gap 10.61 BUN 16.7 Creatinine 0.75 Estimated GFR (MDRD) 74.00 BUN/Creatinine Ratio 22.26 Glucose 118.9 H Calcium 9.65 Total Bilirubin 1.78 H AST 29.7 ALT 14.1 Alkaline Phosphatase 56.8 Total Protein 6.60 Albumin 3.64 Globulin 2.96 Albumin/Globulin Ratio 1.22 Discharge Instructions Discharge Planning: Discharge Planning > [address] Rissa Goel. Discharge Medications: Medications at Discharge (Home Meds & RX) clopidogrel 75 mg tablet (Plavix) 75 mg PO DAILY 10/08/13 oxycodone-acetaminophen 5 mg-325 mg tablet 1 tab PO Q6H PRN pain 08/10/23 ipratropium 0.5 mg-albuterol 3 mg (2.5 mg base)/3 mL nebulization soln 3 ml inhalation TID #90 mL 08/20/23 clonidine HCl 0.1 mg tablet 0.1 mg PO Q8H PRN hypertensive emergency 09/05/23 alprazolam 0.25 mg tablet (Xanax) 0.25 mg PO BID PRN anxiety #20 tabs 09/20/23 ferrous sulfate 325 mg (65 mg iron) tablet 325 mg PO EVERY OTHER DAY 11/02/23 polyethylene glycol 3350 17 gram/dose oral powder (Miralax) 17 g PO DAILY PRN constipation 11/02/23 trazodone 50 mg tablet See Rx Instructions .Route .COMPLEX #30 tabs 11/02/23 triamterene 37.5 mg-hydrochlorothiazide 25 mg tablet 1 tab PO QDAY PRN hypertension 11/02/23 Discharge Plan Discharge Discharge Orders: Discharge Patient (ONCE); Ordered 11/05/23 Ordered By: CHRIS BURNS Activity Restrictions/Additional Instructions: DISCHARGE TO HOME DX: PNEUMONIA PHARMACY: [facility] FOLLOW UP WITH DR. GOEL THIS COMING WEEK, CALL TUESDAY MORNING FOR APT TYLENOL NEEDED FOR FEVER RETURN WITH WORSENING SYMPTOMS FINISH ANTIBIOTICS TAKE PROBIOTIC (OVER THE COUNTER) TO HELP WITH GI UPSET Instructions: Pneumonia (GEN) Patient Disposition: HOME SELF-CARE Prescriptions: New doxycycline hyclate 100 mg Capsule 100 mg PO Q12HR 2 Days Qty: 4 0RF amoxicillin-pot clavulanate 875-125 mg tablet 1 tab PO BID 2 Days Qty: 4 0RF Rx Instructions: disregard cefpodoxime Continued alprazolam [Xanax] 0.25 mg tablet 0.25 mg PO BID PRN (Reason: anxiety) Qty: 20 1RF clopidogrel [Plavix] 75 MG tablet 75 mg PO DAILY oxycodone-acetaminophen 5-325 mg tablet 1 tab PO Q6H PRN (Reason: pain) ipratropium-albuterol 0.5 mg-3 mg(2.5 mg base)/3 mL solution for nebulization 3 ml inhalation TID Qty: 90 0RF clonidine HCl 0.1 mg tablet 0.1 mg PO Q8H PRN (Reason: hypertensive emergency) ferrous sulfate 325 mg (65 mg iron) tablet 325 mg PO EVERY OTHER DAY triamterene-hydrochlorothiazid 37.5-25 mg tablet 1 tab PO QDAY PRN (Reason: hypertension) Rx Instructions: if blood pressure over 170 systolic per family polyethylene glycol 3350 [Miralax] 17 gram/dose powder 17 g PO DAILY PRN (Reason: constipation) trazodone 50 mg tablet See Rx Instructions .ROUTE .COMPLEX Qty: 30 1RF Dose Instruction: TAKE ONE TABLET AT BEDTIME Rx Instructions: TAKE ONE TABLET AT BEDTIME Did you review [place] [employer] for ALL controlled substances?: Yes Discussed opioids are addictive and Narcan is available by prescription or from pharmacy.: No Condition: Stable
== END 2023-11-05 10:51 | disposition home or self-care (01) | DRG 193 ==
LOC: ED 16:20 → MEDSURG B 18:23
PROVIDERS: ADMIT Hospitalist; ATTEND Physician Assistant
DX: K21.9 Gastro-esophageal reflux disease without esophagitis; G89.29 Other chronic pain; J96.21 Acute and chronic respiratory failure with hypoxia; J18.9 Pneumonia, unspecified organism; J44.9 Chronic obstructive pulmonary disease, unspecified; I25.10 Atherosclerotic heart disease of native coronary artery without angina pectoris; F32.A Depression, unspecified; M81.0 Age-related osteoporosis without current pathological fracture; A41.9 Sepsis, unspecified organism; I10 Essential (primary) hypertension

== ENCOUNTER 2025-02-07 14:03 | Observation (INO) ==
--- NOTE | 2025-02-07 14:47 | ED.PDOC ---
General [facility] ED Provider: Dr. MARIA TERESA MAGUIRE MD Chief Complaint: Weakness Stated Complaint: Patient is an 80-year-old female reported to the emergency department for generalized weakness. Patient stated that this has been going on for the past few days. Patient stated that she has also had constipation for the past few days. Patient stated that she has cycles of diarrhea and then she will have constipation. Patient stated that she has been treated by her primary care physician for the constipation with fiber. Patient stated that her last bowel movement was this morning but was very minimal. Patient denies any hematochezia, hemoptysis, or melanic stools. Patient stated that she has just not had any energy recently. Patient stated that this is not normal for her. Patient stated that she has not had any falls, dizziness, syncopal episodes, chest pain, or any other acute symptoms. Patient stated that she has not had much of an appetite either so she has not been eating or drinking very much. Patient's vital signs are currently stable. Patient's GCS is 15. Time Seen by Provider: 02/07/25 14:13 Mode of Arrival: Walk-In Information Source: Patient Exam Limitations: No limitations Primary Care Provider: RANDY GOEL MD Nursing and Triage Documentation Reviewed and Agree: Yes Opioid Naive vs. Tolerant What is Opioid Naive?: *Opioid Naive implies the patient is not already taking opioids or not chronically receiving opioids on a daily basis. *PRN dosing is not "usually" associated with tolerance. *Patients are at higher risk of over-sedation and aspiration. What is Opioid Tolerant?: *Opioid Tolerance implies less than the expected response to an opioid. *Acquired tolerance is defined by the patient taking 60mg of oral morphine daily (or equianalgesic dose of another opioid) for 1 week or more. *Often associated with chronic pain. *May take more than usual dose to achieve desired pain control. Review of Systems Review Of Systems Constitutional: Reports No symptoms GI: Reports Abdominal pain Neurological: Reports Weakness All Other Systems: Reviewed and Negative [facility] Medical History Compression fracture of L1 vertebra Dr. Ponce S32.010A - Wedge compression fracture of first lumbar vertebra, initial encounter for closed fracture (ICD-10) Compression fracture of T8 vertebra Dr. Ponce S22.060A - Wedge compression fracture of T7-T8 vertebra, initial encounter for closed fracture (ICD-10) Compression fracture of T7 vertebra Dr. Ponce S22.060A - Wedge compression fracture of T7-T8 vertebra, initial encounter for closed fracture (ICD-10) Compression fracture of T9 vertebra Dr. Ponce S22.070A - Wedge compression fracture of T9-T10 vertebra, initial encounter for closed fracture (ICD-10) Diverticulitis K57.92 - Diverticulitis of intestine, part unspecified, without perforation or abscess without bleeding (ICD-10) Chest pain R07.9 - CHEST PAIN, UNSPECIFIED (ICD-10) Lumbar compression fracture S32.000A - WEDGE COMPRESSION FRACTURE OF UNSP LUMBAR VERTEBRA, INIT (ICD-10) Adult general medical exam Z00.00 - Encounter for general adult medical examination without abnormal findings (ICD-10) Left carotid artery occlusion I65.22 - Occlusion and stenosis of left carotid artery (ICD-10) Hypertension 2013 I10 - Essential (primary) hypertension (ICD-10) Hyperlipidemia for a few years E78.5 - Hyperlipidemia, unspecified (ICD-10) Personal history of mental disorder of pain a few years Z86.59 - Personal history of other mental and behavioral disorders (ICD-10) Family History SISTER Psychosis Mother Cerebral aneurysm FATHER Cardiovascular disease Social History Smoking and tobacco status: Former smoker Alcohol intake: former Substance use type: does not use Special chet needs: No Agree to transfusion: Yes Adopted: No Caregiver/support person: No Foster care: No Household members: spouse Housing: house Marital status: M Lives independently: Yes Daycare: no daycare service: No USP: No History of recent travel: No Do you think of yourself as: straight/heterosexual Current gender identity: female Seatbelt use: always Drives intoxicated or rides with intoxicated livery car driver: No Water heater temperature set < 120 degrees: Yes Working smoke detector in home: Yes Fire extinguisher in home: Yes Carbon monoxide detector in home: Yes Surgical History Status post carotid endarterectomy 2012 Ranral glem Z98.890 - Other specified postprocedural states (ICD-10) History of carotid endarterectomy left; 07/02/23 Z98.890 - Other specified postprocedural states (ICD-10) History of gastrointestinal surgery 2012 gall bladder Z98.890 - Other specified postprocedural states (ICD-10) Female Reproductive History Menstrual Hx Hysterectomy: No Hx Tubal Ligation: No Physical Exam Physical Exam Appearance: Reports Ill-appearing and Well-nourished Ill-appearing: None Pain Distress: None Eyes: Reports EDWARD, EOMI and Conjunctiva clear ENT: Reports Nose normal and Oropharynx normal Neck: Supple Respiratory: Reports Airway patent, Breath sounds clear, Breath sounds equal and Respirations nonlabored Cardiovascular: Reports RRR, Pulses normal and No rub GI/: Reports Soft, Bowel sounds normal and Tender (Bilateral lower abdominal tenderness. No masses or bruising noted. ) Musculoskeletal: Reports Normal strength, ROM intact, No edema and No calf tenderness Skin: Reports Warm, Dry and Normal color Neurological: Reports Sensation intact, Motor intact, Alert and Oriented Psychiatric: Reports Affect appropriate and Mood appropriate Physician Progress Note Physician Progress Note: Patient is an 80-year-old female reported to the emergency department for generalized weakness. Patient stated that this has been going on for the past few days. Patient stated that she has also had constipation for the past few days. Patient stated that she has cycles of diarrhea and then she will have constipation. Patient stated that she has been treated by her primary care physician for the constipation with fiber. Patient stated that her last bowel movement was this morning but was very minimal. Patient denies any hematochezia, hemoptysis, or melanic stools. Patient stated that she has just not had any energy recently. Patient stated that this is not normal for her. Patient stated that she has not had any falls, dizziness, syncopal episodes, chest pain, or any other acute symptoms. Patient stated that she has not had much of an appetite either so she has not been eating or drinking very much. Patient's vital signs are currently stable. Patient's GCS is 15. - Will order IV normal saline 1 L bolus for dehydration. - Will order an EKG and a troponin for patient's weakness. - Will order a chest x-ray for patient's weakness. - Will order baseline labs. - EKG shows normal sinus rhythm with left axis deviation. Ventricular rate 86 bpm. No acute STEMI noted. This EKG was interpreted by the ER physician. - Chest x-ray shows no acute cardiopulmonary disease. This radiograph was interpreted by the ER physician and over read by radiology. - Troponins negative. - Patient's potassium slightly low. Will give p.o. potassium 40 mEq. - CT of the abdomen pelvis showed - Lack of IV contrast limits the evaluation for infectious and neoplastic processes. Nonobstructing left renal calculi. Scattered colonic diverticulosis without evidence of acute diverticulitis. Appendix is not visualized. No inflammatory changes in the right lower quadrant. Moderate fecal burden. Small hiatal hernia. Cholecystectomy. Normal ductal dilatation. -([id number]) spoke to hospitalist, Amanda, who is agreed to accept this patient for generalized weakness, dehydration, and constipation. Patient's vital signs are stable at time of admissions. Amanda has accepted the patient to observational mission. Course Course 02/07/25 14:47 02/07/25 14:47 Orders, Labs, Meds: Lab Review 02/07/25 14:47 WBC 8.13 RBC 4.03 L Hgb 12.3 Hct 37.5 MCV 93.1 MCH 30.5 MCHC 32.8 RDW Coeff of Cristiane 14.4 Plt Count 259 Immature Gran % (Auto) 0.5 Neut % (Auto) 70.9 Lymph % (Auto) 19.4 Mitchell % (Auto) 7.1 Eos % (Auto) 1.5 Baso % (Auto) 0.6 Neut # (Auto) 5.8 Lymph # (Auto) 1.6 Mitchell # (Auto) 0.6 Eos # (Auto) 0.1 Baso # (Auto) 0.1 Immature Gran # (Auto) 0.0 Sodium 138.4 Potassium 3.37 L Chloride 95.2 L Carbon Dioxide 32.3 H Anion Gap 14.27 BUN 27.0 H Creatinine 0.86 Estimated GFR (MDRD) 63.00 BUN/Creatinine Ratio 31.39 Glucose 127.5 H Lactic Acid 1.68 Calcium 8.70 Magnesium 2.25 Total Bilirubin 1.37 H AST 27.7 ALT 20.5 Alkaline Phosphatase 64.1 Troponin I < 0.012 Total Protein 6.76 Albumin 3.91 Globulin 2.85 Albumin/Globulin Ratio 1.37 Orders Category Date Time Status EKG-(ED ONLY) Stat CARDIO 02/07/25 14:35 Completed CBC W/ AUTO DIFF Stat LAB 02/07/25 14:47 Completed CMP [COMPREHENSIVE METABOLIC PANEL] Stat LAB 02/07/25 14:47 Completed LACTIC ACID Stat LAB 02/07/25 14:47 Completed MAGNESIUM Stat LAB 02/07/25 14:47 Completed TROPONIN I Stat LAB 02/07/25 14:47 Completed URINALYSIS C & S IF INDICATED Stat LAB 02/07/25 15:26 Ordered Potassium Chloride [Potassium Chl 10% Oral Viridiana] Meds 02/07/25 15:30 Discontinued 40 meq PO ONCE STA Sodium Chloride 0.9% [Sodium Chloride] 1,000 ml Meds 02/07/25 14:35 Discontinued IV BOLUS CHEST, 1V AP ONLY Stat RADS 02/07/25 14:[address] ABDOMEN/PELVIS WO CONTRAST Stat RADS 02/07/25 14:42 Completed Medications Discontinued Medications Generic Name Dose Route Start Last Admin Trade Name Freq PRN Reason Stop Dose Admin Sodium Chloride 1,000 mls @ 1,000 mls/hr 02/07/25 14:35 02/07/25 15:26 Sodium Chloride IV 02/07/25 15:34 1,000 mls/hr BOLUS ONE Administration Potassium Chloride 40 meq 02/07/25 15:30 02/07/25 16:14 Potassium Chloride 40 Meq/30 Ml Cup PO 02/07/25 15:31 40 meq ONCE STA Administration Vital Signs: Temp Pulse Resp BP Pulse Ox 02/07/25 14:29 98.0 F 87 16 96/63 92 L Discharge Plan Discharge Patient Disposition: PLACED OBSERVATION Discharge Problem: Dehydration, Generalized weakness Abdominal pain Qualifiers: Abdominal location: unspecified location Qualified Code(s): R10.9 - Unspecified abdominal pain Constipation Qualifiers: Constipation type: unspecified constipation type Qualified Code(s): K59.00 - Constipation, unspecified Did you review [place] [employer] for ALL controlled substances?: Not Applicable ED Provider: MARIA TERESA MAGUIRE Condition: Stable
[2025-02-07 14:53] LABS: IMMATURE GRANULOCYTE # (AUTO) 0.0 (0.0-1.0); IMMATURE GRANULOCYTE % (AUTO) 0.5 % (0.0-5.0); RDW COEFFICIENT OF VARIATION 14.4 % (11.6-14.8)
--- NOTE | 2025-02-07 14:59 | DI ---
EXAM: CHEST RADIOGRAPH TECHNIQUE: Single frontal chest radiograph. HISTORY: Weakness. COMPARISON: 11/23/2024. FINDINGS: Lungs are hyperinflated and hyperlucent. Biapical pleural thickening and/or scar. No free air below the diaphragm. Heart is borderline to mildly prominent in size and similar with mild atherosclerotic calcification of the aorta. Airway is patent and midline. No free air below the diaphragm. There is no pleural effusion. There is no pneumothorax. Significant acute bony abnormality is not seen. Osteopenia and degenerative change of the spine with rightward curvature. IMPRESSION: 1. Heart is borderline prominent at least. Lungs demonstrate chronic changes without acute process otherwise. Details and other findings, as above.
[2025-02-07 15:05] LABS: CREATININE 0.86 mg/dL (0.60-1.30)
[2025-02-07] MEDS: SODIUM CHLORIDE 1,000 ML IV ONE (15:26)
--- NOTE | 2025-02-07 15:34 | CT ---
EXAM: CT OF THE ABDOMEN AND PELVIS WITHOUT CONTRAST COMPARISON: CT abdomen and pelvis 01/17/2024 HISTORY: Liver abdominal pain. TECHNIQUE: Axial CT images were obtained through the abdomen and pelvis without the administration of intravenous contrast. Coronal and sagittal reformatted images were also submitted for interpretation. FINDINGS: Liver: Normal morphology. Gallbladder: Cholecystectomy. Bile ducts: No intra or extrahepatic biliary ductal dilatation. Pancreas: No lesions. The main pancreatic duct is not dilated. Spleen: The spleen is not enlarged. Adrenal glands: Within normal limits. Kidneys: No hydronephrosis. Nonobstructing left renal calculi. Ureters: Within normal limits. Urinary bladder: Within normal limits. Reproductive organs: No pelvic masses. Hysterectomy. Peritoneum: No ascites or free intraperitoneal air. Bowel: Normal caliber. Scattered colonic diverticulosis without evidence of acute diverticulitis. Moderate fecal burden. Small hiatal hernia. Appendix is not visualized. No inflammatory changes in the right lower quadrant. Lymph nodes: No lymphadenopathy. Vessels: Atherosclerosis in the abdominal aorta and branch vessels. 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 Abdominal wall: Within normal limits. Osseous structures: Degenerative changes. Scoliosis. Mild height loss of the superior endplate of L4 and L1 vertebral bodies, unchanged. Lower thorax: Mild atelectasis and/or scarring in the lung bases. IMPRESSION: - Lack of IV contrast limits the evaluation for infectious and neoplastic processes. - Nonobstructing left renal calculi. - Scattered colonic diverticulosis without evidence of acute diverticulitis. - Appendix is not visualized. No inflammatory changes in the right lower quadrant. - Moderate fecal burden. Small hiatal hernia. - Cholecystectomy. Normal ductal dilatation. All CT scans are performed using dose optimization techniques as appropriate to the performed exam and include at least one of the following: Automated exposure control, adjustment of the mA and/or kV according to size, and the use of iterative reconstruction technique.
[2025-02-07] MEDS: POTASSIUM CHL 10% ORAL SOL PO STA (16:14)
[2025-02-07 16:52] LABS: GLUCOSE, URINE (UA) 2+ (NEGATIVE); LEUKOCYTE ESTERASE ,URINE Trace (NEGATIVE); URINE, BLOOD Negative (NEGATIVE)
[2025-02-07 17:00] LABS: HYALINE CASTS, URINE 0-2 (NOT PRESENT)
[2025-02-07] MEDS: CIPRO 400 MG/200 ML D5W 400 MG/200 ML BAG IV ONE (17:28)
[2025-02-07] MEDS ORDERED: TYLENOL PO PRN (17:52)
[2025-02-07] MEDS ORDERED: ZOFRAN SDV IVP PRN (17:52)
[2025-02-07] MEDS ORDERED: XANAX PO PRN (18:52)
[2025-02-07] MEDS ORDERED: PERCOCET 5-325 PO PRN (18:52)
[2025-02-07 19:32] VITALS: BMI 28.0
[2025-02-07] MEDS: LACTATED RINGERS 1,000 ML IV SCH (20:00)
[2025-02-07] MEDS: COREG PO SCH (21:14)
[2025-02-08 05:38] LABS: IMMATURE GRANULOCYTE # (AUTO) 0.0 (0.0-1.0); IMMATURE GRANULOCYTE % (AUTO) 0.3 % (0.0-5.0); RDW COEFFICIENT OF VARIATION 14.4 % (11.6-14.8)
[2025-02-08 06:07] LABS: CREATININE 0.71 mg/dL (0.60-1.30)
[2025-02-08] MEDS: VITAMIN D PO SCH (09:01)
[2025-02-08] MEDS: COREG PO SCH (09:01)
[2025-02-08] MEDS: PLAVIX PO SCH (09:02)
[2025-02-08 09:37] VITALS: BP 133/48; PULSE 72; RESP 17; TEMP 98
--- NOTE | 2025-02-08 11:11 | PCM.SS ---
Provider Provider: CHRIS BURNS PA-C, [facility] Admission Date Admission Date: 02/07/25 Discharge Date Discharge Date: 02/08/25 Primary Care Physician Primary Care Physician: RANDY BRICENO MD Chief Complaint Reason For Visit: GENERALIZED WEAKNESS, DEHYDRATION, CONSTIPATION History of Present Illness History of Present Illness: Admitted 02/07/25 16:57, this 80 year old /WHITE/F who presented to the ER with overall weakness and malaise. Patient states that she is just not been feeling well for the last several weeks. She has been diagnosed with a left eye issue that is caused her to not be able to see well and therefore cannot drive. She has continued to decline since this. Her independence has been taken away somewhat. She is feeling very depressed about this. She has not been eating and drinking very much. She states that anything she does try to do really wears her out. She has had alternating diarrhea and constipation but this has been chronic for her. She denies chest pain, shortness of breath, fever, urinar y symptoms. In the ER she was noted to have some mild dehydration. UA was suspected for mild UTI and she was given a dose of Cipro. Admitted to [facility] for observation. Today patient is feeling overall better. Urine culture showing no growth. BUN is improved to baseline. She has worked well with therapy. We discussed ordering home health therapy to try to help with her overall weakness and endurance. She states that she takes Lexapro but then later is found she had not been taking that for a while. We discussed restarting it at 5 mg. We discussed the new beginnings program as that may be helpful for her during this time. I encouraged her to still try to do things she loves such as reading, she could try audiobooks since she is having a hard time seeing. Encouraged her to continue going to anabaptism as she finds a lot of nayla in that. Will discharge home today. Patient in stable condition. [facility] Medical History Macular degeneration, right eye H35.30 - Unspecified macular degeneration (ICD-10) Congestive heart disease I50.9 - Heart failure, unspecified (ICD-10) Mini stroke G45.9 - Transient cerebral ischemic attack, unspecified (ICD-10) Compression fracture of L1 vertebra Dr. Ponce S32.010A - Wedge compression fracture of first lumbar vertebra, initial encounter for closed fracture (ICD-10) Compression fracture of T8 vertebra Dr. Ponce S22.060A - Wedge compression fracture of T7-T8 vertebra, initial encounter for closed fracture (ICD-10) Compression fracture of T7 vertebra Dr. Ponce S22.060A - Wedge compression fracture of T7-T8 vertebra, initial encounter for closed fracture (ICD-10) Compression fracture of T9 vertebra Dr. Ponce S22.070A - Wedge compression fracture of T9-T10 vertebra, initial encounter for closed fracture (ICD-10) Diverticulitis K57.92 - Diverticulitis of intestine, part unspecified, without perforation or abscess without bleeding (ICD-10) Chest pain R07.9 - CHEST PAIN, UNSPECIFIED (ICD-10) Lumbar compression fracture S32.000A - WEDGE COMPRESSION FRACTURE OF UNSP LUMBAR VERTEBRA, INIT (ICD-10) Adult general medical exam Z00.00 - Encounter for general adult medical examination without abnormal findings (ICD-10) Left carotid artery occlusion I65.22 - Occlusion and stenosis of left carotid artery (ICD-10) Hypertension 2013 I10 - Essential (primary) hypertension (ICD-10) Hyperlipidemia for a few years E78.5 - Hyperlipidemia, unspecified (ICD-10) Personal history of mental disorder of pain a few years Z86.59 - Personal history of other mental and behavioral disorders (ICD-10) Surgical History Status post carotid endarterectomy 2012 Ranral glem Z98.890 - Other specified postprocedural states (ICD-10) History of carotid endarterectomy left; 07/02/23 Z98.890 - Other specified postprocedural states (ICD-10) History of gastrointestinal surgery 2013 gall bladder Z98.890 - Other specified postprocedural states (ICD-10) Family History SISTER Psychosis Mother Cerebral aneurysm FATHER Cardiovascular disease Social History Smoking and tobacco status: Former smoker Alcohol intake: former Substance use type: does not use Special chet needs: No Agree to transfusion: Yes Adopted: No Caregiver/support person: No Foster care: No Household members: spouse Housing: house Marital status: M Lives independently: Yes Daycare: no daycare service: No long-term: No History of recent travel: No Do you think of yourself as: straight/heterosexual Current gender identity: female Seatbelt use: always Drives intoxicated or rides with intoxicated medical driver: No Water heater temperature set < 120 degrees: Yes Working smoke detector in home: Yes Fire extinguisher in home: Yes Carbon monoxide detector in home: Yes Medications Mecications: Medications at Discharge (Home Meds & RX) clopidogrel 75 mg tablet (Plavix) 75 mg PO DAILY 10/08/13 oxycodone-acetaminophen 5 mg-325 mg tablet 1 tab PO Q6H PRN pain 08/10/23 alprazolam 0.25 mg tablet (Xanax) 0.25 mg PO BID PRN anxiety #20 tabs 01/31/25 furosemide 20 mg tablet (Lasix) 20 mg PO QDAY #30 tabs 01/31/25 carvedilol 3.125 mg tablet (Coreg) 3.125 mg PO BID #60 tabs 02/05/25 cholecalciferol (vitamin D3) 75 mcg (3,000 unit) tablet 75 mcg PO DAILY 02/07/25 potassium chloride 10 mEq tablet,extended release(part/cryst) 10 meq PO DAILY 02/07/25 Allergies Allergies Allergy/AdvReac Type Severity Reaction Status Date / Time cefaclor (From Ceclor) AdvReac Difficulty Verified 02/07/25 14:24 Breathing cephalexin (From Keflex) AdvReac Unknown Verified 02/07/25 14:24 chlorzoxazone (From Parafon AdvReac Anaphylaxis Verified 02/07/25 14:24 Forte) Iodinated Contrast Media AdvReac Difficulty Verified 02/07/25 14:24 (Iodinated Contrast Media - Breathing IV Dye) latex AdvReac Difficulty Verified 02/07/25 14:24 Breathing nitrofurantoin macrocrystal AdvReac Rash Verified 02/07/25 14:24 (From Macrodantin) [id number] Reductase AdvReac muscle Verified 02/07/25 14:24 Inhibitor cramps Sulfa (Sulfonamide AdvReac Unknown Verified 02/07/25 14:24 Antibiotics) keflex AdvReac Unknown Unknown Uncoded 02/07/25 14:24 Review of Systems Constitutional: Reports Fatigue, Weakness and Loss of appetite; Denies Fever Head: Reports Normocephalic and Atraumatic Respiratory: Denies Cough or Shortness of air Gastrointestinal: Reports Diarrhea and Constipation; Denies Nausea or Vomiting Genitourinary: Denies Dysuria or Frequency Dermatologic: Denies Rashes Neurological: Reports Weakness; Denies Dizziness or Syncope Psychiatric: Reports Depression and Anxiety; Denies Hopelessness or Suicidal Physical Examination Appearance: Positive Well-appearing, Well-nourished, No Apparent Distress and Alert and Oriented x3 Head: Positive Normocephalic and Atraumatic Neck: Positive Supple, Non-Tender and Trachea Midline Heart: Positive RRR Respiratory: Positive Breath Sounds Clear, Bilaterally and Respirations Nonlabored; Negative Crackles, Rhonchi or Wheezes GI/: Positive Soft, Nontender, Bowel sounds normal and No Distention Neurological: Positive Cranial nerves intact, Alert and Oriented Psychiatric: Positive Normal Judgement, Normal Insight, Affect Appropriate and Mood Appropriate Vital Signs (Last 4 Hours) Vital Signs Last 4 Hours: Vital Signs: Last 4 Hours 02/08/25 08:00 02/08/25 08:20 02/08/25 09:00 Temperature Temperature Source Pulse Rate 78 Respiratory Rate 16 Blood Pressure 130/62 Blood Pressure Mean 84 Blood Pressure Location Right Arm Blood Pressure Position Supine O2 Sat by Pulse Oximetry Oxygen Delivery Method Room Air Room Air Room Air 02/08/25 09:36 02/08/25 10:00 02/08/25 10:54 Temperature 98.0 F Temperature Source Temporal Artery Scan Pulse Rate 72 Respiratory Rate 17 Blood Pressure 133/48 L Blood Pressure Mean 76 Blood Pressure Location Right Arm Blood Pressure Position Sitting O2 Sat by Pulse Oximetry 95 Oxygen Delivery Method Room Air Room Air Room Air Labs This Visit Labs This Visit: Labs This Visit 02/07/25 02/07/25 02/08/25 14:47 16:35 05:00 WBC 8.13 6.58 RBC 4.03 L 3.50 L Hgb 12.3 10.6 L Hct 37.5 33.5 L MCV 93.1 95.7 MCH 30.5 30.3 MCHC 32.8 31.6 L RDW Coeff of Cristiane 14.4 14.4 Plt Count 259 196 Immature Gran % (Auto) 0.5 0.3 Neut % (Auto) 70.9 69.7 Lymph % (Auto) 19.4 21.3 [place] % (Auto) 7.1 6.1 Eos % (Auto) 1.5 1.8 Baso % (Auto) 0.6 0.8 Neut # (Auto) 5.8 4.6 Lymph # (Auto) 1.6 1.4 [place] # (Auto) 0.6 0.4 Eos # (Auto) 0.1 0.1 Baso # (Auto) 0.1 0.1 Immature Gran # (Auto) 0.0 0.0 Sodium 138.4 137.8 Potassium 3.37 L 3.66 Chloride 95.2 L 103.4 Carbon Dioxide 32.3 H 28.0 Anion Gap 14.27 10.06 BUN 27.0 H 20.2 H Creatinine 0.86 0.71 Estimated GFR (MDRD) 63.00 79.00 BUN/Creatinine Ratio 31.39 28.45 Glucose 127.5 H 99.3 Lactic Acid 1.68 Calcium 8.70 7.97 L Magnesium 2.25 Total Bilirubin 1.37 H 1.30 AST 27.7 26.9 ALT 20.5 18.4 Alkaline Phosphatase 64.1 57.8 Troponin I < 0.012 Total Protein 6.76 5.49 L Albumin 3.91 2.97 L Globulin 2.85 2.52 Albumin/Globulin Ratio 1.37 1.17 Urine Color Yellow Urine Clarity Clear Urine pH 7.0 Ur Specific [place] 1.015 Urine Protein Negative Urine Glucose (UA) 2+ H Urine Ketones Negative Urine Blood Negative Urine Nitrite Negative Urine Bilirubin Negative Urine Urobilinogen 0.2 Ur Leukocyte Esterase Trace H Urine Microscopic WBC 2-5 Ur Squamous Epith Cells 2-5 Urine Bacteria Trace Hyaline Casts 0-2 Urine Mucus Trace Microbiology This Visit 02/07/25 16:35 Urine,Random Urine Culture - Preliminary Imaging Imaging: EXAM: CHEST RADIOGRAPH TECHNIQUE: Single frontal chest radiograph. HISTORY: Weakness. COMPARISON: 11/23/2024. FINDINGS: Lungs are hyperinflated and hyperlucent. Biapical pleural thickening and/or scar. No free air below the diaphragm. Heart is borderline to mildly prominent in size and similar with mild atherosclerotic calcification of the aorta. Airway is patent and midline. No free air below the diaphragm. There is no pleural effusion. There is no pneumothorax. Significant acute bony abnormality is not seen. Osteopenia and degenerative change of the spine with rightward curvature. IMPRESSION: 1. Heart is borderline prominent at least. Lungs demonstrate chronic changes without acute process otherwise. Details and other findings, as above. Review Review Statement: I have independently reviewed and interpreted the labs/EKGs/imaging that were ordered by the ER provider. I have reviewed all outside records that are available currently in our EMR including imaging/notes/labs from previous visits. Plan Reccomendations/Plan: 1. Dehydration, mild - Fluids overnight, BUN improved to baseline today 2. Weakness - PTOT consult, will order outpt home health 3. Depression - Will discharge on lexapro to restart, consider new beginnings 4. Hypertension - Cont home meds 5. Chronic pain - Cont home meds Today patient is feeling overall better. Urine culture showing no growth. BUN is improved to baseline. She has worked well with therapy. We discussed ordering home health therapy to try to help with her overall weakness and endurance. She states that she takes Lexapro but then later is found she had not been taking that for a while. We discussed restarting it at 5 mg. We discussed the new beginnings program as that may be helpful for her during this time. I encouraged her to still try to do things she loves such as reading, she could try audiobooks since she is having a hard time seeing. Encouraged her to continue going to anabaptism as she finds a lot of nayla in that. Will discharge home today. Patient in stable condition. Discharge diagnoses: 1. Dehydration, mild, resolved 2. Weakness, improved 3. Depression 4. Hypertension 5. Chronic pain Additional Planning: Case discussed with ED Physician, Dr. Bliss. DVT Prophylaxis: Ambulation Advanced Care Plannin minutes spent discussing advance care planning. Admit to: Obs Discussed Plan of Care with Dr. Rissa Briceno. Review With Patient Reviewed with Patient and Family: Patient and family have been counseled on condition and care plan and have no immediate questions. I have personally discussed and reviewed the patient's visit/current labs/imaging/decision making with Dr. Rissa Briceno, my supervising attending. Total number of minutes spent with patient [85] min. More than 50% of the time spent with this patient was devoted to counseling and coordination of care. Time of Admission:02/07/25 16:57 Time of Discharge: 02/08/25 0845 Discharge Plan Discharge Discharge Orders: Discharge Patient (ONCE); Ordered 02/08/25 Ordered By: CHRIS BURNS Activity Restrictions/Additional Instructions: DISCHARGE TO HOME DX: WEAKNESS, DEHYDRATION ACTIVITY: [facility] ORDERED RESTART YOUR LEXAPRO, IT WILL TAKE SOME TIME FOR IT TO HAVE EFFECT NEW BEGINNINGS RECOMMENDED You have been referred to [facility]. They will be in contact with you to initiate care. If you have any questions or need to speak with them, their contact number is [phone]. Instructions: Weakness (ED) Patient Disposition: HOME SELF-CARE Prescriptions: New escitalopram oxalate [Lexapro] 5 mg tablet 5 mg PO DAILY Qty: 30 0RF Continued alprazolam [Xanax] 0.25 mg tablet 0.25 mg PO BID PRN (Reason: anxiety) Qty: 20 1RF furosemide [Lasix] 20 mg tablet 20 mg PO QDAY Qty: 30 2RF clopidogrel [Plavix] 75 MG tablet 75 mg PO DAILY potassium chloride 10 mEq tablet,ER particles/crystals 10 meq PO DAILY cholecalciferol (vitamin D3) 75 mcg (3,000 unit) tablet 75 mcg PO DAILY oxycodone-acetaminophen 5-325 mg tablet 1 tab PO Q6H PRN (Reason: pain) carvedilol [Coreg] 3.125 mg tablet 3.125 mg PO BID Qty: 60 0RF Rx Instructions: must administer with a meal/food Did you review [place] [employer] for ALL controlled substances?: Not Applicable Discussed opioids are addictive and Narcan is available by prescription or from pharmacy.: No Condition: Stable Referrals: RANDY BRICENO MD [Primary Care Provider, Cardiology] - 02/14/25 3:20 pm
== END 2025-02-08 13:31 | disposition home or self-care (01) ==
LOC: MEDSURG B 14:03 → ED 14:03 → MEDSURG B 17:45
PROVIDERS: ADMIT Hospitalist; ATTEND Physician Assistant